=== PATIENT | female | born 1965 | race Caucasian/White ===

== ENCOUNTER 2016-09-05 15:30 | Emergency (ER) | payer BC ==
[~2016-09-05 15:30] MED LIST: ABIL10TA PO; ABIL5TAB PO; PROZ20CA11 PO; PROZ40CA PO; TRIL600T PO; ZOLP-187 PO
[2016-09-05] MEDS ORDERED: MECLIZINE 12.5 MG TAB As Ordered ONE (18:43)
[2016-09-05] MEDS ORDERED: METOCLOPRAMIDE INJ 10MG/2ML VIAL (J2765) As Ordered ONE (18:44)
[2016-09-05 18:56] LABS: BASO % 0.3 % (0.0-1.0); EOS # 0.1 K/mm3 (0.0-0.50); EOS % 1.1 % (0.0-3.0); LARGE UNSTAINED CELL # 0.2 K/mm3 (0.0-0.4); LARGE UNSTAINED CELL % 1.5 % (0.0-4.0); LYMPH # 3.8 K/mm3 (1.5-4.5); LYMPH % 30.8 % (24.0-44.0); MEAN CORPUSCULAR HGB CONC 33.6 g/dl (32.0-36.5); MEAN CORPUSCULAR VOLUME 89.2 fl (80.0-96.0); MONO # 0.4 K/mm3 (0.0-0.8); MONO % 2.9 % (0.0-5.0); NEUTROPHILS # 7.8 K/mm3 (1.8-7.7); NEUTROPHILS % 63.4 % (36.0-66.0); PLATELET COUNT, AUTOMATED 384 k/mm3 (150-450); RED CELL DISTRIBUTION WIDTH 13.4 % (11.5-14.5); WHITE BLOOD COUNT 12.2 K/mm3 (4.0-10.0)
[2016-09-05 19:15] LABS: ANION GAP 9 MEQ/L (8-16); BLOOD UREA NITROGEN 8 MG/DL (7-18); CALCIUM LEVEL 9.1 MG/DL (8.5-10.1); CARBON DIOXIDE LEVEL 27 MEQ/L (21-32); CHLORIDE LEVEL 106 MEQ/L (98-107); CREATININE FOR GFR 0.79 MG/DL (0.55-1.02); GLOMERULAR FILTRATION RATE > 60.0 (>51); GLUCOSE, FASTING 93 MG/DL (70-105); POTASSIUM SERUM 4.2 MEQ/L (3.5-5.1); SODIUM LEVEL 142 MEQ/L (136-145)
--- NOTE | 2016-09-05 19:30 | REPUSA ---
CLINICAL HISTORY: HEAD PRESSURE, RT HEARING LOSS TECHNIQUE: Multiple axial brain CT scan sections were obtained from base to vertex without contrast a dministration. COMMENTS: The study shows normal configuration of sella turcica. There are no intra or extra-axial collections. There is no mass effect or midline shift. There is no evidence of hematoma formation. No hydrocephal us is present. No abnormal calcifications are noted. No significant abnormalities are seen either in the posterior fossa or supratentorial compartment. The sinuses and mastoid air cells are patent. IMPRESSION: No evidence of acute intracranial pathology. Thank you for your kind referral of this patient.
--- NOTE | 2016-09-05 20:42 | EDDOCDS ---
Nurse's Notes [facility] Name: Kelly Simpson Age: 51 yrs Sex: Female : 1965 Arrival Date: 09/05/2016 Time: 15:30 Bed I7 29 Private MD: NONE Diagnosis: Headache;Dizziness and giddiness;Other and unspecified hearing loss-PROGRESSIVE, RIGHT EAR Presentation: 09/05 15:42 Presenting complaint: Patient states: pain to right side of head and dizziness. for a srm week. hearing loss to right ear worsening over past year. had MRI and it was negative. Presenting complaint: Patient states: pt thinks she had a seizure the other night ( Sunday night). when falling asleep was tingling and couldn't open hr eyes. Adult Sepsis Screening: The patient does not have new or worsening altered mentation. Patient's respiratory rate is less than 22. Systolic blood pressure is greater than 100. Patient has a qSOFA score of 0- Negative Sepsis Screen. Suicide/Homicide risk assessment- the patient denies having any suicidal and/or homicidal ideations and does not present with any other emotional, behavioral or mental health complaints. Status: Patient is not a rn support services or dependent. Transition of care: patient was not received from another setting of care. 15:42 Method Of Arrival: Walkin/Carried/Asstd srm 15:42 Acuity: GALEN Level 3 srm Triage Assessment: 15:44 General: Appears in no apparent distress, Behavior is anxious, appropriate for age, srm cooperative. Pain: Pain currently is 6 out of 10 on a pain scale. HIV screening NA for this visit Offered previously. EENT: Reports right ear pain. 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 Effexor Oral daily 2. gabapentin 600 mg Oral tab twice a day 3. Ritalin 20 mg Oral tab daily prn 4. Ritalin 5 mg Oral tab 1 tab at 12 noon prn - PMHx: Anxiety; Depression; - PSHx: Hysterectomy; ; oophorectomy; - Social history: Smoking status: Patient uses tobacco products, current every day smoker. No barriers to communication noted, The patient speaks fluent Bermudian, Speaks appropriately for age. - Family history: Not pertinent. - : The pt / caregiver states he / she is not on anticoagulants. Home medication list is obtained from the patient. - Exposure Risk Screening:: None identified. Screenin:14 Screening information is obtained from the patient. Fall risk: No risks identified. hs1 Assistance ADL's: requires no assistance with activities of daily living. Abuse/DV Screen: The patient / caregiver reports he/she is: not in a situation that causes fear, pain or injury. Nutritional screening: No deficits noted. Advance Directives: There is no active DNR order. home support is adequate. Assessment: 18:14 General: Appears in no apparent distress, comfortable, Behavior is appropriate for age, hs1 cooperative. Pain: Location: right ear. Neurological: Level of Consciousness is awake, alert. Respiratory: Airway is patent Respiratory effort is even, unlabored, Respiratory pattern is regular, symmetrical. Derm: Skin is pink, warm & dry. normal. 18:45 General: Appears in no apparent distress, Behavior is cooperative. Pain: Location: mcp behind right ear Pain currently is 6 out of 10 on a pain scale. Neurological: Reports headache lightheadedness. Respiratory: Airway is patent Respiratory effort is even, unlabored. Derm: Skin is pink, warm & dry. 19:23 General: Appears in no apparent distress, comfortable, Behavior is appropriate for age, ttb cooperative, pleasant. Pain: Location: right side of head. Neurological: Level of Consciousness is awake, alert, Denies blurred vision dizziness, numbness diplopia. Cardiovascular: Heart tones S1 S2 present Chest pain is denied. Respiratory: Airway is patent Respiratory effort is even, unlabored, Breath sounds are clear in right upper lobe and left upper lobe Denies cough, shortness of breath. GI: Denies nausea, vomiting, pain. Derm: Skin is normal. 20:03 Reassessment: Patient appears in no apparent distress at this time. Patient states cz symptoms have improved. pt ambulated in agustin with no difficulty. Vital Signs: 15:31 BP 159 / 99; Pulse 132; Resp 22; Temp 99.8(O); Pulse Ox 97% on R/A; Weight 79.38 kg elp (R); Height 5 ft. 3 in. (160.02 cm) (R); Pain 7/10; 18:12 BP 165 / 97; Pulse 103; Resp 18; Pulse Ox 94% ; hs1 18:47 BP 148 / 90 Supine; Pulse 98; mcp 18:47 BP 151 / 89 Sitting; Pulse 97; mcp 18:47 BP 142 / 99 Standing; Pulse 113; mcp 15:31 Body Mass Index 31.00 (79.38 kg, 160.02 cm) elp 18:12 pt noted to be very anxious and scared about possibly diagnoses. hs1 Vitals: 15:31 Log In Time: September 05, 2016 at 15:29. RN notified that patient meets Red Flag elp criteria. ED Course: 15:31 Patient visited by Berkley Ellington PCA. elp 15:31 NONE is Private Physician. elp 15:31 Patient moved to Waiting elp 15:37 Patient moved to Pre RCE elp 15:43 Triage Initiated srm 17:50 Patient moved to Triage 1 srm 18:06 Patient name changed from Kelly\S\A\S\Calvin\S\ to Kelly\S\Roula\S\Calvin. EDMS 18:06 [facility] ck7 18:06 Ar Bell MD is Attending Physician. ck7 18:06 Patient visited by Ajay Be RPA-C. ck7 18:08 [facility] Payment Agreement was scanned into MED[employer] and attached to record. gb 18:15 Patient moved to I hs1 18:44 MED Profile Sent. [facility] 18:44 CBC with Diff Sent. [facility] 18:46 Patient visited by Ajay Be RPA-C. ck7 18:46 The patient / caregiver is instructed regarding the plan of care and ED course. Patient dia has correct armband on for positive identification. Placed in gown. Bed in low position. Call light in reach. 18:46 Inserted saline lock: 20 gauge in right antecubital area and blood collected. The mcp patient tolerated the procedure well. Labs drawn. (by ED staff). Sent per order to lab. 18:47 Patient visited by Valeri Horan RN. mcp 18:47 Patient visited by Valeri Horan RN. mcp 19:22 Patient visited by Janice Edmonds RN. ttb 19:25 Patient visited by Janice Edmonds RN. ttb 19:57 Patient visited by Ajay Be RPA-C. ck7 20:23 CT Head Without Contrast Returned. EDMS 20:32 Patient visited by Ajay Be RPA-C. ck7 20:33 Yumiko Ya MD is Referral Physician. ck7 20:40 No procedures done that require assistance. cz Administered Medications: 18:54 Drug: NS 0.9% 1000 ml [sodium chloride 0.9 % intravenous solution] Route: IV; Rate: kpj bolus; Site: right antecubital; 20:41 Follow up: IV Status: Completed infusion cz 18:54 Drug: Metoclopramide 10 mg [metoclopramide 5 mg/mL injection solution] Route: IV; Rate: kpj 40 mg/hr; Infused Over: 15 mins; Site: right antecubital; 19:23 Follow up: Response: No Adverse Reaction; IV Status: Completed infusion ttb 20:41 Follow up: IV Status: Completed infusion cz 18:54 Drug: Meclizine 25 mg [meclizine 12.5 mg tablet (2 tabs)] Route: PO; kpj Order Results: Lab Order: CBC with Diff; SPEC'M 09/05/16 18:41 Test: WHITE BLOOD COUNT; Value: 12.2; Range: 4.0-10.0; Abnormal: Above high normal; Units: K/mm3; Status: F Test: RED BLOOD COUNT; Value: 5.09; Range: 4.00-5.40; Units: M/mm3; Status: F Test: HEMOGLOBIN; Value: 15.2; Range: 12.0-16.0; Units: g/dl; Status: F Test: HEMATOCRIT; Value: 45.4; Range: 36.0-47.0; Units: %; Status: F Test: MEAN CORPUSCULAR VOLUME; Value: 89.2; Range: 80.0-96.0; Units: fl; Status: F Test: MEAN CORPUSCULAR HEMOGLOBIN; Value: 30.0; Range: 27.0-33.0; Units: pg; Status: F Test: MEAN CORPUSCULAR HGB CONC; Value: 33.6; Range: 32.0-36.5; Units: g/dl; Status: F Test: RED CELL DISTRIBUTION WIDTH; Value: 13.4; Range: 11.5-14.5; Units: %; Status: F Test: PLATELET COUNT, AUTOMATED; Value: 384; Range: 150-450; Units: k/mm3; Status: F Test: NEUTROPHILS %; Value: 63.4; Range: 36.0-66.0; Units: %; Status: F Test: LYMPH %; Value: 30.8; Range: 24.0-44.0; Units: %; Status: F Test: MONO %; Value: 2.9; Range: 0.0-5.0; Units: %; Status: F Test: EOS %; Value: 1.1; Range: 0.0-3.0; Units: %; Status: F Test: BASO %; Value: 0.3; Range: 0.0-1.0; Units: %; Status: F Test: LARGE UNSTAINED CELL %; Value: 1.5; Range: 0.0-4.0; Units: %; Status: F Test: NEUTROPHILS #; Value: 7.8; Range: 1.8-7.7; Abnormal: Above high normal; Units: K/mm3; Status: F Test: LYMPH #; Value: 3.8; Range: 1.5-4.5; Units: K/mm3; Status: F Test: MONO #; Value: 0.4; Range: 0.0-0.8; Units: K/mm3; Status: F Test: EOS #; Value: 0.1; Range: 0.0-0.50; Units: K/mm3; Status: F Test: BASO #; Value: 0.0; Range: 0.0-0.2; Units: K/mm3; Status: F Test: LARGE UNSTAINED CELL #; Value: 0.2; Range: 0.0-0.4; Units: K/mm3; Status: F Lab Order: [facility] Profile; SPEC'M 09/05/16 18:41 Test: GLUCOSE, FASTING; Value: 93; Range: 70-105; Units: MG/DL; Status: F Test: BLOOD UREA NITROGEN; Value: 8; Range: 7-18; Units: MG/DL; Status: F Test: CREATININE FOR GFR; Value: 0.79; Range: 0.55-1.02; Units: MG/DL; Status: F Test: GLOMERULAR FILTRATION RATE; Value: > 60.0; Range: >51; Status: F Test: SODIUM LEVEL; Value: 142; Range: 136-145; Units: MEQ/L; Status: F Test: POTASSIUM SERUM; Value: 4.2; Range: 3.5-5.1; Units: MEQ/L; Status: F Test: CHLORIDE LEVEL; Value: 106; Range: 98-107; Units: MEQ/L; Status: F Test: CARBON DIOXIDE LEVEL; Value: 27; Range: 21-32; Units: MEQ/L; Status: F Test: ANION GAP; Value: 9; Range: 8-16; Units: MEQ/L; Status: F Test: CALCIUM LEVEL; Value: 9.1; Range: 8.5-10.1; Units: MG/DL; Status: F Test Note: ; Units are mL/min/1.73 m2 Chronic Kidney Disease Staging per NKF: Stage I & II GFR >=60 Normal to Mildly Decreased Stage III GFR 30-59 Moderately Decreased Stage IV GFR 15-29 Severely Decreased Stage V GFR <15 Very Little GFR Left ESRD GFR <15 on [employer] 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 There are no intra or extra-axial collections.; There is no mass effect or midline shift. There is no evidence of hematoma formation. No hydrocephal; us is present. No abnormal calcifications are noted.; No significant abnormalities are seen either in the posterior fossa or supratentorial compartment.; The sinuses and mastoid air cells are patent.; IMPRESSION:; No evidence of acute intracranial pathology.; Thank you for your kind referral of this patient.; ; Outcome: 19:24 CT Study completed. ttb 20:34 Discharge ordered by Provider. ck7 20:40 Discharge Assessment: Patient awake, alert and oriented x 3. No cognitive and/or cz functional deficits noted. Patient verbalized understanding of disposition instructions. patient administered narcotics - no. The following High Risk Discharge criteria are identified: None. Discharged to home ambulatory. Condition: improved. Discharge instructions given to patient, Instructed on discharge instructions, follow up and referral plans. medication usage, Demonstrated understanding of instructions, medications, Pt was receptive of discharge instructions/ teaching. Prescriptions given X 1. Property :Personal belongings accompany Pt. 20:41 Patient left the ED. cz Signatures: Dispatcher [employer] EDIA Julieta Fernández RN RN Anastacia Blnac RN RN Valeri Funes RN RN mcp Zecher, Calvin, RN RN cz Barnhardt, Gloria, Reg Reg Caroline Melo RN RN hs1 Ajay Be, RPA-C RPA-Cck7 Janice Edmonds RN RN ttb Berkley Ellington, SOHA HOYOS elp MTDLana
--- NOTE | 2016-09-05 20:42 | EDDOCDS ---
Physician Documentation [facility] Name: Kelly Simpson Age: 51 yrs Sex: Female : 1965 Arrival Date: 09/05/2016 Time: 15:30 Bed I7 Private MD: NONE Disposition: 09/05/16 20:34 Discharged to Home/Self Care. Impression: Headache, Dizziness and giddiness, Other and unspecified hearing loss - PROGRESSIVE, RIGHT EAR. - Condition is Stable. - Discharge Instructions: Hearing Loss, Dizziness, General Headache Without Cause. - Prescriptions for Meclizine 25 mg Oral Tablet - take 1 tablet by ORAL route every 8 hours As needed; 30 tablet. - Medication Reconciliation, Local Pharmacy Hours form. - Follow up: Yumiko Ya MD; When: 2 - 3 days; Reason: Recheck today's complaints, Continuance of care. - Problem is new. - Symptoms have improved. - Notes: USE MEDICATION INSTRUTCED, FOLLOW UP WITH DR YA IN THE OFFICE, HE WAS CONSULTED REGARDING YUOR CASE TODAY, RETURN TO THE ER IF THE SYMPTOMS WORSEN OR BECOME CONCERNING Historical: - Allergies: no known allergies; - Home Meds: 1. Effexor Oral daily 2. gabapentin 600 mg Oral tab twice a day 3. Ritalin 20 mg Oral tab daily prn 4. Ritalin 5 mg Oral tab 1 tab at 12 noon prn - PMHx: Anxiety; Depression; - PSHx: Hysterectomy; ; oophorectomy; - Social history: Smoking status: Patient uses tobacco products, current every day smoker. No barriers to communication noted, The patient speaks fluent French, Speaks appropriately for age. - Family history: Not pertinent. - : The pt / caregiver states he / she is not on anticoagulants. Home medication list is obtained from the patient. - Exposure Risk Screening:: None identified. 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 3 in. (160.02 cm) (R); Pain 7/10; 18:12 BP 165 / 97; Pulse 103; Resp 18; Pulse Ox 94% ; hs1 18:47 BP 148 / 90 Supine; Pulse 98; mcp 18:47 BP 151 / 89 Sitting; Pulse 97; mcp 18:47 BP 142 / 99 Standing; Pulse 113; mcp 15:31 Body Mass Index 31.00 (79.38 kg, 160.02 cm) elp 18:12 pt noted to be very anxious and scared about possibly diagnoses. hs1 MDM: 18:07 Recheck Vital Signs, perform reassessment and enter into [employer] ordered. ck7 18:08 Financial registration complete. gb 18:08 [facility] Payment Agreement was scanned into [employer] and attached to record. gb 18:18 IV Saline Lock ordered. ck7 18:18 NS 0.9% 1000 ml IV at bolus once ordered. ck7 18:18 Metoclopramide 10 mg IV at 40 mg/hr once over 15 mins ordered. ck7 18:19 Meclizine 25 mg PO once ordered. ck7 18:19 Orthostatic VS ordered. ck7 18:20 ECG WITH READING ER PHYS+CARDIAG ordered. EDMS 18:20 CBC with Diff Ordered. EDMS 18:20 MED Profile Ordered. EDMS 18:20 CT Head Without Contrast Ordered. EDMS 19:41 CBC with Diff Reviewed. ck7 19:41 MED Profile Reviewed. ck7 19:59 Ambulate Patient to Assess Patient Safety ordered. ck7 20:27 CT Head Without Contrast Reviewed. ck7 Administered Medications: 18:54 Drug: NS 0.9% 1000 ml [sodium chloride 0.9 % intravenous solution] Route: IV; Rate: kpj bolus; Site: right antecubital; 20:41 Follow up: IV Status: Completed infusion cz 18:54 Drug: Metoclopramide 10 mg [metoclopramide 5 mg/mL injection solution] Route: IV; Rate: kpj 40 mg/hr; Infused Over: 15 mins; Site: right antecubital; 19:23 Follow up: Response: No Adverse Reaction; IV Status: Completed infusion ttb 20:41 Follow up: IV Status: Completed infusion cz 18:54 Drug: Meclizine 25 mg [meclizine 12.5 mg tablet (2 tabs)] Route: PO; kpj Signatures: Dispatcher [employer] EDMS Anastacia Preciado RN RN srm Zecher, Calvin, RN RN cz Barnhardt, Crissy, Reg Reg gb Ajay Be, RPA-C RPA-Cck7 Janice Edmonds RN RN ttb Jobson, Karen RN kpj The chart was reviewed and I authenticate all verbal orders and agree with the evaluation and treatment provided.Attachments: 18:08 [facility] Payment Agreement gb MTDD
--- NOTE | 2016-09-06 08:37 | ECGEPIP ---
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
--- NOTE | 2016-09-07 21:42 | EDDOCDS ---
Physician Documentation [facility] Name: Kelly Simpson Age: 51 yrs Sex: Female : 1965 Arrival Date: 09/05/2016 Time: 15:30 Bed I7 Private MD: NONE Disposition: 09/05/16 20:34 Discharged to Home/Self Care. Impression: Headache, Dizziness and giddiness, Other and unspecified hearing loss - PROGRESSIVE, RIGHT EAR. - Condition is Stable. - Discharge Instructions: Hearing Loss, Dizziness, General Headache Without Cause. - Prescriptions for Meclizine 25 mg Oral Tablet - take 1 tablet by ORAL route every 8 hours As needed; 30 tablet. - Medication Reconciliation, Local Pharmacy Hours form. - Follow up: Yumiko Ya MD; When: 2 - 3 days; Reason: Recheck today's complaints, Continuance of care. - Problem is new. - Symptoms have improved. - Notes: USE MEDICATION INSTRUTCED, FOLLOW UP WITH DR YA IN THE OFFICE, HE WAS CONSULTED REGARDING YUOR CASE TODAY, RETURN TO THE ER IF THE SYMPTOMS WORSEN OR BECOME CONCERNING Historical: - Allergies: no known allergies; - Home Meds: 1. Effexor Oral daily 2. gabapentin 600 mg Oral tab twice a day 3. Ritalin 20 mg Oral tab daily prn 4. Ritalin 5 mg Oral tab 1 tab at 12 noon prn - PMHx: Anxiety; Depression; - PSHx: Hysterectomy; ; oophorectomy; - Social history: Smoking status: Patient uses tobacco products, current every day smoker. No barriers to communication noted, The patient speaks fluent Luxembourgish, Speaks appropriately for age. - Family history: Not pertinent. - : The pt / caregiver states he / she is not on anticoagulants. Home medication list is obtained from the patient. - Exposure Risk Screening:: None identified. 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 3 in. (160.02 cm) (R); Pain 7/10; 18:12 BP 165 / 97; Pulse 103; Resp 18; Pulse Ox 94% ; hs1 18:47 BP 148 / 90 Supine; Pulse 98; mcp 18:47 BP 151 / 89 Sitting; Pulse 97; mcp 18:47 BP 142 / 99 Standing; Pulse 113; mcp 15:31 Body Mass Index 31.00 (79.38 kg, 160.02 cm) elp 18:12 pt noted to be very anxious and scared about possibly diagnoses. hs1 MDM: 18:07 Recheck Vital Signs, perform reassessment and enter into [employer] ordered. ck7 18:08 Financial registration complete. gb 18:08 [facility] Payment Agreement was scanned into [employer] and attached to record. gb 18:18 IV Saline Lock ordered. ck7 18:18 NS 0.9% 1000 ml IV at bolus once ordered. ck7 18:18 Metoclopramide 10 mg IV at 40 mg/hr once over 15 mins ordered. ck7 18:19 Meclizine 25 mg PO once ordered. ck7 18:19 Orthostatic VS ordered. ck7 18:20 ECG WITH READING ER PHYS+CARDIAG ordered. EDMS 18:20 CBC with Diff Ordered. EDMS 18:20 MED Profile Ordered. EDMS 18:20 CT Head Without Contrast Ordered. EDMS 19:41 CBC with Diff Reviewed. ck7 19:41 MED Profile Reviewed. ck7 19:59 Ambulate Patient to Assess Patient Safety ordered. ck7 20:27 CT Head Without Contrast Reviewed. ck7 09/06 12:20 T-Sheet-- Draft Copy was scanned into [employer] and attached to record. gb 12:21 ECG/EKG was scanned into [employer] and attached to record. gb Administered Medications: 09/05 18:54 Drug: NS 0.9% 1000 ml [sodium chloride 0.9 % intravenous solution] Route: IV; Rate: kpj bolus; Site: right antecubital; 20:41 Follow up: IV Status: Completed infusion cz 18:54 Drug: Metoclopramide 10 mg [metoclopramide 5 mg/mL injection solution] Route: IV; Rate: kpj 40 mg/hr; Infused Over: 15 mins; Site: right antecubital; 19:23 Follow up: Response: No Adverse Reaction; IV Status: Completed infusion ttb 20:41 Follow up: IV Status: Completed infusion cz 18:54 Drug: Meclizine 25 mg [meclizine 12.5 mg tablet (2 tabs)] Route: PO; kpj Signatures: Dispatcher [employer] Anastacia Pruett RN RN srm Zecher, Calvin, RN RN cz Barnhardt, Gloria, Reg Reg gb Ajay Be, RPA-C RPA-Cck7 Janice Edmonds RN RN ttb Jobson, Karen RN kpj The chart was reviewed and I authenticate all verbal orders and agree with the evaluation and treatment provided.Attachments: 18:08 [facility] Payment Agreement gb 09/06 12:20 T-Sheet-- Draft Copy gb 12:21 ECG/EKG gb Chart Complete MTDD
--- NOTE | 2016-09-07 21:42 | EDDOCDS ---
Nurse's Notes [facility] Name: Kelly Simpson Age: 51 yrs Sex: Female : 1965 Arrival Date: 09/05/2016 Time: 15:30 Bed I7 29 Private MD: NONE Diagnosis: Headache;Dizziness and giddiness;Other and unspecified hearing loss-PROGRESSIVE, RIGHT EAR Presentation: 09/05 15:42 Presenting complaint: Patient states: pain to right side of head and dizziness. for a srm week. hearing loss to right ear worsening over past year. had MRI and it was negative. Presenting complaint: Patient states: pt thinks she had a seizure the other night ( Sunday night). when falling asleep was tingling and couldn't open hr eyes. Adult Sepsis Screening: The patient does not have new or worsening altered mentation. Patient's respiratory rate is less than 22. Systolic blood pressure is greater than 100. Patient has a qSOFA score of 0- Negative Sepsis Screen. Suicide/Homicide risk assessment- the patient denies having any suicidal and/or homicidal ideations and does not present with any other emotional, behavioral or mental health complaints. Status: Patient is not a career services assistant or dependent. Transition of care: patient was not received from another setting of care. 15:42 Method Of Arrival: Walkin/Carried/Asstd srm 15:42 Acuity: GALEN Level 3 srm Triage Assessment: 15:44 General: Appears in no apparent distress, Behavior is anxious, appropriate for age, srm cooperative. Pain: Pain currently is 6 out of 10 on a pain scale. HIV screening NA for this visit Offered previously. EENT: Reports right ear pain. UPFITTER: 15:44 LMP N/A - Hysterectomy srm Historical: - Allergies: no known allergies; - Home Meds: 1. Effexor Oral daily 2. gabapentin 600 mg Oral tab twice a day 3. Ritalin 20 mg Oral tab daily prn 4. Ritalin 5 mg Oral tab 1 tab at 12 noon prn - PMHx: Anxiety; Depression; - PSHx: Hysterectomy; ; oophorectomy; - Social history: Smoking status: Patient uses tobacco products, current every day smoker. No barriers to communication noted, The patient speaks fluent Faroese, Speaks appropriately for age. - Family history: Not pertinent. - : The pt / caregiver states he / she is not on anticoagulants. Home medication list is obtained from the patient. - Exposure Risk Screening:: None identified. Screenin:14 Screening information is obtained from the patient. Fall risk: No risks identified. hs1 Assistance ADL's: requires no assistance with activities of daily living. Abuse/DV Screen: The patient / caregiver reports he/she is: not in a situation that causes fear, pain or injury. Nutritional screening: No deficits noted. Advance Directives: There is no active DNR order. home support is adequate. Assessment: 18:14 General: Appears in no apparent distress, comfortable, Behavior is appropriate for age, hs1 cooperative. Pain: Location: right ear. Neurological: Level of Consciousness is awake, alert. Respiratory: Airway is patent Respiratory effort is even, unlabored, Respiratory pattern is regular, symmetrical. Derm: Skin is pink, warm & dry. normal. 18:45 General: Appears in no apparent distress, Behavior is cooperative. Pain: Location: mcp behind right ear Pain currently is 6 out of 10 on a pain scale. Neurological: Reports headache lightheadedness. Respiratory: Airway is patent Respiratory effort is even, unlabored. Derm: Skin is pink, warm & dry. 19:23 General: Appears in no apparent distress, comfortable, Behavior is appropriate for age, ttb cooperative, pleasant. Pain: Location: right side of head. Neurological: Level of Consciousness is awake, alert, Denies blurred vision dizziness, numbness diplopia. Cardiovascular: Heart tones S1 S2 present Chest pain is denied. Respiratory: Airway is patent Respiratory effort is even, unlabored, Breath sounds are clear in right upper lobe and left upper lobe Denies cough, shortness of breath. GI: Denies nausea, vomiting, pain. Derm: Skin is normal. 20:03 Reassessment: Patient appears in no apparent distress at this time. Patient states cz symptoms have improved. pt ambulated in agustin with no difficulty. Vital Signs: 15:31 BP 159 / 99; Pulse 132; Resp 22; Temp 99.8(O); Pulse Ox 97% on R/A; Weight 79.38 kg elp (R); Height 5 ft. 3 in. (160.02 cm) (R); Pain 7/10; 18:12 BP 165 / 97; Pulse 103; Resp 18; Pulse Ox 94% ; hs1 18:47 BP 148 / 90 Supine; Pulse 98; mcp 18:47 BP 151 / 89 Sitting; Pulse 97; mcp 18:47 BP 142 / 99 Standing; Pulse 113; mcp 15:31 Body Mass Index 31.00 (79.38 kg, 160.02 cm) elp 18:12 pt noted to be very anxious and scared about possibly diagnoses. hs1 Vitals: 15:31 Log In Time: September 05, 2016 at 15:29. RN notified that patient meets Red Flag elp criteria. ED Course: 15:31 Patient visited by Berkley Ellington PCA. elp 15:31 NONE is Private Physician. elp 15:31 Patient moved to Waiting elp 15:37 Patient moved to Pre RCE elp 15:43 Triage Initiated srm 17:50 Patient moved to Triage 1 srm 18:06 Patient name changed from Kelly\S\A\S\Calvin\S\ to Kelly\S\Roula\S\Calvin. EDMS 18:06 [facility] ck7 18:06 Ar Bell MD is Attending Physician. ck7 18:06 Patient visited by Ajay Be RPA-C. ck7 18:08 [facility] Payment Agreement was scanned into [employer] and attached to record. gb 18:15 Patient moved to I hs1 18:44 MED Profile Sent. [facility] 18:44 CBC with Diff Sent. [facility] 18:46 Patient visited by Ajay Be RPA-C. ck7 18:46 The patient / caregiver is instructed regarding the plan of care and ED course. Patient dia has correct armband on for positive identification. Placed in gown. Bed in low position. Call light in reach. 18:46 Inserted saline lock: 20 gauge in right antecubital area and blood collected. The mcp patient tolerated the procedure well. Labs drawn. (by ED staff). Sent per order to lab. 18:47 Patient visited by Valeri Horan RN. mcp 18:47 Patient visited by Valeri Horan RN. mcp 19:22 Patient visited by Janice Edmonds RN. ttb 19:25 Patient visited by Janice Edmonds RN. ttb 19:57 Patient visited by Ajay Be RPA-C. ck7 20:23 CT Head Without Contrast Returned. EDMS 20:32 Patient visited by Ajay Be RPA-C. ck7 20:33 Yumiko Ya MD is Referral Physician. ck7 20:40 No procedures done that require assistance. cz 09/06 08:57 EKG-ADULT Returned. EDMS 12:20 T-Sheet-- Draft Copy was scanned into [employer] and attached to record. gb 12:21 ECG/EKG was scanned into [employer] and attached to record. gb Administered Medications: 09/05 18:54 Drug: NS 0.9% 1000 ml [sodium chloride 0.9 % intravenous solution] Route: IV; Rate: kpj bolus; Site: right antecubital; 20:41 Follow up: IV Status: Completed infusion cz 18:54 Drug: Metoclopramide 10 mg [metoclopramide 5 mg/mL injection solution] Route: IV; Rate: kpj 40 mg/hr; Infused Over: 15 mins; Site: right antecubital; 19:23 Follow up: Response: No Adverse Reaction; IV Status: Completed infusion ttb 20:41 Follow up: IV Status: Completed infusion cz 18:54 Drug: Meclizine 25 mg [meclizine 12.5 mg tablet (2 tabs)] Route: PO; kpj Order Results: Lab Order: CBC with Diff; SPEC'M 09/05/16 18:41 Test: WHITE BLOOD COUNT; Value: 12.2; Range: 4.0-10.0; Abnormal: Above high normal; Units: K/mm3; Status: F Test: RED BLOOD COUNT; Value: 5.09; Range: 4.00-5.40; Units: M/mm3; Status: F Test: HEMOGLOBIN; Value: 15.2; Range: 12.0-16.0; Units: g/dl; Status: F Test: HEMATOCRIT; Value: 45.4; Range: 36.0-47.0; Units: %; Status: F Test: MEAN CORPUSCULAR VOLUME; Value: 89.2; Range: 80.0-96.0; Units: fl; Status: F Test: MEAN CORPUSCULAR HEMOGLOBIN; Value: 30.0; Range: 27.0-33.0; Units: pg; Status: F Test: MEAN CORPUSCULAR HGB CONC; Value: 33.6; Range: 32.0-36.5; Units: g/dl; Status: F Test: RED CELL DISTRIBUTION WIDTH; Value: 13.4; Range: 11.5-14.5; Units: %; Status: F Test: PLATELET COUNT, AUTOMATED; Value: 384; Range: 150-450; Units: k/mm3; Status: F Test: NEUTROPHILS %; Value: 63.4; Range: 36.0-66.0; Units: %; Status: F Test: LYMPH %; Value: 30.8; Range: 24.0-44.0; Units: %; Status: F Test: MONO %; Value: 2.9; Range: 0.0-5.0; Units: %; Status: F Test: EOS %; Value: 1.1; Range: 0.0-3.0; Units: %; Status: F Test: BASO %; Value: 0.3; Range: 0.0-1.0; Units: %; Status: F Test: LARGE UNSTAINED CELL %; Value: 1.5; Range: 0.0-4.0; Units: %; Status: F Test: NEUTROPHILS #; Value: 7.8; Range: 1.8-7.7; Abnormal: Above high normal; Units: K/mm3; Status: F Test: LYMPH #; Value: 3.8; Range: 1.5-4.5; Units: K/mm3; Status: F Test: MONO #; Value: 0.4; Range: 0.0-0.8; Units: K/mm3; Status: F Test: EOS #; Value: 0.1; Range: 0.0-0.50; Units: K/mm3; Status: F Test: BASO #; Value: 0.0; Range: 0.0-0.2; Units: K/mm3; Status: F Test: LARGE UNSTAINED CELL #; Value: 0.2; Range: 0.0-0.4; Units: K/mm3; Status: F Lab Order: MED Profile; SPEC'M 09/05/16 18:41 Test: GLUCOSE, FASTING; Value: 93; Range: 70-105; Units: MG/DL; Status: F Test: BLOOD UREA NITROGEN; Value: 8; Range: 7-18; Units: MG/DL; Status: F Test: CREATININE FOR GFR; Value: 0.79; Range: 0.55-1.02; Units: MG/DL; Status: F Test: GLOMERULAR FILTRATION RATE; Value: > 60.0; Range: >51; Status: F Test: SODIUM LEVEL; Value: 142; Range: 136-145; Units: MEQ/L; Status: F Test: POTASSIUM SERUM; Value: 4.2; Range: 3.5-5.1; Units: MEQ/L; Status: F Test: CHLORIDE LEVEL; Value: 106; Range: 98-107; Units: MEQ/L; Status: F Test: CARBON DIOXIDE LEVEL; Value: 27; Range: 21-32; Units: MEQ/L; Status: F Test: ANION GAP; Value: 9; Range: 8-16; Units: MEQ/L; Status: F Test: CALCIUM LEVEL; Value: 9.1; Range: 8.5-10.1; Units: MG/DL; Status: F Test Note: ; Units are mL/min/1.73 m2 Chronic Kidney Disease Staging per NKF: Stage I & II GFR >=60 Normal to Mildly Decreased Stage III GFR 30-59 Moderately Decreased Stage IV GFR 15-29 Severely Decreased Stage V GFR <15 Very Little GFR Left ESRD GFR <15 on RESOLUTION ANALYST Radiology Order: EKG-ADULT Test: EKG-ADULT REASON FOR EXAMINATION: dizziness; Stationary ECG Study; [facility] - ED; ; Test Date: 2016-09-05; Pat Name: KELLY SIMPSON Department:; Room: -; 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: ; : 1965 Requested By: Ajay Rodriguez PA-C; Order Number: [id number] Reading MD: Manasa Gutierrez; Measurements; Intervals [place]; Rate: 90 P: 52; VA: 141 QRS: 17; QRSD: 73 T: 45; QT: 364; QTc: 447; Interpretive Statements; SINUS RHYTHM; DELAYED R PROGRESSION; NSTTW ABNORMALITY; INCREASED RATE 01/12/16; Electronically Signed On 09-06-2016 8:37:29 EST by Manasa Gutierrez; Radiology Order: CT Head Without Contrast Test: CT Head Without Contrast REASON FOR EXAMINATION: head pressure, right hearing loss; ; CLINICAL HISTORY: HEAD PRESSURE, RT HEARING LOSS; TECHNIQUE: Multiple axial brain CT scan sections were obtained from base to vertex without contrast a; dministration.; COMMENTS:; The study shows normal configuration of sella turcica. There are no intra or extra-axial collections.; There is no mass effect or midline shift. There is no evidence of hematoma formation. No hydrocephal; us is present. No abnormal calcifications are noted.; No significant abnormalities are seen either in the posterior fossa or supratentorial compartment.; The sinuses and mastoid air cells are patent.; IMPRESSION:; No evidence of acute intracranial pathology.; Thank you for your kind referral of this patient.; ; Outcome: 19:24 CT Study completed. ttb 20:34 Discharge ordered by Provider. ck7 20:40 Discharge Assessment: Patient awake, alert and oriented x 3. No cognitive and/or cz functional deficits noted. Patient verbalized understanding of disposition instructions. patient administered narcotics - no. The following High Risk Discharge criteria are identified: None. Discharged to home ambulatory. Condition: improved. Discharge instructions given to patient, Instructed on discharge instructions, follow up and referral plans. medication usage, Demonstrated understanding of instructions, medications, Pt was receptive of discharge instructions/ teaching. Prescriptions given X 1. Property :Personal belongings accompany Pt. 20:41 Patient left the ED. cz Signatures: Dispatcher [employer] EDIL Julieta Fernández RN Anastacia Corey RN RN srm Peters, Mary, Tony Anderson RN, mcp, RN RN cz Crissy Parada, Reg Reg Caroline Tsang RN RN hs1 Ajay Be, RPA-C RPA-Cck7 Janice Edmonds RN RN Berkley Guerrero PCA HUMAN CAPITAL ANALYST elp Chart Complete MTDD
--- NOTE | 2016-09-07 21:42 | EDDOCDS ---
Physician Documentation [facility] Name: Kelly Simpson Age: 51 yrs Sex: Female : 1965 Arrival Date: 09/05/2016 Time: 15:30 Bed I7 Private MD: NONE Disposition: 09/05/16 20:34 Discharged to Home/Self Care. Impression: Headache, Dizziness and giddiness, Other and unspecified hearing loss - PROGRESSIVE, RIGHT EAR. - Condition is Stable. - Discharge Instructions: Hearing Loss, Dizziness, General Headache Without Cause. - Prescriptions for Meclizine 25 mg Oral Tablet - take 1 tablet by ORAL route every 8 hours As needed; 30 tablet. - Medication Reconciliation, Local Pharmacy Hours form. - Follow up: Yumiko Ya MD; When: 2 - 3 days; Reason: Recheck today's complaints, Continuance of care. - Problem is new. - Symptoms have improved. - Notes: USE MEDICATION INSTRUTCED, FOLLOW UP WITH DR YA IN THE OFFICE, HE WAS CONSULTED REGARDING YUOR CASE TODAY, RETURN TO THE ER IF THE SYMPTOMS WORSEN OR BECOME CONCERNING Historical: - Allergies: no known allergies; - Home Meds: 1. Effexor Oral daily 2. gabapentin 600 mg Oral tab twice a day 3. Ritalin 20 mg Oral tab daily prn 4. Ritalin 5 mg Oral tab 1 tab at 12 noon prn - PMHx: Anxiety; Depression; - PSHx: Hysterectomy; ; oophorectomy; - Social history: Smoking status: Patient uses tobacco products, current every day smoker. No barriers to communication noted, The patient speaks fluent Wolof, Speaks appropriately for age. - Family history: Not pertinent. - : The pt / caregiver states he / she is not on anticoagulants. Home medication list is obtained from the patient. - Exposure Risk Screening:: None identified. 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 3 in. (160.02 cm) (R); Pain 7/10; 18:12 BP 165 / 97; Pulse 103; Resp 18; Pulse Ox 94% ; hs1 18:47 BP 148 / 90 Supine; Pulse 98; mcp 18:47 BP 151 / 89 Sitting; Pulse 97; mcp 18:47 BP 142 / 99 Standing; Pulse 113; mcp 15:31 Body Mass Index 31.00 (79.38 kg, 160.02 cm) elp 18:12 pt noted to be very anxious and scared about possibly diagnoses. hs1 MDM: 18:07 Recheck Vital Signs, perform reassessment and enter into [employer] ordered. ck7 18:08 Financial registration complete. gb 18:08 [facility] Payment Agreement was scanned into [employer] and attached to record. gb 18:18 IV Saline Lock ordered. ck7 18:18 NS 0.9% 1000 ml IV at bolus once ordered. ck7 18:18 Metoclopramide 10 mg IV at 40 mg/hr once over 15 mins ordered. ck7 18:19 Meclizine 25 mg PO once ordered. ck7 18:19 Orthostatic VS ordered. ck7 18:20 ECG WITH READING ER PHYS+CARDIAG ordered. EDMS 18:20 CBC with Diff Ordered. EDMS 18:20 MED Profile Ordered. EDMS 18:20 CT Head Without Contrast Ordered. EDMS 19:41 CBC with Diff Reviewed. ck7 19:41 MED Profile Reviewed. ck7 19:59 Ambulate Patient to Assess Patient Safety ordered. ck7 20:27 CT Head Without Contrast Reviewed. ck7 09/06 12:20 T-Sheet-- Draft Copy was scanned into [employer] and attached to record. gb 12:21 ECG/EKG was scanned into [employer] and attached to record. gb Administered Medications: 09/05 18:54 Drug: NS 0.9% 1000 ml [sodium chloride 0.9 % intravenous solution] Route: IV; Rate: kpj bolus; Site: right antecubital; 20:41 Follow up: IV Status: Completed infusion cz 18:54 Drug: Metoclopramide 10 mg [metoclopramide 5 mg/mL injection solution] Route: IV; Rate: kpj 40 mg/hr; Infused Over: 15 mins; Site: right antecubital; 19:23 Follow up: Response: No Adverse Reaction; IV Status: Completed infusion ttb 20:41 Follow up: IV Status: Completed infusion cz 18:54 Drug: Meclizine 25 mg [meclizine 12.5 mg tablet (2 tabs)] Route: PO; kpj Signatures: Dispatcher [employer] Anastacia Pruett RN RN srm Zecher, Calvin, RN RN cz Barnhardt, Gloria, Reg Reg gb Ajay Be, RPA-C RPA-Cck7 Janice Edmonds RN RN ttb Jobson, Karen RN kpj The chart was reviewed and I authenticate all verbal orders and agree with the evaluation and treatment provided.Attachments: 18:08 [facility] Payment Agreement gb 09/06 12:20 T-Sheet-- Draft Copy gb 12:21 ECG/EKG gb Chart Complete MTDD
== END 2016-09-05 20:41 | disposition home or self-care (01) ==
LOC: M ED 15:30
DX: R51 Headache (principal); R42 Dizziness and giddiness; H91.90 Unspecified hearing loss, unspecified ear; F41.9 Anxiety disorder, unspecified; F32.9 Major depressive disorder, single episode, unspecified; F17.210 Nicotine dependence, cigarettes, uncomplicated; Z79.899 Other long term (current) drug therapy
CPT/HCPCS: 36415; 70450; 80048; 85025; 93005; 96361; 96365; 99284; J2765

== ENCOUNTER 2016-11-27 13:13 | Inpatient (IN) | payer BC ==
[~2016-11-27] VITALS: Ht 160 cm; Wt 79.7 kg
[2016-11-27] MEDS ORDERED: GABA-282 PO (13:41)
[2016-11-27] MEDS ORDERED: IBUP-1114 PO (13:41)
[2016-11-27] MEDS ORDERED: EFFE75CA75 PO (13:41)
[2016-11-27 14:47] LABS: MEAN CORPUSCULAR HEMOGLOBIN 29.9 pg (27.0-33.0); MEAN CORPUSCULAR HGB CONC 33.6 g/dl (32.0-36.5); WHITE BLOOD COUNT 12.2 K/mm3 (4.0-10.0)
[2016-11-27] MEDS ORDERED: METH20TA29 PO (14:47)
[2016-11-27] MEDS ORDERED: METH5TAB76 PO (14:47)
[2016-11-27 15:15] LABS: ALBUMIN 3.8 GM/DL (3.2-5.2); ALBUMIN/GLOBULIN RATIO 1.03 (1.00-1.93); ALKALINE PHOSPHATASE 111 U/L (45-117); ALT/SGPT 33 U/L (12-78); ANION GAP 6 MEQ/L (8-16); AST/SGOT 21 U/L (15-37); BILIRUBIN,DIRECT < 0.1 MG/DL (0.0-0.2); BILIRUBIN,TOTAL 0.2 MG/DL (0.2-1.0); BLOOD UREA NITROGEN 18 MG/DL (7-18); CALCIUM LEVEL 9.2 MG/DL (8.5-10.1); CARBON DIOXIDE LEVEL 30 MEQ/L (21-32); CHLORIDE LEVEL 106 MEQ/L (98-107); CREATININE FOR GFR 0.91 MG/DL (0.55-1.02); GLOMERULAR FILTRATION RATE > 60.0 (>51); GLUCOSE, FASTING 107 MG/DL (70-105); POTASSIUM SERUM 3.9 MEQ/L (3.5-5.1); SODIUM LEVEL 142 MEQ/L (136-145); TOTAL PROTEIN 7.5 GM/DL (6.4-8.2)
[2016-11-27] MEDS ORDERED: LORazepam 0.5 MG TAB PO STA (15:19)
[2016-11-27] MEDS ORDERED: LORazepam 1 MG TAB PO STA (15:22)
[2016-11-27] MEDS ORDERED: MOM 30ML SUSPENSION UDC PO PRN (15:45)
[2016-11-27] MEDS ORDERED: MAALOX 30 ML SUSP *UDC PO PRN (15:45)
[2016-11-27 15:46] LABS: METHADONE URINE NEGATIVE (NEGATIVE)
[2016-11-27 20:38] VITALS: BP 132/94
[2016-11-27] MEDS: traZODone 50 MG TAB PO PRN (22:03)
[2016-11-27] MEDS ORDERED: traZODone 50 MG TAB PO ONE (23:45)
[2016-11-28] MEDS: ACETAMINOPHEN TAB 650MG DOSE (2X325MG) PO PRN (00:22)
[2016-11-28 06:49] VITALS: BP 120/78
[2016-11-28] MEDS: GABAPENTIN 300 MG CAP PO SCH (08:52)
[2016-11-28] MEDS ORDERED: VENLAFAXINE **XR** 75MG CAPSULE PO SCH (09:00)
[2016-11-28] MEDS: NICOTINE 21MG/24HR 1 EA TRANSDERMAL TD SCH (09:36)
--- NOTE | 2016-11-28 10:57 | HPEPDOC ---
Medical History and Physical Date of Admission Nov 27, 2016 at 15:44 History and Physical PCP: None. ATTENDING: Dr. Dominick Cazares HPI: 51yoF admitted to [facility] for Major depression, being medically examined today. No acute medical complaints today. Denies any fevers, chills, weakness, fatigue, CHURCH, CP, SOB, cough, palpitations, abdominal pain, N/V/D or changes in bowel or bladder habits. PMHx: Depression Anxiety Bipolar disorder PSHX: Hysterectomy/oophorectomy x 1 SOCHX: Resides in: [facility] Marital Status: Kids: cares for 3 grandchildren. Employment: unemployment Tobacco use: 1 ppd ETOH: denies Illicit Drugs: Denies IV Drug Use: Denies Tattoos done unprofessionally: Denies FAMHX: Mother: Alive, Bipolar disorder Father: Alive, Lung Ca Siblings: 1 sister Alive, well Children: Alive, well Unexpected deaths due to medical reasons: None. ROS: As noted in HPI, otherwise 11pt ROS of systems reviewed and remarkable only for 2 episodes of diarrhea with anxiety episodes. PE: GEN: 51yoF, appears stated age. Well-nourished, well developed. No acute distress. Alert and oriented x 3. Pleasant, interactive. HEENT: Normocephalic, atraumatic. Pupils are equal, round, and reactive to light. Extraocular movements are intact. No nystagmus appreciated. Sclera are nonicteric. Conjunctiva without injection. Nose midline. Nasal turbinates without bogginess. EACs both patent BL. TMs both visualized and nixon with good cone of light, no bulging or erythema. No facial asymmetry. Moist mucous membranes. Dentition fair. Pharynx pink and moist, no cobblestoning. Neck supple , trachea midline. No lymphadenopathy or thyromegaly appreciated. CHEST: Regular rate and rhythm, +S1, +S2 LUNGS: Clear to auscultation bilaterally. No wheezes, rales, or rhonchi. Breathing appears symmetric and easy. Patient is speaking in full sentences. No accessory muscle use. ABD: Round, soft, non-tender, non-distended. +Bowel sounds throughout. No rebound or guarding. No costovertebral angle tenderness. EXT: Pulses 2+ bilaterally dorsalis pedis and radial. No lower extremity edema appreciated. SKIN: [place], dry, warm. Capillary refill <2sec. No rashes. NEURO: Alert and oriented x 3. Cranial nerves III-XII are intact. No focal deficits appreciated. EK09/05/16. SINUS RHYTHM DELAYED R PROGRESSION NSTTW ABNORMALITY INCREASED RATE 01/12/16 A&P: 51yoF admitted to [facility] for Major depression 1. Psych. Plan per Psychiatry. EKG on file. 2. Nicotine dependence. Patch available. 3. Leukocytosis. Pt asymptomatic, afebrile. Recheck CBC. 4. Follow up. No Primary Care Provider. Will attempt to establish PCP on discharge. 5. Staff member Marifer MAC present throughout exam. Vital Signs Vital Signs Date Time Temp Pulse Resp B/P Pulse Ox O2 Delivery O2 Flow Rate FiO2 11/28/16 06:49 97.0 98 20 120/78 11/27/16 20:38 97 Room Air Laboratory Data Labs 24H Laboratory Tests 2 11/27/16 14:36: Acetaminophen Level < 2.0L, Aspartate Amino Transf (AST/SGOT) 21, Alanine Aminotransferase (ALT/SGPT) 33, Alkaline Phosphatase 111, Total Bilirubin 0.2, Direct Bilirubin < 0.1, Albumin 3.8, Albumin/Globulin Ratio 1.03, Anion Gap 6L, Calcium Level 9.2, Ethyl Alcohol Level < 0.003, Glomerular Filtration Rate > 60.0, Salicylates Level 3.4L, Thyroid Stimulating Hormone (TSH) 0.667, Total Protein 7.5 11/27/16 15:14: Urine Amphetamines Screen NEGATIVE, Urine Benzodiazepines Screen NEGATIVE, Urine Opiates Screen NEGATIVE, Urine Barbiturates Screen NEGATIVE, Urine Cannabinoids Screen NEGATIVE, Urine Cocaine Metabolite Screen NEGATIVE, Urine Methadone Screen NEGATIVE, Urine Phencyclidine Screen NEGATIVE CBC/BMP Laboratory Tests 11/27/16 14:36 Red Blood Count 5.18, Mean Corpuscular Volume 89.0, Mean Corpuscular Hemoglobin 29.9, Mean Corpuscular Hemoglobin Concent 33.6, Red Cell Distribution Width 13.0 Home Medications Scheduled Gabapentin (Gabapentin) 300 Mg Cap 300 MG PO DAILY Methylphenidate HCl (Methylphenidate HCl) 20 Mg Tab 20 MG PO QAM Methylphenidate HCl (Methylphenidate HCl) 5 Mg Tab 5 MG PO DAILY NOON DOSE Venlafaxine Hydrochloride (Effexor Xr) 75 Mg Cap 75 MG PO DAILY Scheduled PRN Ibuprofen (Ibuprofen) 400 Mg Tab 400 MG PO Q6H PRN PRN HEADACHE Allergies Coded Allergies: No Known Allergies (Unverified , 04/24/13) Aurelia Hernandez Nov 28, 2016 10:57
[2016-11-28] MEDS ORDERED: LORazepam 1 MG TAB PO ONE (13:15)
[2016-11-28 18:00] VITALS: BP 128/78
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
[2016-11-28] MEDS: traZODone 50 MG TAB PO PRN (21:17)
[2016-11-28] MEDS: LORazepam 1 MG TAB PO SCH (21:17)
[2016-11-29 06:29] VITALS: BP 111/53
[2016-11-29 07:30] LABS: MEAN CORPUSCULAR HEMOGLOBIN 29.6 pg (27.0-33.0); MEAN CORPUSCULAR HGB CONC 32.4 g/dl (32.0-36.5); MEAN CORPUSCULAR VOLUME 91.4 fl (80.0-96.0); RED CELL DISTRIBUTION WIDTH 13.2 % (11.5-14.5); WHITE BLOOD COUNT 10.4 K/mm3 (4.0-10.0)
[2016-11-29] MEDS: NICOTINE 21MG/24HR 1 EA TRANSDERMAL TD SCH (08:26)
[2016-11-29] MEDS: GABAPENTIN 300 MG CAP PO SCH (08:26)
[2016-11-29] MEDS: LORazepam 1 MG TAB PO SCH ×3 (08:27→20:56)
[2016-11-29] MEDS ORDERED: MIRALAX *UNIT DOSE* 17GM PACKET PO PRN (09:30)
--- NOTE | 2016-11-29 12:13 | IPNPDOC ---
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 Patient reports 6/10 anxiety, 10/10 depression, denies suicidal and homicidal ideation, denies audiovisual hallucinations, denies urge to engage in self- injurious behavior. Patient denies experiencing all suicidal ideation since admission to hospital. Patient states appetite is "okay," describes concentration and focus as a "lifelong challenge," indicates she did not sleep at all last night which is contrary to EMR report. Patient reports presence of "mood swings," describes history including periods of meliza-type symptoms such as elevated mood, rapid pressured speech, increased in energy level and periods of depression noting she predominantly experiences depressed mood, is tearful at times during interaction. Patient exhibits noticeably reduced symptoms of psychomotor activity today (ringing of hands, repeatedly rubbing her arms, no rocking or pacing observed). Patient is agreeable to starting new medication today in effort to address symptoms of anxiety, depression, and mood lability. Patient denies symptoms of physical pain and presents with no signs of acute distress at time of interaction. New medication history information provided today: Seroquel - ineffective Depakote - ineffective, akathisia [place] - never trialed I-stop review completed 11/28/16 VITALS: See below NEW TEST RESULTS: No new results PAST MEDICAL/SURGICAL HISTORY: Labs on admission indicate elevated WBC and glucose, low anion gap. Leukocytosis, patient is asymptomatic, afebrile, PA is monitoring. 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 Patient presents with noticeably reduced psychomotor activity today. Speech: Mildly pressured, normal volume spontaneous, coherent Thought processes: Logical, linear, goal-directed. Thought content: Rational, logical. Abstract reasoning and computation: Appears intact. Description of associations: Intact. Description of abnormal or psychotic thoughts: Denies suicidal or homicidal ideation, denies auditory or visual hallucinations, does not appear to be responding to internal stimuli, does not endorse bizarre paranoid ideation, denies any preoccupation with violence or obsessions. Judgment: Poor Insight: Limited Orientation: A and O 3. Recent and remote memory: Appears intact. Attention span and concentration: Adequate. Fund of knowledge: Adequate. Mood: "I feel anxious and depressed." Patient appears anxious and depressed, mood is labile Affect: Constricted, congruent with mood DIAGNOSES: Unspecified mood disorder, rule out bipolar disorder, rule out MDD, rule out adjustment disorder, rule out anxiety disorder, ADHD by history. ASSESSMENT: Patient is 51-year-old female who is pleasant and cooperative, is less isolative to room, generally visible on unit, is now attending groups and participating in unit programming. Patient denies suicidal and homicidal ideation and verbalizes awareness of how to access supportive services on the unit if needed. Patient reports improvement to anxiety symptoms and what may be a reaction to recent Effexor dose increase with use of Ativan, continues to take gabapentin, and utilize trazodone last night for sleep. Patient is agreeable to initiating new medication trial in effort to address symptoms of anxiety, depression, and mood instability. Will monitor patient response to medications and monitor for medication side effects. Will also evaluate patient safety, resolution of suicidal ideation, and discharge readiness. Patient indicates when prepared for discharge she plans to return home with and follow-up for outpatient psychotherapy and medication management treatment through [facility]. MANAGEMENT PLAN: Initiate med trial of latuda 20 mg po q day at 18:00. Continue Ativan 1 mg po TID with plan to taper, continue gabapentin 300 mg po q am with plan to evaluate dose increase, continue trazodone 50 mg po hs PRN for insomnia with plan to evaluate dose increase. Patient discontinued methylphenidate several days prior to entering hospital, indicates she did not take daily Maintain safety precautions Patient to attend groups and participate in unit programming to develop coping strategies Engage patient in discharge planning process and arrange meeting with support system to ensure safe discharge planning when appropriate Patient to follow up with PCM upon discharge TIME SPENT: 35 minutes Vital Signs Vital Signs Date Time Temp Pulse Resp B/P (MAP) Pulse Ox O2 Delivery O2 Flow Rate FiO2 11/29/16 06:29 98.1 94 18 111/53 (72) Room Air 11/27/16 20:38 97 Laboratory Data CBC/BMP Laboratory Tests 11/29/16 07:13 Red Blood Count 4.95, Mean Corpuscular Volume 91.4, Mean Corpuscular Hemoglobin 29.6, Mean Corpuscular Hemoglobin Concent 32.4, Red Cell Distribution Width 13.2 Current Medications Current Medications Acetaminophen (Tylenol Tab) 650 mg Q6HP PRN PO HEADACHE or DISCOMFORT Last administered on 11/28/16 00:22; Start 11/27/16 at 15:45; Stop 12/27/16 at 15:44 Al Hydrox/Mg Hydrox/Simethicone (Mylanta) 30 ml Q4HP PRN PO HEARTBURN/ INDIGESTION; Start 11/27/16 at 15:45; Stop 12/27/16 at 15:44 Gabapentin (Neurontin) 300 mg DAILY PO Last administered on 11/29/16 08:26; Start 11/28/16 at 09:00; Stop 12/28/16 at 08:59 Home Med (Med Rec Complete!) ASDIRECTED XX ; Start 11/27/16 at 15:00; Stop at 15:00; Status DC Lorazepam (Ativan) 0.5 mg STAT STAT PO ; Start 11/27/16 at 15:19; Stop at 15:20; Status Cancel Lorazepam (Ativan) 0.5 mg STAT STAT PO Last administered on 11/27/16 15:32; Start 11/27/16 at 15:22; Stop 11/27/16 at 15:23; Status DC Lorazepam (Ativan) 1 mg TID PO Last administered on 11/29/16 08:27; Start at 21:00; Stop 12/05/16 at 20:59 Lurasidone HCl (Latuda) 20 mg DAILY@18 PO ; Start 11/29/16 at 18:00; Stop at 17:59 Magnesium Hydroxide (Milk Of Magnesia) 30 ml DAILYPRN PRN PO CONSTIPATION Last administered on 11/28/16 21:17; Start 11/27/16 at 15:45; Stop 12/27/16 at 15:44 Nicotine (Nicoderm Cq 21mg) 1 patch DAILY TD Last administered on 11/29/16 08: 26; Start 11/28/16 at 09:00; Stop 12/28/16 at 08:59 Polyethylene Glycol (Miralax) 1 pkt DAILYPRN PRN PO CONSTIPATION Last administered on 11/29/16 11:37; Start 11/29/16 at 09:30; Stop 12/29/16 at 09:29 Trazodone HCl (Desyrel) 50 mg QHSP PRN PO INSOMNIA Last administered on 21:17; Start 11/27/16 at 15:45; Stop 12/27/16 at 15:44 Venlafaxine HCl (Effexor Xr) 75 mg DAILY PO ; Start 11/28/16 at 09:00; Stop 11/28/16 at 13:04; Status DC Allergies Coded Allergies: No Known Allergies (Unverified , 04/24/13) Elizabeth Arzate Nov 29, 2016 12:13
[2016-11-29] MEDS: LURASIDONE 20 MG TAB (LATUDA) PO SCH (17:48)
[2016-11-29 18:00] VITALS: BP 128/70
[2016-11-29] MEDS: traZODone 50 MG TAB PO PRN (20:56)
[2016-11-29] MEDS: ACETAMINOPHEN TAB 650MG DOSE (2X325MG) PO PRN (20:57)
[2016-11-29] MEDS ORDERED: LORazepam 1 MG TAB PO PRN (22:30)
[2016-11-29] MEDS ORDERED: LORazepam 1 MG TAB PO ONE (22:45)
[2016-11-30 06:12] VITALS: BP 119/74
--- NOTE | 2016-11-30 08:42 | IPNPDOC ---
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 Patient reports 5/10 anxiety, 10/10 depression, denies suicidal and homicidal ideation, denies audiovisual hallucinations, denies urge to engage in self- injurious behavior. Patient denies experiencing all suicidal ideation since admission to hospital. 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 Patient indicates she has taken increased dose of trazodone in the past with good effect, is requesting to be able to take an additional 50 mg of trazodone if initial dose is ineffective. Patient continues to feel she is uncertain of gabapentin helpful, informs director underwriter sales she has taken 1200 mg per day in the past for "mood stabilization," notes she felt "no difference" as result of medication. Patient notes she so far "feels nothing" from Latuda, is aware she is on initial dose, liver, indicates she feels "my anxiety, my restless body, I think it's slowing down." Patient makes no request for lithium trial. Patient reports less mood lability, denies irritability and agitation, exhibits noticeably reduced symptoms of psychomotor activity today. Patient denies symptoms of physical pain and presents with no signs of acute distress at time of interaction. I-stop review completed 11/28/16 VITALS: See below NEW TEST RESULTS: No new results PAST MEDICAL/SURGICAL HISTORY: Labs on admission indicate elevated WBC and glucose, low anion gap. Leukocytosis, patient is asymptomatic, afebrile, PA is monitoring. 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 Patient presents with noticeably reduced psychomotor activity today. Speech: Less pressured, normal volume, spontaneous, coherent Thought processes: Logical, linear, goal-directed. Thought content: Rational, logical. Abstract reasoning and computation: Appears intact. Description of associations: Intact. Description of abnormal or psychotic thoughts: Denies suicidal or homicidal ideation, denies auditory or visual hallucinations, does not appear to be responding to internal stimuli, does not endorse bizarre paranoid ideation, denies any preoccupation with violence or obsessions. Judgment: Limited Insight: Limited Orientation: A and O 3. Recent and remote memory: Appears intact. Attention span and concentration: Adequate. Fund of knowledge: Adequate. Mood: "I feel anxious and depressed but not as anxious as I was." Patient appears less anxious, depressed, mood is labile Affect: Constricted, brightens at times, congruent with mood DIAGNOSES: Unspecified mood disorder, rule out bipolar disorder, rule out MDD, rule out adjustment disorder, rule out anxiety disorder, ADHD by history. ASSESSMENT: Patient is 51-year-old female who is pleasant and cooperative, is less isolative to room, generally visible on unit, is now attending groups and participating in unit programming. Patient denies suicidal and homicidal ideation and verbalizes awareness of how to access supportive services on the unit if needed. Patient reports improvement to anxiety symptoms and what may have been reaction to recent Effexor dose. Patient is requesting changed to trazodone dosing, continuation of Ativan, Latuda and gabapentin. Will monitor patient response to medications and monitor for medication side effects. Will also evaluate patient safety, resolution of suicidal ideation, and discharge readiness. Patient indicates when prepared for discharge she plans to return home with and follow-up for outpatient psychotherapy and medication management treatment through [facility]. MANAGEMENT PLAN: Continue Latuda 20 mg po q day at 18:00 with plan to increase tomorrow. Continue Ativan 1 mg po TID with plan to taper, continue gabapentin 300 mg po q am with plan to evaluate dose increase. Change trazodone to 50 mg po hs PRN for insomnia, may repeat 1 in 60 minutes if initial dose is ineffective. Patient discontinued methylphenidate several days prior to entering hospital, indicates she did not take daily Maintain safety precautions Patient to attend groups and participate in unit programming to develop coping strategies Engage patient in discharge planning process and arrange meeting with support system to ensure safe discharge planning when appropriate Patient to follow up with PCM upon discharge TIME SPENT: 35 minutes Vital Signs Vital Signs Date Time Temp Pulse Resp B/P (MAP) Pulse Ox O2 Delivery O2 Flow Rate FiO2 11/30/16 06:12 96.9 74 16 119/74 (89) Room Air 11/27/16 20:38 97 Current Medications Current Medications Acetaminophen (Tylenol Tab) 650 mg Q6HP PRN PO HEADACHE or DISCOMFORT Last administered on 11/29/16 20:57; Start 11/27/16 at 15:45; Stop 12/27/16 at 15:44 Al Hydrox/Mg Hydrox/Simethicone (Mylanta) 30 ml Q4HP PRN PO HEARTBURN/ INDIGESTION; Start 11/27/16 at 15:45; Stop 12/27/16 at 15:44 Gabapentin (Neurontin) 300 mg DAILY PO Last administered on 11/29/16 08:26; Start 11/28/16 at 09:00; Stop 12/28/16 at 08:59 Home Med (Med Rec Complete!) ASDIRECTED XX ; Start 11/27/16 at 15:00; Stop at 15:00; Status DC Lorazepam (Ativan) 0.5 mg STAT STAT PO ; Start 11/27/16 at 15:19; Stop at 15:20; Status Cancel Lorazepam (Ativan) 0.5 mg STAT STAT PO Last administered on 11/27/16 15:32; Start 11/27/16 at 15:22; Stop 11/27/16 at 15:23; Status DC Lorazepam (Ativan) 1 mg Q8HP PRN PO ANXIETY; Start 11/29/16 at 22:30; Stop at 22:30; Status DC Lorazepam (Ativan) 1 mg TID PO Last administered on 11/29/16 20:56; Start at 21:00; Stop 12/05/16 at 20:59 Lurasidone HCl (Latuda) 20 mg DAILY@18 PO Last administered on 11/29/16 17:48 ; Start 11/29/16 at 18:00; Stop 12/29/16 at 17:59 Magnesium Hydroxide (Milk Of Magnesia) 30 ml DAILYPRN PRN PO CONSTIPATION Last administered on 11/28/16 21:17; Start 11/27/16 at 15:45; Stop 12/27/16 at 15:44 Nicotine (Nicoderm Cq 21mg) 1 patch DAILY TD Last administered on 11/29/16 08: 26; Start 11/28/16 at 09:00; Stop 12/28/16 at 08:59 Polyethylene Glycol (Miralax) 1 pkt DAILYPRN PRN PO CONSTIPATION Last administered on 11/29/16 11:37; Start 11/29/16 at 09:30; Stop 12/29/16 at 09:29 Sertraline HCl (Zoloft) 50 mg DAILY PO ; Start 11/30/16 at 09:00; Stop 12/30/16 at 08:59 Trazodone HCl (Desyrel) 50 mg QHSP PRN PO INSOMNIA Last administered on 20:56; Start 11/27/16 at 15:45; Stop 12/27/16 at 15:44 Venlafaxine HCl (Effexor Xr) 75 mg DAILY PO ; Start 11/28/16 at 09:00; Stop 11/28/16 at 13:04; Status DC Allergies Coded Allergies: No Known Allergies (Unverified , 04/24/13) Elizabeth Arzate Nov 30, 2016 08:42
[2016-11-30] MEDS ORDERED: SERTRALINE HCL 50 MG TAB PO SCH (09:00)
[2016-11-30] MEDS: LORazepam 1 MG TAB PO SCH ×3 (09:06→20:41)
[2016-11-30] MEDS: GABAPENTIN 300 MG CAP PO SCH (09:06)
[2016-11-30] MEDS: NICOTINE 21MG/24HR 1 EA TRANSDERMAL TD SCH (09:07)
[2016-11-30] MEDS: LURASIDONE 20 MG TAB (LATUDA) PO SCH (17:49)
[2016-11-30 18:00] VITALS: BP 139/73
[2016-11-30] MEDS ORDERED: traZODone 100 MG TAB PO PRN (21:00)
[2016-11-30] MEDS ORDERED: traZODone 50 MG TAB PO PRN (21:00)
[2016-12-01 06:35] VITALS: BP 143/79
[2016-12-01] MEDS: LORazepam 1 MG TAB PO SCH ×2 (08:29→15:24)
[2016-12-01] MEDS: GABAPENTIN 300 MG CAP PO SCH (08:29)
[2016-12-01] MEDS: NICOTINE 21MG/24HR 1 EA TRANSDERMAL TD SCH (08:29)
--- NOTE | 2016-12-01 13:24 | IPNPDOC ---
Subjective Date Seen The patient was seen on 12/01/16. Subjective Chief Complaint/HPI The patient is a 51-year-old female admitted with a reason for visit of Major Depression. Events since last encounter Skin irritation left axillary area. States she has been applying deodorant over the area. Pulmonary: Denies: Dyspnea, Cough Cardiovascular: Denies: Chest Pain, Palpitations, Orthopnea, Paroxysmal Noc. Dyspnea, Lt Headedness Gastrointestinal: Denies: Nausea, Vomiting, Abdominal Pain, Diarrhea, Constipation Genitourinary: Denies: Dysuria, Frequency, Incontinence, Retention Objective Physical Examination General Exam: Positive: Alert Eye Exam: Positive: PERRLA ENT Exam: Positive: Atraumatic Neck Exam: Positive: Supple Chest Exam: Positive: Clear to auscultation, Normal air movement Heart Exam: Positive: Rate Normal, Regular Rhythm, Normal S1, Normal S2, Negative: Murmurs, Rubs Skin Exam: Positive: Nl turgor and temperature, Other skin issue (there are erythematous lesions noted in the left axillary area. There is no abscess, fluctuance, drainage.) Assessment /Plan Problems (1) Dermatitis Status: Acute Problem Text: * Advised patient to discontinue any topical creams, discontinue deodorant. * Warm water and mild soap to wash area. * Apply Bactroban twice a day * No sign of abscess, no fluctuance. * Monitor. Plan/VTE VTE Prophylaxis Ordered?: No (ambulatory) VS, I&O, 24H, Fishbone Vital Signs/I&O Vital Signs Date Time Temp Pulse Resp B/P (MAP) Pulse Ox O2 Delivery O2 Flow Rate FiO2 12/01/16 06:35 98.4 65 18 143/79 (100) Room Air 11/27/16 20:38 97 Aurelia Hernandez Dec 01, 2016 13:24
[2016-12-01] MEDS: MUPIROCIN 2% OINT 22 GM TUBE TOP SCH ×2 (14:37→21:00)
[2016-12-01] MEDS: LURASIDONE 20 MG TAB (LATUDA) PO SCH (17:48)
[2016-12-01 18:00] VITALS: BP 131/92
--- NOTE | 2016-12-01 19:18 | IPNPDOC ---
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 Patient states she is feeling "better, more hopeful and less anxious" today, notes 4/10 anxiety, 7/10 depression, denies suicidal and homicidal ideation, denies audiovisual hallucinations, denies urge to engage in self-injurious behavior. Patient denies experiencing suicidal ideation since admission to hospital. Patient states appetite is stabilizing, reiterates concentration and focus remain a challenge due to history of ADHD, reports some improvement with recent trazodone dose increase to 100 mg, however, indicates she continues to struggle with sleep maintenance and is today requesting further trazodone dose increase. Patient continues to feel uncertain as to gabapentin effectiveness, has taken 1200 mg per day in the past for "mood stabilization," noted she felt "no difference" as result of medication. Patient states she feels Latuda is beginning to be effective in helping to stabilize her mood and reduce symptoms of anxiety and depression, reports reduced symptoms of "restless body." Patient is in agreement with the latuda dose increase and beginning Ativan taper, verbalizes awareness that she will not be discharged home on benzodiazepine. Patient denies medication side effects, reports less mood lability, denies irritability, impulsivity, and agitation, exhibits noticeably reduced symptoms of psychomotor activity today. Patient denies symptoms of physical pain and presents with no signs of acute distress at time of interaction. I-stop review completed 11/28/16 VITALS: See below NEW TEST RESULTS: No new results. PAST MEDICAL/SURGICAL HISTORY: Labs on admission indicate elevated WBC and glucose, low anion gap. Leukocytosis, patient is asymptomatic, afebrile, PA is monitoring. 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 Patient presents with noticeably reduced psychomotor activity today. Speech: No pressured speech today, of normal rate, rhythm, volume, spontaneous, coherent Thought processes: Logical, linear, goal-directed. Thought content: Rational, logical. Abstract reasoning and computation: Appears intact. Description of associations: Intact. Description of abnormal or psychotic thoughts: Denies suicidal or homicidal ideation, denies auditory or visual hallucinations, does not appear to be responding to internal stimuli, does not endorse bizarre paranoid ideation, denies any preoccupation with violence or obsessions. Judgment: Limited, is improving Insight: Limited, some improvement noted Orientation: A and O 3. Recent and remote memory: Appears intact. Attention span and concentration: Adequate. Fund of knowledge: Adequate. Mood: "I feel better, still anxious and depressed but not as much as I was." Patient appears less anxious, less depressed, mood is less labile Affect: Constricted, brightens at times, congruent with mood DIAGNOSES: Unspecified mood disorder, rule out bipolar disorder, rule out MDD, rule out adjustment disorder, rule out anxiety disorder, ADHD by history. ASSESSMENT: Patient is 51-year-old female who is pleasant and cooperative, more visible on unit, is attending groups and participating in unit programming, socializes with select peers and is cooperative with staff. Patient denies suicidal and homicidal ideation and verbalizes awareness of how to access supportive services on the unit if needed. Patient reports improvement to symptoms of mood lability, anxiety, and depression, and to what may have been a reaction to outpatient Effexor dose. Patient is requesting increased to trazodone dosing, is in agreement with Ativan taper, and latuda dose increase, and continuation of gabapentin, will evaluate discontinuation of gabapentin once patient is stabilized on Latuda. Will continue to monitor patient response to medications and monitor for medication side effects. Will also evaluate patient safety, resolution of suicidal ideation, and discharge readiness. Patient indicates when prepared for discharge she plans to return home with and follow-up for outpatient psychotherapy and medication management treatment through [facility], is currently declining case management services. MANAGEMENT PLAN: Increase Latuda to 40 mg po q day at 18:00. Change Ativan to 1 mg po TID PRN on 12/02/16 and reduce Ativan to 0.5 mg po TID PRN on 12/03/16 ( orders already entered) with plan to discontinue thereafter. Continue gabapentin 300 mg po q am with plan to evaluate discontinuation. Increase trazodone to 150 mg po hs PRN for insomnia. Patient discontinued methylphenidate several days prior to entering hospital, indicates she did not take daily Maintain safety precautions Patient to attend groups and participate in unit programming to develop coping strategies Engage patient in discharge planning process and arrange meeting with support system to ensure safe discharge planning when appropriate Patient to follow up with PCM upon discharge TIME SPENT: 35 minutes Vital Signs Vital Signs Date Time Temp Pulse Resp B/P (MAP) Pulse Ox O2 Delivery O2 Flow Rate FiO2 12/01/16 18:00 97.3 110 16 131/92 (105) 12/01/16 06:35 Room Air 11/27/16 20:38 97 Current Medications Current Medications Acetaminophen (Tylenol Tab) 650 mg Q6HP PRN PO HEADACHE or DISCOMFORT Last administered on 11/29/16 20:57; Start 11/27/16 at 15:45; Stop 12/27/16 at 15:44 Al Hydrox/Mg Hydrox/Simethicone (Mylanta) 30 ml Q4HP PRN PO HEARTBURN/ INDIGESTION; Start 11/27/16 at 15:45; Stop 12/27/16 at 15:44 Gabapentin (Neurontin) 300 mg DAILY PO Last administered on 12/01/16 08:29; Start 11/28/16 at 09:00; Stop 12/28/16 at 08:59 Home Med (Med Rec Complete!) ASDIRECTED XX ; Start 11/27/16 at 15:00; Stop at 15:00; Status DC Lorazepam (Ativan) 0.5 mg Q6HP PRN PO ANXIETY; Start 12/03/16 at 08:00; Stop at 08:00; Status UNV Lorazepam (Ativan) 0.5 mg STAT STAT PO ; Start 11/27/16 at 15:19; Stop at 15:20; Status Cancel Lorazepam (Ativan) 0.5 mg STAT STAT PO Last administered on 11/27/16 15:32; Start 11/27/16 at 15:22; Stop 11/27/16 at 15:23; Status DC Lorazepam (Ativan) 1 mg Q6HP PRN PO ANXIETY; Start 12/02/16 at 08:00; Stop at 22:00; Status UNV Lorazepam (Ativan) 1 mg Q8HP PRN PO ANXIETY; Start 11/29/16 at 22:30; Stop at 22:30; Status DC Lorazepam (Ativan) 1 mg TID PO Last administered on 12/01/16 15:24; Start at 21:00; Stop 12/01/16 at 18:58; Status DC Lurasidone HCl (Latuda) 20 mg DAILY@18 PO Last administered on 11/30/16 17:49 ; Start 11/29/16 at 18:00; Stop 11/30/16 at 19:20; Status DC Lurasidone HCl (Latuda) 40 mg DAILY@18 PO Last administered on 12/01/16 17:48 ; Start 12/01/16 at 18:00; Stop 12/31/16 at 17:59 Magnesium Hydroxide (Milk Of Magnesia) 30 ml DAILYPRN PRN PO CONSTIPATION Last administered on 11/28/16 21:17; Start 11/27/16 at 15:45; Stop 12/27/16 at 15:44 Mupirocin (Bactroban 2% Ointment) 1 dose BID TOP Last administered on 14:37; Start 12/01/16 at 09:00; Stop 12/31/16 at 08:59 Nicotine (Nicoderm Cq 21mg) 1 patch DAILY TD Last administered on 12/01/16 08: 29; Start 11/28/16 at 09:00; Stop 12/28/16 at 08:59 Polyethylene Glycol (Miralax) 1 pkt DAILYPRN PRN PO CONSTIPATION Last administered on 11/29/16 11:37; Start 11/29/16 at 09:30; Stop 12/29/16 at 09:29 Sertraline HCl (Zoloft) 50 mg DAILY PO Last administered on 11/30/16 09:05; Start 11/30/16 at 09:00; Stop 11/30/16 at 11:22; Status DC Trazodone HCl (Desyrel) 50 mg QHSP PRN PO INSOMNIA Last administered on 20:56; Start 11/27/16 at 15:45; Stop 11/30/16 at 19:20; Status DC Trazodone HCl (Desyrel) 50 mg QHSP PRN PO INSOMNIA Last administered on 20:41; Start 11/30/16 at 21:00; Stop 12/01/16 at 18:58; Status DC Trazodone HCl (Desyrel) 100 mg QHSP PRN PO INSOMNIA; Start 11/30/16 at 21:00; Stop 11/30/16 at 21:00; Status DC Trazodone HCl (Desyrel) 150 mg QHSP PRN PO INSOMNIA; Start 12/01/16 at 21:00; Stop 12/31/16 at 20:59; Status UNV Venlafaxine HCl (Effexor Xr) 75 mg DAILY PO ; Start 11/28/16 at 09:00; Stop 11/28/16 at 13:04; Status DC Allergies Coded Allergies: No Known Allergies (Unverified , 04/24/13) Elizabeth Arzate Dec 01, 2016 19:18
[2016-12-01] MEDS: traZODone 50 MG TAB PO PRN (21:03)
[2016-12-01] MEDS ORDERED: LORazepam 1 MG TAB PO ONE (22:30)
[2016-12-02 06:54] VITALS: BP 120/77
[2016-12-02] MEDS ORDERED: LORazepam 1 MG TAB PO PRN (08:00)
[2016-12-02] MEDS: GABAPENTIN 300 MG CAP PO SCH (08:25)
[2016-12-02] MEDS: NICOTINE 21MG/24HR 1 EA TRANSDERMAL TD SCH (08:25)
[2016-12-02] MEDS: MUPIROCIN 2% OINT 22 GM TUBE TOP SCH ×2 (08:25→20:19)
[2016-12-02] MEDS: LORazepam 1 MG TAB PO PRN ×3 (08:26→20:19)
[2016-12-02] MEDS ORDERED: diphenhydrAMINE 50 MG CAP PO ONE (14:00)
[2016-12-02 18:00] VITALS: BP 116/80
[2016-12-02] MEDS: LURASIDONE 20 MG TAB (LATUDA) PO SCH (18:03)
[2016-12-02] MEDS: traZODone 50 MG TAB PO PRN (20:19)
[2016-12-03 07:00] VITALS: BP 111/65
[2016-12-03] MEDS ORDERED: LORazepam 0.5 MG TAB PO PRN (08:00)
--- NOTE | 2016-12-03 09:04 | IPN ---
DATE: 12/02/2016 Kelly Simpson was complaining while her was here of "akathisia." She describes that it starts as a giggle in her pelvis and moves to her leg and her foot starts moving around. She states she has had this condition for six months. She states that she was only recently taken off of Effexor, but she has had it for six months. It does not appear to be any symptom of akathisia as is generally understood. I gave the patient 50 mg of Benadryl by mouth daily.
[2016-12-03] MEDS: GABAPENTIN 300 MG CAP PO SCH (09:58)
[2016-12-03] MEDS: MUPIROCIN 2% OINT 22 GM TUBE TOP SCH ×2 (09:58→20:15)
[2016-12-03] MEDS: NICOTINE 21MG/24HR 1 EA TRANSDERMAL TD SCH (09:59)
[2016-12-03] MEDS: LORazepam 0.5 MG TAB PO PRN ×3 (09:59→20:14)
[2016-12-03] MEDS: LURASIDONE 20 MG TAB (LATUDA) PO SCH (17:55)
[2016-12-03 18:00] VITALS: BP 117/71
[2016-12-03] MEDS: traZODone 50 MG TAB PO PRN (20:14)
[2016-12-04 06:03] VITALS: BP 125/68
[2016-12-04] MEDS: GABAPENTIN 300 MG CAP PO SCH (08:32)
[2016-12-04] MEDS: NICOTINE 21MG/24HR 1 EA TRANSDERMAL TD SCH (08:32)
[2016-12-04] MEDS: MUPIROCIN 2% OINT 22 GM TUBE TOP SCH ×2 (08:33→20:51)
[2016-12-04] MEDS: LORazepam 0.5 MG TAB PO PRN (13:23)
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
[2016-12-04] MEDS: LURASIDONE 20 MG TAB (LATUDA) PO SCH (17:42)
[2016-12-04 18:00] VITALS: BP 134/86
[2016-12-04] MEDS: traZODone 50 MG TAB PO PRN (20:57)
[2016-12-05 06:04] VITALS: BP 111/59
[2016-12-05] MEDS ORDERED: LORazepam 0.5 MG TAB PO PRN (08:00)
[2016-12-05] MEDS: NICOTINE 21MG/24HR 1 EA TRANSDERMAL TD SCH (09:00)
[2016-12-05] MEDS: MUPIROCIN 2% OINT 22 GM TUBE TOP SCH (09:00)
[2016-12-05] MEDS: GABAPENTIN 300 MG CAP PO SCH (09:14)
[2016-12-05] MEDS ORDERED: LATU20TA PO (12:05)
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
== END 2016-12-05 13:50 | disposition home or self-care (01) | DRG 753 ==
LOC: M ED 14:03 → M ED INP 15:44 → M PSY 20:39
PROVIDERS: ADMIT Psychiatry & Neurology Child & Adolescent Psychiatry; ATTEND Psychiatry & Neurology Psychiatry
DX: F39 Unspecified mood [affective] disorder (principal); F17.200 Nicotine dependence, unspecified, uncomplicated; Z79.899 Other long term (current) drug therapy

== ENCOUNTER 2017-04-22 20:19 | Inpatient (IN) | payer BC ==
[~2017-04-22] VITALS: Ht 160 cm; Wt 84.0 kg
[~2017-04-22 20:19] MED LIST changes: +EFFE75CA75 PO; +GABA-282 PO; +IBUP-1114 PO; +LATU20TA PO; +METH20TA29 PO; +METH5TAB76 PO
[2017-04-22] MEDS ORDERED: METHY10TA PO (20:42)
[2017-04-22] MEDS ORDERED: HYDR-3713 PO (20:42)
[2017-04-22] MEDS ORDERED: SERT-138 PO (20:42)
[2017-04-22] MEDS ORDERED: METH5TAB76 PO (20:42)
[2017-04-22] MEDS ORDERED: ARIP1TAB4 PO (20:42)
[2017-04-22 21:38] LABS: MEAN CORPUSCULAR HGB CONC 33.9 g/dl (32.0-36.5); MEAN CORPUSCULAR VOLUME 91.3 fl (80.0-96.0); RED CELL DISTRIBUTION WIDTH 13.5 % (11.5-14.5); WHITE BLOOD COUNT 15.7 K/mm3 (4.0-10.0)
[2017-04-22 21:56] LABS: CONTROL LINE HCG INT CTR LINE PRESENT
[2017-04-22 22:01] LABS: METHADONE URINE NEGATIVE (NEGATIVE)
[2017-04-22 22:10] LABS: ALBUMIN 3.4 GM/DL (3.2-5.2); ALBUMIN/GLOBULIN RATIO 1.03 (1.00-1.93); ALKALINE PHOSPHATASE 134 U/L (45-117); ALT/SGPT 35 U/L (12-78); ANION GAP 11 MEQ/L (8-16); AST/SGOT 20 U/L (15-37); BILIRUBIN,DIRECT < 0.1 MG/DL (0.0-0.2); BILIRUBIN,TOTAL 0.2 MG/DL (0.2-1.0); BLOOD UREA NITROGEN 19 MG/DL (7-18); CALCIUM LEVEL 8.3 MG/DL (8.5-10.1); CARBON DIOXIDE LEVEL 24 MEQ/L (21-32); CHLORIDE LEVEL 108 MEQ/L (98-107); CREATININE FOR GFR 1.02 MG/DL (0.55-1.02); GLOMERULAR FILTRATION RATE > 60.0 (>51); GLUCOSE, FASTING 204 MG/DL (70-105); POTASSIUM SERUM 3.9 MEQ/L (3.5-5.1); SODIUM LEVEL 143 MEQ/L (136-145); TOTAL PROTEIN 6.7 GM/DL (6.4-8.2)
[2017-04-22] MEDS ORDERED: NICOTINE 21MG/24HR 1 EA TRANSDERMAL TD ONE (22:15)
[2017-04-22] MEDS ORDERED: LORazepam 1 MG TAB PO ONE (22:15)
[2017-04-22 23:29] VITALS: BP 108/76
[2017-04-23] MEDS ORDERED: IBUPROFEN 400 MG TAB PO PRN (01:00)
[2017-04-23] MEDS ORDERED: MAALOX 30 ML SUSP *UDC PO PRN (01:00)
[2017-04-23] MEDS ORDERED: MOM 30ML SUSPENSION UDC PO PRN (01:00)
[2017-04-23] MEDS ORDERED: NORCO, ANEXSIA 5/325MG TABLET (HYDROcodone/ACETAMINOPHEN) PO PRN (01:15)
[2017-04-23 02:00] VITALS: BP 111/72
[2017-04-23 06:40] VITALS: BP 112/68
[2017-04-23] MEDS: ARIPiprazole 2 MG TAB PO SCH (08:52)
[2017-04-23] MEDS: SERTRALINE 100 MG TAB PO SCH (08:52)
[2017-04-23] MEDS: METHYLPHENIDATE 5 MG TAB PO SCH (08:52)
[2017-04-23] MEDS: NICOTINE 7 MG/24 HR TRANSDERMAL TD SCH (08:53)
--- NOTE | 2017-04-23 09:40 | HPEPDOC ---
Medical History and Physical Date of Admission Apr 22, 2017 at 22:43 History and Physical PCP: None. ATTENDING: Dr. Dominick Cazares HPI: 51yoF admitted to [facility] for Major depression, being medically examined today. Patient is reporting right knee pain which she states has been occurring for the past 2 months. She does not recall any injury. She states it is causing her to have difficulty ambulating. Sometimes the knee swells up. She states there is constant pain. It is worse if she is walking. Nothing seems to make it better however she has been using Firth for the pain. She denies any weakness in her lower extremities. She denies falls. She denies low back pain. She denies any numbness or tingling in lower extremities. She denies hip pain. She denies loss of bowel or bladder control. She does not complain of neck pain. No weakness, numbness, or tingling in upper extremities. Denies any fevers, chills, weakness, fatigue, CHURCH, CP, SOB, cough, palpitations, abdominal pain, N/V/D or changes in bowel or bladder habits. PMHx: Depression Anxiety Bipolar disorder H/O SI, overdose. h/o shingles PSHX: Hysterectomy/oophorectomy x 1 C section SOCHX: Resides in: [facility] Marital Status: Kids: cares for 3 grandchildren. Employment: unemployment Tobacco use: 1 pack per week. ETOH: denies Illicit Drugs: Denies IV Drug Use: Denies Tattoos done unprofessionally: Denies FAMHX: Mother: Alive, Bipolar disorder, breast Ca Father: Alive, Lung Ca Siblings: 1 sister Alive, well Children: Alive, well Unexpected deaths due to medical reasons: None. ROS: As noted in HPI, otherwise 11pt ROS of systems reviewed and remarkable LMP NA, hysterectomy. PE: GEN: 51yoF, appears stated age. Well-nourished, well developed. No acute distress. Alert and oriented x 3. Pleasant, interactive. HEENT: Normocephalic, atraumatic. Pupils are equal, round, and reactive to light. Extraocular movements are intact. No nystagmus appreciated. Sclera are nonicteric. Conjunctiva without injection. Nose midline. Nasal turbinates without bogginess. EACs both patent BL. TMs both visualized and nixon with good cone of light, no bulging or erythema. No facial asymmetry. Moist mucous membranes. Dentition fair. Pharynx pink and moist, no cobblestoning. Neck supple , trachea midline. No lymphadenopathy or thyromegaly appreciated. CHEST: Regular rate and rhythm, +S1, +S2 LUNGS: Clear to auscultation bilaterally. No wheezes, rales, or rhonchi. Breathing appears symmetric and easy. Patient is speaking in full sentences. No accessory muscle use. ABD: Round, soft, non-tender, non-distended. +Bowel sounds throughout. No rebound or guarding. No costovertebral angle tenderness. EXT: Pulses 2+ bilaterally dorsalis pedis and radial. No lower extremity edema appreciated. There is no erythema or edema noted at the right knee area. Mild tenderness with palpation over the lateral and medial aspect. Mild crepitus is noted. SKIN: [place], dry, warm. Capillary refill <2sec. No rashes. NEURO: Alert and oriented x 3. Cranial nerves III-XII are intact. No focal deficits appreciated. She is ambulating without any assistive devices. EKG: pending A&P: 51yoF admitted to [facility] for Major depression 1. Psych. Plan per Psychiatry. EKG pending. 2. Nicotine dependence. Patch available. 3. Right knee pain. Check x-ray of the right knee. Elevate if needed. Apply ice if needed. Ibuprofen 400 mg every 6 hours as needed. Patient remains on Firth 5/ 325 one tablet every 6 hours as needed ordered as per pt list on admission. She states she takes "Hydrocodone" at home for her pain. Today she states it was from a previous prescription in the past for shingles. ISTOP accessed reference #[id number] indicating no results for Firth. UDS is noted to be negative for opiates. 4. Follow up. No Primary Care Provider. Will attempt to establish PCP on discharge. 5. Leukocytosis. Patient is afebrile. Asymptomatic. Recheck CBC in a.m. 6. Staff member Vicky present throughout exam. Vital Signs Vital Signs Date Time Temp Pulse Resp B/P (MAP) Pulse Ox O2 Delivery O2 Flow Rate FiO2 04/23/17 08:52 16 04/23/17 06:40 96.8 90 112/68 (83) 97 04/22/17 23:29 Room Air Laboratory Data Labs 24H Laboratory Tests 2 04/22/17 21:31: Anion Gap 11, Glomerular Filtration Rate > 60.0, Calcium Level 8.3L, Aspartate Amino Transf (AST/SGOT) 20, Alanine Aminotransferase (ALT/SGPT) 35, Alkaline Phosphatase 134H, Total Bilirubin 0.2, Direct Bilirubin < 0.1, Total Protein 6.7 , Albumin 3.4, Albumin/Globulin Ratio 1.03, Thyroid Stimulating Hormone (TSH) 0.862, Human Chorionic Gonadotropin, Qual NEGATIVE, Salicylates Level 4.0L, Urine Amphetamines Screen NEGATIVE, Urine Benzodiazepines Screen POSITIVEH, Urine Opiates Screen NEGATIVE, Urine Methadone Screen NEGATIVE, Acetaminophen Level < 2.0L, Urine Barbiturates Screen NEGATIVE, Urine Phencyclidine Screen NEGATIVE, Urine Cocaine Metabolite Screen NEGATIVE, Urine Cannabinoids Screen POSITIVEH, Ethyl Alcohol Level < 0.003 CBC/BMP Laboratory Tests 04/22/17 21:31 Red Blood Count 4.69, Mean Corpuscular Volume 91.3, Mean Corpuscular Hemoglobin 31.0, Mean Corpuscular Hemoglobin Concent 33.9, Red Cell Distribution Width 13.5 Home Medications Scheduled Aripiprazole (Aripiprazole) 2 Mg Tab, 2 MG PO DAILY for Methylphenidate HCl (Methylphenidate HCl) 5 Mg Tab, 15 MG PO QAM for Methylphenidate HCl (Methylphenidate HCl) 10 Mg Tab, 10 MG PO DAILY for TAKES AT NOON Sertraline HCl (Sertraline HCl) 100 Mg Tab, 100 MG PO DAILY for Scheduled PRN Acetaminophen/Hydrocodone (Hydrocodone/Acetaminophen 5-325 mg) 1 Tab Tab, 1 TAB PO Q6H PRN for PAIN Ibuprofen (Ibuprofen) 400 Mg Tab, 400 MG PO Q6H PRN for HEADACHE Allergies Coded Allergies: No Known Allergies (Unverified , 04/24/13) Aurelia Hernandez Apr 23, 2017 09:40
--- NOTE | 2017-04-23 11:16 | MHHPEPDOC ---
[facility] History & Physical History and Physical DATE OF ADMISSION: Apr 22, 2017 at 22:43 LEGAL STATUS AT ADMISSION: Voluntary CHIEF COMPLAINT: "I just don't feel any happiness anymore". HISTORY OF THE PRESENT ILLNESS: Patient is a 51-year-old female, who presents with depression and suicidal ideation. Pt states she has been depressed most of this year. She has partial custody of 3 grandchildren. She no longer has any relief from her medications, sertraline and Abilify. She states she is in a constant state of anxiety. Both of her parents are diagnosed with cancer and this is an additional stressor for her. She also reports akathesia. Pt has been crying a lot when at home. She was treated for anxiety and depression previously this year on this unit. Pt reports ADHD treated successfully with Ritalin while in grade school. It calmed her behavior and helped her focus. She had good grades when on the medication. Pt reports onset of Bipolar disorder at age 29. She said she was manic most of the time and would not sleep for days. She would non-stop talk and she says people were afraid of her because she was intense and irritable. She would spend her time cleaning when manic. She reports lots of thoughts all at once and not being able to concentrate or complete anything. She was prescribed Ritalin 10 mg bid during meliza!(?) She reports impulsive behavior that included shopping and spending money she could not afford to spend. Her had to take charge of her finances to get her to stop. She did not use alcohol as a mood stabilizer. She was prescribed Ativan off and on. She [facility]. Pt states she attends therapy weekly. Pt admitted to buying hydrocodone and benzo's from dealers anywhere she can find them. She reports the effects of opioid withdrawal since yesterday. She is yawning, perspiring, having diarrhea, muscle aches and cramps as well as stomach pains and itching. She has felt so low for about a year that she has been self medicating rather than tell her providers how bad her despair truly is. She loves these 3 grand children, ages 3, 5, & 7 but she cannot tolerate their needs for attention and finds them clinging on her and her not being able to respond. She wants to be loving towards them and have fun but she is overwhelmed with the care taking duties. At 51 she did not expect to be doing this for 3 children. She says her son has recently returned to correction and it appears unlikely that either parent will straighten out enough to get custody restored. the other grandmother with custody "is a partier" so she feels that would just as soon see the children go to foster care and Peg could not let that happen. She fears for the children if that happened. She identifies her as her biggest supporter. he also made her promise that she would tell us about her drug addiction. PSYCHIATRIC REVIEW OF SYSTEMS: Affective: anxious Anxiety: high. Trauma: denies Psychosis: none. Personally: cooperative. PAST PSYCHIATRIC HISTORY: Prior Psychiatric Disorder: Bipolar disorder and ADHD in childhood Outpatient Treatment: [facility] Suicidal/Self injurious: 2 previous suicide attempts by overdose on prescription meds, ICU both times. Continues with fleeting thoughts of suicide. Psychotropic Medication History: Latuda, not well tolerated, Seroquel, ineffective. Effexor, prozac, lexapro - ineffective after long trials and dose adjustments. ALLERGIES: Please see below. FAMILY PSYCHIATRIC HISTORY: needs further assessment SOCIAL HISTORY: Early Relations/development: denies abuse or neglect, no childhood trauma. Sibling order: 1 older sister - no contact Paternal relationships: raised by both parents who are still but both terminal with cancer. Education: [employer] Occupational: disabled due to bipolar disorder Legal: denies Martial: 32 years. Economic: SSDI, Supports: Abuse/trauma: denies. SUBSTANCE ABUSE HISTORY: urine positive for benzo's and cannabis. pt states has been using opiates for pain but not present in urine and not prescribed via I- STOP. PAST MEDICAL/SURGICAL HISTORY: H/O SI, overdose. h/o shingles PSHX: Hysterectomy/oophorectomy x 1 C section VITAL SIGNS: Temperature 97.9 pulse 84, respiratory rate 16, blood pressure 135/ 80, pulse oximetry 97% on room air. 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1965 Requested By: Aurelia Hernandez Order Number: [id number] Reading MD: Irving Cohen Measurements Intervals [place] Rate: 99 P: 50 CT: 154 QRS: 24 QRSD: 81 T: 46 QT: 346 QTc: 445 Interpretive Statements Normal sinus rhythm with PACs Low QRS complex voltage in the limb leads Delayed anterior R wave progression Nonspecific ST-T wave abnormalities No significant change when compared to prior tracing of 09/05/2016 Electronically Signed On 04-23-2017 21:47:26 EDT by Irving Cohen DD: Irving Cohen MD 04/23/17 [id number] MENTAL STATUS EXAMINATION: General appearance: Patient is a 51-year old female, who appears her age, short dark hair in hospital gown, good eye contact, pleasant. Speech: spontaneous Thought processes: linear. Thought content: appropriate Abstract reasoning and computation: good. Description of associations: good. Description of abnormal or psychotic thoughts: fleeting SI, no psychotic symptoms illicited.. Judgment: fair Insight: limited Orientation: well oriented x 4 Recent and remote memory: good Attention span and concentration: good. Fund of knowledge: full Mood: depressed Affect: anxious DIAGNOSES: 1. Bipolar I disorder, mixed episode, severe 2. Substance induced mood disorder 3. Substance abuse disorder. 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 There is no end in sight. She does not have time to herself and does not want to be in this situation. She does not want the children in Foster care and the parents have not proven themselves able to care for the children. Even though she shares custody with the maternal it is too much of a strain on her. She uses cannabis as well for relief. Pt really does not need to take Ritalin at this point as she does not meet criteria for ADHD. She has only 1 environment where focus and attention are problematic. With her Bipolar history and h/o meliza it is surprising she was ever prescribed a stimulant but this had been part of her regime for years. She reports good sleep but no mood improvement with Ritalin. It may actually be worse. Since her dose is very low here it will be discontinued. Instead we will treat her mixed symptoms of anxiety and depression. No benefit realize with sertraline that has been at 100 mg for over 4 weeks and was initiated at a lower dose, titrated to 100 mg. Pt feels highly anxious and despite the absence of opiates in her system she says she has been using them for a long time. She states she feels she is having withdrawal. Pt repots good sleep and adequate appetite. She is frustrated that she does not finish anything she starts and leaves the cupboard doors open. She reports her symptoms of depression have been present for the past year. PROBLEM LIST: 1. risk for suicide 2. substance abuse 3. anxiety Plan: will ask pt how she is obtaining controlled substances. One time dose given yesterday but that is all. She is also on Ritalin and provider is not comfortable prescribing 2 controlled substances for patient. I-stop does not indicate any [facility] prescription for opiates or benzo's. [employer] state search did not show any prescriptions as well so pt is likely obtaining them illegally. PT consult has been requested. Pt may use OTC pain remedies while on the inpatient unit. 04/24 PT recommends use of ice throughout the day prn for water on the knee. we will see if [facility] is able to provide suboxone services after discharge. She will need addiction therapy and a therapist who will press her for honest reporting. She needs regular drug testing for compliance. Pt needs to plan how to balance time for herself and time for child nutrition manager. Sh eand her need adult time together. Getting a sitter and respite care may be helpful. Involving more family members in child nutrition manager would also be helpful. INITIAL TREATMENT PLAN: 1. Patient was admitted on a Voluntary status 2. Complete history was obtained. 3. With patients permission, family will be contacted and database will be expanded. 4. Patients medication regimen will be reviewed and changed accordingly. 5. Patient will be provided with protected environment. 6. Patient will be treated with individual, group, and milieu therapies. 7. Patient will receive supportive psych-education. 8. Discharge planning will commence immediately. 9. Outpatient follow-up treatment will be strongly recommended. 10. The initial treatment plan will focus initially on: * see problem list ESTIMATED LENGTH OF STAY: 7-10 DAYS. TIME SPENT COUNSELING AND COORDINATING INITIAL CARE: 50 minutes. Laboratory Data 24H Labs Laboratory Tests 2 04/22/17 21:31: Anion Gap 11, Glomerular Filtration Rate > 60.0, Calcium Level 8.3L, Aspartate Amino Transf (AST/SGOT) 20, Alanine Aminotransferase (ALT/SGPT) 35, Alkaline Phosphatase 134H, Total Bilirubin 0.2, Direct Bilirubin < 0.1, Total Protein 6.7 , Albumin 3.4, Albumin/Globulin Ratio 1.03, Thyroid Stimulating Hormone (TSH) 0.862, Human Chorionic Gonadotropin, Qual NEGATIVE, Salicylates Level 4.0L, Urine Amphetamines Screen NEGATIVE, Urine Benzodiazepines Screen POSITIVEH, Urine Opiates Screen NEGATIVE, Urine Methadone Screen NEGATIVE, Acetaminophen Level < 2.0L, Urine Barbiturates Screen NEGATIVE, Urine Phencyclidine Screen NEGATIVE, Urine Cocaine Metabolite Screen NEGATIVE, Urine Cannabinoids Screen POSITIVEH, Ethyl Alcohol Level < 0.003 CBC/BMP Laboratory Tests 04/22/17 21:31 Red Blood Count 4.69, Mean Corpuscular Volume 91.3, Mean Corpuscular Hemoglobin 31.0, Mean Corpuscular Hemoglobin Concent 33.9, Red Cell Distribution Width 13.5 Medications Scheduled Aripiprazole (Aripiprazole) 2 Mg Tab, 2 MG PO DAILY for , (Reported) Methylphenidate HCl (Methylphenidate HCl) 5 Mg Tab, 15 MG PO QAM for , ( Reported) Methylphenidate HCl (Methylphenidate HCl) 10 Mg Tab, 10 MG PO DAILY for , ( Reported) TAKES AT NOON Sertraline HCl (Sertraline HCl) 100 Mg Tab, 100 MG PO DAILY for , (Reported) Scheduled PRN Acetaminophen/Hydrocodone (Hydrocodone/Acetaminophen 5-325 mg) 1 Tab Tab, 1 TAB PO Q6H PRN for PAIN, (Reported) Ibuprofen (Ibuprofen) 400 Mg Tab, 400 MG PO Q6H PRN for HEADACHE, (Reported) Allergies Coded Allergies: No Known Allergies (Unverified , 04/24/13) Valeri Rashid Apr 23, 2017 11:16
[2017-04-23] MEDS: busPIRone 10 MG TAB PO SCH ×3 (11:44→20:30)
[2017-04-23 12:03] VITALS: BP 135/80
--- NOTE | 2017-04-23 12:30 | REP ---
RIGHT KNEE: Five views of the right knee are performed and demonstrate no fracture or dislocation. There is moderate medial joint space narrowing with subchondral sclerosis and spurring. There is mild patellofemoral compartment narrowing. There is mild spurring of the superior and inferior poles of the patella as well as the lateral patellar facet. IMPRESSION: Moderate degenerative changes. Signed by Donnie Callahan MD 04/23/2017 05:01 P
[2017-04-23] MEDS: PROPRANOLOL 10 MG TAB PO SCH ×2 (14:41→20:31)
[2017-04-23 18:00] VITALS: BP 113/58
[2017-04-23] MEDS: traZODone 50 MG TAB PO PRN (20:30)
[2017-04-23 21:33] VITALS: BP 122/57
--- NOTE | 2017-04-23 21:47 | ECGEPIP ---
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
[2017-04-24 02:00] VITALS: BP 107/67
[2017-04-24 06:27] VITALS: BP 102/67
[2017-04-24] MEDS: SERTRALINE 100 MG TAB PO SCH (08:04)
[2017-04-24] MEDS: busPIRone 10 MG TAB PO SCH ×3 (08:04→20:23)
[2017-04-24] MEDS: PROPRANOLOL 10 MG TAB PO SCH ×2 (08:06→20:19)
[2017-04-24] MEDS: NICOTINE 7 MG/24 HR TRANSDERMAL TD SCH (08:06)
[2017-04-24] MEDS: METHYLPHENIDATE 5 MG TAB PO SCH (08:06)
[2017-04-24] MEDS: ARIPiprazole 2 MG TAB PO SCH (08:06)
[2017-04-24 12:00] VITALS: BP 112/75
[2017-04-24 12:16] LABS: MEAN CORPUSCULAR HGB CONC 34.2 g/dl (32.0-36.5); MEAN CORPUSCULAR VOLUME 90.6 fl (80.0-96.0); RED CELL DISTRIBUTION WIDTH 13.2 % (11.5-14.5); WHITE BLOOD COUNT 11.4 K/mm3 (4.0-10.0)
[2017-04-24] MEDS ORDERED: BUPRENORPHINE/NALOXONE 2-0.5MG SUBLINGUAL TABLET(SUBOXONE) SL STA (14:46)
[2017-04-24 18:00] VITALS: BP 130/68
[2017-04-24] MEDS: BUPRENORPHINE/NALOXONE 2-0.5MG SUBLINGUAL TABLET(SUBOXONE) SL SCH (20:19)
[2017-04-24] MEDS: traZODone 50 MG TAB PO PRN (22:39)
[2017-04-25] MEDS: ONDANSETRON 4 MG ORAL DISINTEGRATING TAB (S0181) PO PRN ×2 (04:34→10:38)
[2017-04-25 06:48] VITALS: BP 115/58
[2017-04-25 07:48] LABS: MEAN CORPUSCULAR HEMOGLOBIN 30.9 pg (27.0-33.0); MEAN CORPUSCULAR HGB CONC 34.3 g/dl (32.0-36.5); MEAN CORPUSCULAR VOLUME 90.1 fl (80.0-96.0); RED CELL DISTRIBUTION WIDTH 13.2 % (11.5-14.5)
[2017-04-25] MEDS: BUPRENORPHINE/NALOXONE 2-0.5MG SUBLINGUAL TABLET(SUBOXONE) SL SCH (09:00)
[2017-04-25] MEDS: PROPRANOLOL 10 MG TAB PO SCH ×4 (09:00→21:34)
[2017-04-25] MEDS: NICOTINE 7 MG/24 HR TRANSDERMAL TD SCH (09:40)
[2017-04-25] MEDS: DESVENLAFAXINE ER 50 MG TABLET (PRISTIQ) PO SCH (09:40)
[2017-04-25] MEDS: ARIPiprazole 2 MG TAB PO SCH (09:40)
[2017-04-25] MEDS: busPIRone 10 MG TAB PO SCH ×3 (09:40→21:34)
--- NOTE | 2017-04-25 10:05 | MHIPNPDOC ---
[facility] Progress Note Progress Note DATE OF SERVICE: 04/25/17 HISTORY: day 4 of admission for depression/bipolar disorder/substance abuse disorder VITAL SIGNS: See below. NEW TEST RESULTS: Abdominal CT done this afternoon. Labs ordered. WBC's, Neutrophils, Leukocytes remain elevated. CURRENT MEDICATIONS: See below. MENTAL STATUS EXAMINATION: Patient is a 51-year old female, who is in bed with hospital PJ's covered by sheet, good eye contact, feeling ill. Speech: Is spontaneous Language skills are intact Thought processes including: goal directed Thought content: appropriate. Abstract reasoning, and computation: good. Description of associations: good. Description of abnormal or psychotic thoughts: pt is overwhelmed by stressors, no psychotic symptoms, engaging in polysubstance abuse. Judgment: poor Insight: limited. Orientation: oriented x 4. Recent and remote memory: intact Attention span and concentration: varies Fund of knowledge: Full. Mood: dysphoric at time and pleasant other times. Affect: congruent. DIAGNOSES: 1. Bipolar I disorder, current episode mixed without psychotic features, severe. 2. ADHD by history 3. Substance abuse disorder, cannabis, benzo's, opioids and stimulants ASSESSMENT:pt has entered precipitated withdrawal unfortunately due to the wide array of substances she has been abusing and the clinical decision to try and improve withdrawal with Suboxone. Likely the amount of Benzo's in her system has complicated her withdrawal. She has been vomiting, reports diarrhea, sweating, aches in muscles, itching, yawning, headache. Pt is excused from groups today due to her medical condition. She is receiving medication to assist with symptoms. Sometimes she is irritable but she just is not feeling well. Initially she refused to do the CT scan but within an hour she changed her mind and went. Pt has started Pristiq for anxiety and depression. Seemed agreeable to Maintena for bipolar since other meds have not been beneficial to her. Pt feeling a bit more hopeful today. MANAGEMENT PLAN: case discussed with medicine. GI panel will be ordered by them and they are working up Leukocytosis. Pt has been provided Zofran for nausea/ vomiting. We will plan a family meeting with her and anyone else she would like and arrange treatment for substance abuse and bipolar disorder as an outpatient. Pt is not near ready to leave the hospital. 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 We will discuss referral to a chemical dependency program at [place] with ongoing therapy at [facility]. Will initiate Abilify Maintena for bipolar disorder if pt remains agreeable. Waiting for withdrawal symptoms to be eliminated. TIME SPENT: 25 minutes. Vital Signs Vital Signs Date Time Temp Pulse Resp B/P (MAP) Pulse Ox O2 Delivery O2 Flow Rate FiO2 04/25/17 06:48 97.2 97 18 115/58 (77) 04/23/17 06:40 97 04/22/17 23:29 Room Air Laboratory Data CBC/BMP Laboratory Tests 04/24/17 11:27 Red Blood Count 4.87, Mean Corpuscular Volume 90.6, Mean Corpuscular Hemoglobin 31.0, Mean Corpuscular Hemoglobin Concent 34.2, Red Cell Distribution Width 13.2 04/25/17 07:36 Red Blood Count 4.97, Mean Corpuscular Volume 90.1, Mean Corpuscular Hemoglobin 30.9, Mean Corpuscular Hemoglobin Concent 34.3, Red Cell Distribution Width 13.2 Current Medications Current Medications Acetaminophen/ Hydrocodone Bitart (Saluda, Anexsia 5/325) 1 tab Q6HP PRN PO MILD /MODERATE PAIN (PS 1-7) Last administered on 04/23/17 08:52; Start 04/23/17 at 01:15; Stop 04/24/17 at 01:14; Status DC Al Hydrox/Mg Hydrox/Simethicone (Mylanta) 30 ml Q4HP PRN PO HEARTBURN/ INDIGESTION; Start 04/23/17 at 01:00; Stop 05/23/17 at 00:59 Aripiprazole (AbiLIFY) 2 mg DAILY PO Last administered on 04/25/17 09:40; Start 04/23/17 at 09:00; Stop 05/23/17 at 08:59 Buprenorphine/ Naloxone (Suboxone 2/ 0.5mg) 1 tab BID SL Last administered on 20:19; Start 04/24/17 at 21:00; Stop 04/25/17 at 09:28; Status DC Buprenorphine/ Naloxone (Suboxone 2/ 0.5mg) 1 tab STAT STAT SL Last administered on 04/24/17 15:03; Start 04/24/17 at 14:46; Stop 04/24/17 at 14:47 ; Status DC Buspirone HCl (Buspar) 10 mg TID PO Last administered on 04/25/17 09:40; Start 04/23/17 at 09:00; Stop 05/23/17 at 08:59 Desvenlafaxine Succinate (Pristiq) 50 mg QAM PO Last administered on 04/25/17 09:40; Start 04/25/17 at 09:00; Stop 05/25/17 at 08:59 Home Med (Med Rec Complete!) ASDIRECTED XX ; Start 04/22/17 at 23:45; Stop at 23:45; Status DC Hydroxyzine HCl (Atarax) 25 mg Q6HP PRN PO ANXIETY; Start 04/23/17 at 11:15; Stop 05/23/17 at 11:14 Ibuprofen (Advil) 400 mg Q6HP PRN PO PAIN Last administered on 04/23/17 09:56 ; Start 04/23/17 at 01:00; Stop 05/23/17 at 00:59 Lorazepam (Ativan) 0.5 mg Q8HP PRN PO CIWA; Start 04/25/17 at 09:45; Stop 05/02 at 09:44 Magnesium Hydroxide (Milk Of Magnesia) 30 ml DAILYPRN PRN PO CONSTIPATION; Start 04/23/17 at 01:00; Stop 05/23/17 at 00:59 Methylphenidate HCl (Ritalin) 5 mg QAM PO Last administered on 04/24/17 08:06 ; Start 04/23/17 at 09:00; Stop 04/24/17 at 14:51; Status DC Nicotine (Nicoderm Cq 7 Mg) 1 patch DAILY TD Last administered on 04/25/17 09: 40; Start 04/23/17 at 09:00; Stop 05/23/17 at 08:59 Ondansetron HCl (Zofran Odt) 4 mg Q4HP PRN PO NAUSEA OR VOMITING Last administered on 04/25/17 04:34; Start 04/25/17 at 04:30; Stop 05/25/17 at 04: 29 Propranolol HCl (Inderal) 10 mg BID PO Last administered on 04/24/17 20:19; Start 04/23/17 at 09:00; Stop 04/25/17 at 09:31; Status DC Propranolol HCl (Inderal) 10 mg TID PO ; Start 04/25/17 at 09:00; Stop at 08:59 Sertraline HCl (Zoloft) 100 mg DAILY PO Last administered on 04/24/17 08:04; Start 04/23/17 at 09:00; Stop 04/24/17 at 14:29; Status DC Trazodone HCl (Desyrel) 50 mg QHSP PRN PO INSOMNIA Last administered on 22:39; Start 04/23/17 at 01:00; Stop 05/23/17 at 00:59 Allergies Coded Allergies: No Known Allergies (Unverified , 04/24/13) Valeri Rashid Apr 25, 2017 10:05
[2017-04-25 10:13] LABS: BASO % 0.1 % (0.0-1.0); EOS % 0.2 % (0.0-3.0); LARGE UNSTAINED CELL # 0.1 K/mm3 (0.0-0.4); LARGE UNSTAINED CELL % 0.9 % (0.0-4.0); LYMPH # 1.8 K/mm3 (1.5-4.5); LYMPH % 13.4 % (24.0-44.0); MEAN CORPUSCULAR HEMOGLOBIN 30.6 pg (27.0-33.0); MEAN CORPUSCULAR VOLUME 89.8 fl (80.0-96.0); MONO # 0.2 K/mm3 (0.0-0.8); MONO % 1.4 % (0.0-5.0); NEUTROPHILS # 11.6 K/mm3 (1.8-7.7); NEUTROPHILS % 83.9 % (36.0-66.0); PLATELET COUNT, AUTOMATED 373 k/mm3 (150-450); WHITE BLOOD COUNT 13.8 K/mm3 (4.0-10.0)
[2017-04-25 10:14] LABS: REASON FOR REVIEW COMPREHENSIVE REVIEW
[2017-04-25 10:20] VITALS: BP 118/64
[2017-04-25] MEDS: LORazepam 0.5 MG TAB PO PRN (10:20)
[2017-04-25 11:04] LABS: ERYTHROCYTE SEDIMENTATION RATE 5 mm/hr (0-30)
--- NOTE | 2017-04-25 11:17 | IPNPDOC ---
Date Seen The patient was seen on 04/25/17. Progress Note HPI: 51yoF admitted to [facility] for Major depression, being medically examined today. Requested to re evaluate Pt related to abdominal pain, Nausea and vomitting. She was placed on Suboxone yesterday related to Pt coming off opiates and benzodiazepine which pt states she had been buying on the street. Today, the suboxone was d/cd and Pt plced on CIWA related to N/V. Pt states she has had N/V since yesterday, reports abdominal cramping. Loose stools since yesterday. Denies constipation. Denies fever/chills. Also discussed with Pt regarding elevated WBC, Pt states "that is always like that" but does not recall any previous workup. Denies any fevers, chills, weakness, fatigue, CHURCH, CP, SOB, cough, palpitations, changes in bladder habits. PMHx: Depression Anxiety Bipolar disorder H/O SI, overdose. h/o shingles PSHX: Hysterectomy/oophorectomy x 1 C section PE: GEN: 51yoF, appears stated age. Well-nourished, well developed. No acute distress. Alert and oriented x 3. Pleasant, interactive. HEENT: Normocephalic, atraumatic. Pupils are equal, round, and reactive to light. Extraocular movements are intact. No nystagmus appreciated. Sclera are nonicteric. Conjunctiva without injection. Nose midline. No facial asymmetry. Moist mucous membranes. Pharynx pink and moist, no cobblestoning. Neck supple, trachea midline. No lymphadenopathy or thyromegaly appreciated. CHEST: Regular rate and rhythm, +S1, +S2 LUNGS: Clear to auscultation bilaterally. No wheezes, rales, or rhonchi. Breathing appears symmetric and easy. Patient is speaking in full sentences. No accessory muscle use. ABD: Round, soft, non-tender, non-distended. +Bowel sounds throughout. No rebound or guarding. No costovertebral angle tenderness. EXT: Pulses 2+ bilaterally dorsalis pedis and radial. No lower extremity edema appreciated. There is no erythema or edema noted at the right knee area. Mild tenderness with palpation over the lateral and medial aspect. Mild crepitus is noted. SKIN: [place], dry, warm. Capillary refill <2sec. No rashes. NEURO: Alert and oriented x 3. Cranial nerves III-XII are intact. No focal deficits appreciated. She is ambulating without any assistive devices. EKG: Normal sinus rhythm with PACs Low QRS complex voltage in the limb leads Delayed anterior R wave progression Nonspecific ST-T wave abnormalities No significant change when compared to prior tracing of 09/05/2016 XR Rt Knee Moderate degenerative changes. A&P: 51yoF admitted to [facility] for Major depression 1. Psych. Plan per Psychiatry. EKG pending. 2. Nicotine dependence. Patch available. 3. Right knee pain. PT recommends outpt F/U. Elevate if needed. Apply ice if needed. Ibuprofen 400 mg every 6 hours as needed. Patient off [place]. ISTOP accessed reference #[id number] indicating no results for [place]. UDS is noted to be negative for opiates. 4. Follow up. No Primary Care Provider. Will attempt to establish PCP on discharge. 5. Leukocytosis. Patient is afebrile. Asymptomatic. ESR/CRP pending. Peripheral smear pending. Pt states this has been longstanding but no previous evaluation in the past. 6. Abdominal pain/N/V/diarrhea. Possibly related to withdrawal symptoms. Pt states symptoms have been persistent. Pt is afebrile. Continue Zofran as needed. Will Update CBCd/CMP. Add lipase. GI panel with recurrent loose stools. CT A/P. [place] diet, plenty of fluids. 7. Staff member Vanna MAC present throughout exam. VS, I&O, 24H, Fishbone Vital Signs/I&O Vital Signs Date Time Temp Pulse Resp B/P (MAP) Pulse Ox O2 Delivery O2 Flow Rate FiO2 04/25/17 10:21 96 118/64 04/25/17 06:48 97.2 18 04/23/17 06:40 97 04/22/17 23:29 Room Air Laboratory Data 24H LABS Laboratory Tests 2 04/25/17 09:36: White Blood Count 13.8H, Red Blood Count 4.95, Hemoglobin 15.1, Hematocrit 44.4 , Mean Corpuscular Volume 89.8, Mean Corpuscular Hemoglobin 30.6, Mean Corpuscular Hemoglobin Concent 34.0, Red Cell Distribution Width 13.0, Platelet Count 373, Neutrophils (%) (Auto) 83.9H, Lymphocytes (%) (Auto) 13.4L, Monocytes (%) (Auto) 1.4, Eosinophils (%) (Auto) 0.2, Basophils (%) (Auto) 0.1, Neutrophils # (Auto) 11.6H, Lymphocytes # (Auto) 1.8, Monocytes # (Auto) 0.2, Eosinophils # (Auto) 0.0, Basophils # (Auto) 0.0, Large Unclassified Cells % 0.9 , Large Unclassified Cells # 0.1, Differential Slide Review Report, Differential Pathologist's Review COMPREHENSIVE REVIEW, Peripheral Blood Smear Path Consult PERIPHERAL SMEAR, Erythrocyte Sedimentation Rate 5 CBC/BMP Laboratory Tests 04/24/17 11:27 Red Blood Count 4.87, Mean Corpuscular Volume 90.6, Mean Corpuscular Hemoglobin 31.0, Mean Corpuscular Hemoglobin Concent 34.2, Red Cell Distribution Width 13.2 04/25/17 07:36 Red Blood Count 4.97, Mean Corpuscular Volume 90.1, Mean Corpuscular Hemoglobin 30.9, Mean Corpuscular Hemoglobin Concent 34.3, Red Cell Distribution Width 13.2 04/25/17 09:36 Red Blood Count 4.95, Mean Corpuscular Volume 89.8, Mean Corpuscular Hemoglobin 30.6, Mean Corpuscular Hemoglobin Concent 34.0, Red Cell Distribution Width 13.0 , Neutrophils (%) (Auto) 83.9 H, Lymphocytes (%) (Auto) 13.4 L, Monocytes (%) ( Auto) 1.4, Eosinophils (%) (Auto) 0.2, Basophils (%) (Auto) 0.1, Neutrophils # ( Auto) 11.6 H, Lymphocytes # (Auto) 1.8, Monocytes # (Auto) 0.2, Eosinophils # ( Auto) 0.0, Basophils # (Auto) 0.0 Aurelia Hernandez Apr 25, 2017 11:17
[2017-04-25 12:34] LABS: ALBUMIN 3.6 GM/DL (3.2-5.2); ALBUMIN/GLOBULIN RATIO 0.97 (1.00-1.93); ALKALINE PHOSPHATASE 100 U/L (45-117); ALT/SGPT 38 U/L (12-78); ANION GAP 9 MEQ/L (8-16); AST/SGOT 21 U/L (15-37); BILIRUBIN,TOTAL 0.2 MG/DL (0.2-1.0); BLOOD UREA NITROGEN 18 MG/DL (7-18); CALCIUM LEVEL 9.2 MG/DL (8.5-10.1); CARBON DIOXIDE LEVEL 30 MEQ/L (21-32); CHLORIDE LEVEL 102 MEQ/L (98-107); CREATININE FOR GFR 0.78 MG/DL (0.55-1.02); GLOMERULAR FILTRATION RATE > 60.0 (>51); GLUCOSE, FASTING 110 MG/DL (70-105); POTASSIUM SERUM 4.1 MEQ/L (3.5-5.1); SODIUM LEVEL 141 MEQ/L (136-145); TOTAL PROTEIN 7.3 GM/DL (6.4-8.2)
--- NOTE | 2017-04-25 15:03 | REP ---
CT abdomen and pelvis without IV or oral contrast: Renal stone protocol. History: Abdominal pain, nausea and vomiting. Comparison CT study is from [facility] dated June 16, 2005. CT findings: Preliminary digital solid surface fabricator radiographs are unremarkable. The lung bases show mild linear plate-like atelectasis or fibrosis in the right middle lobe and right lower lobe. There is mild diffuse fatty infiltration of the liver. The liver is not felt to be enlarged. No focal splenic lesion is seen. No adrenal lesion is observed on either side. The gallbladder and the pancreas are unremarkable. The kidneys are morphologically intact. No hydronephrosis or intrarenal calculus is seen. No ureteral calculus is observed. No pelvic mass or adenopathy is seen. The small and large bowel loops are unremarkable except for a few diverticula in the sigmoid colon . No abdominal wall defect is observed. Bone window settings show no bony destructive lesion. Impression: Mild fatty infiltration of the liver diffusely. Linear fibrosis right base. Minimal sigmoid colon diverticulosis. Otherwise negative CT study abdomen and pelvis. Signed by Perfecto Arriaga MD 04/25/2017 05:25 P
[2017-04-25 18:32] VITALS: BP 110/62
[2017-04-25 21:00] VITALS: BP 122/74
[2017-04-25] MEDS: traZODone 50 MG TAB PO PRN (21:34)
[2017-04-25 21:35] VITALS: BP 123/76
[2017-04-26 06:50] VITALS: BP 117/59
[2017-04-26 07:32] LABS: BASO % 0.1 % (0.0-1.0); EOS # 0.2 K/mm3 (0.0-0.50); EOS % 1.4 % (0.0-3.0); LARGE UNSTAINED CELL # 0.2 K/mm3 (0.0-0.4); LARGE UNSTAINED CELL % 1.8 % (0.0-4.0); LYMPH # 3.5 K/mm3 (1.5-4.5); LYMPH % 31.5 % (24.0-44.0); MEAN CORPUSCULAR HEMOGLOBIN 31.1 pg (27.0-33.0); MONO # 0.5 K/mm3 (0.0-0.8); MONO % 4.7 % (0.0-5.0); NEUTROPHILS # 6.6 K/mm3 (1.8-7.7); NEUTROPHILS % 60.4 % (36.0-66.0); PLATELET COUNT, AUTOMATED 335 k/mm3 (150-450); RED CELL DISTRIBUTION WIDTH 12.9 % (11.5-14.5)
[2017-04-26 07:34] LABS: ALBUMIN 3.5 GM/DL (3.2-5.2); ALKALINE PHOSPHATASE 91 U/L (45-117); ALT/SGPT 38 U/L (12-78); ANION GAP 8 MEQ/L (8-16); AST/SGOT 24 U/L (15-37); BILIRUBIN,TOTAL 0.4 MG/DL (0.2-1.0); BLOOD UREA NITROGEN 19 MG/DL (7-18); CALCIUM LEVEL 9.4 MG/DL (8.5-10.1); CARBON DIOXIDE LEVEL 31 MEQ/L (21-32); CHLORIDE LEVEL 102 MEQ/L (98-107); CREATININE FOR GFR 0.76 MG/DL (0.55-1.02); GLOMERULAR FILTRATION RATE > 60.0 (>51); GLUCOSE, FASTING 108 MG/DL (70-105); POTASSIUM SERUM 3.9 MEQ/L (3.5-5.1); SODIUM LEVEL 141 MEQ/L (136-145)
[2017-04-26 08:08] VITALS: BP 111/64
[2017-04-26] MEDS: PROPRANOLOL 10 MG TAB PO SCH ×3 (08:14→21:19)
[2017-04-26] MEDS: ARIPiprazole 2 MG TAB PO SCH (08:14)
[2017-04-26] MEDS: DESVENLAFAXINE ER 50 MG TABLET (PRISTIQ) PO SCH (08:15)
[2017-04-26] MEDS: LORazepam 0.5 MG TAB PO PRN (08:15)
[2017-04-26] MEDS: NICOTINE 7 MG/24 HR TRANSDERMAL TD SCH (08:15)
[2017-04-26] MEDS: busPIRone 10 MG TAB PO SCH ×3 (08:15→21:18)
[2017-04-26] MEDS: hydrOXYzine 25 MG TAB PO PRN (16:50)
--- NOTE | 2017-04-26 17:29 | MHIPNPDOC ---
[facility] Progress Note Progress Note DATE OF SERVICE: 04/26/17 HISTORY: day 5 of admission for bipolar disorder VITAL SIGNS: See below. NEW TEST RESULTS: na CURRENT MEDICATIONS: See below. MENTAL STATUS EXAMINATION: Patient is a 51-year old female, who is in bed with hospital PJ's covered by sheet, good eye contact, pleasant and cooperative Speech: Is spontaneous Language skills are intact Thought processes including: goal directed Thought content: appropriate. Abstract reasoning, and computation: good. Description of associations: good. Description of abnormal or psychotic thoughts: pt is overwhelmed by stressors, no psychotic symptoms, engaging in polysubstance abuse. Judgment: fair Insight: limited. Orientation: oriented x 4. Recent and remote memory: intact Attention span and concentration: varies Fund of knowledge: Full. Mood: dysphoric at times and pleasant other times. Affect: congruent. DIAGNOSES: 1. Bipolar I disorder, current episode mixed without psychotic features, severe. 2. ADHD by history 3. Substance abuse disorder, cannabis, benzo's, opioids and stimulants ASSESSMENT:pt is experiencing mood swings along with her current crisis of substance withdrawal. We will order the Abilify Maintena since she has not had success with other medications and her compliance is in question. Pt is counseled on the importance of outpatient treatment for substance abuse but she is minimizing her need for such support. She feels her and family will be all the support she needs and that she will not resume buying controlled substances off the street. Pt continues to have a poor appetite, forcing herself to take nourishment. She is highly anxious and not stable enough for discharge. She is not suicidal but due to her withdrawal we have to let her body clear before we introduce the VIRAMONTES (Maintena). We hope she can take the shot soon. Her hygiene is adequate and she is attending programming as well as she can tolerate. MANAGEMENT PLAN: 400 mg of Abilify Maintena ordered. anxiety remains high but interventions limited as she is already taking propranolol. Will discuss use of SGA seroquel for calming as atarax makes her hyper and jittery. TIME SPENT: 25 minutes. Vital Signs Vital Signs Date Time Temp Pulse Resp B/P (MAP) Pulse Ox O2 Delivery O2 Flow Rate FiO2 04/26/17 15:59 73 120/70 04/26/17 06:50 97.0 16 04/23/17 06:40 97 9/17/17 23:29 Room Air Laboratory Data 24H Labs Laboratory Tests 2 04/26/17 06:57: Anion Gap 8, Glomerular Filtration Rate > 60.0, Blood Urea Nitrogen 19H, Creatinine 0.76, Sodium Level 141, Potassium Level 3.9, Chloride Level 102, Carbon Dioxide Level 31, Calcium Level 9.4, Aspartate Amino Transf (AST/SGOT) 24 , Alanine Aminotransferase (ALT/SGPT) 38, Alkaline Phosphatase 91, Total Bilirubin 0.4#, Total Protein 7.0, Albumin 3.5, C-Reactive Protein, Quantitative 1.23H, Albumin/Globulin Ratio 1.00 04/26/17 06:58: White Blood Count 11.0H, Red Blood Count 4.99, Hemoglobin 15.5, Hematocrit 44.4 , Mean Corpuscular Volume 89.0, Mean Corpuscular Hemoglobin 31.1, Mean Corpuscular Hemoglobin Concent 35.0, Red Cell Distribution Width 12.9, Platelet Count 335, Neutrophils (%) (Auto) 60.4, Lymphocytes (%) (Auto) 31.5, Monocytes ( %) (Auto) 4.7, Eosinophils (%) (Auto) 1.4, Basophils (%) (Auto) 0.1, Neutrophils # (Auto) 6.6, Lymphocytes # (Auto) 3.5, Monocytes # (Auto) 0.5, Eosinophils # (Auto) 0.2, Basophils # (Auto) 0.0, Large Unclassified Cells % 1.8 , Large Unclassified Cells # 0.2 04/26/17 13:00: Urine Appearance HAZY, Urine Color YELLOW, Urine pH 5.0, Urine Specific [place] 1.019, Urine Protein NEGATIVE, Urine Glucose (UA) NEGATIVE, Urine Ketones NEGATIVE, Urine Urobilinogen 0.2, Urine Bilirubin NEGATIVE, Urine Leukocyte Esterase NEGATIVE, Urine Blood 1+H, Urine Nitrite NEGATIVE, Urine WBC (Auto) 8H , Urine RBC (Auto) 1, Urine Hyaline Casts (Auto) 0, Urine Bacteria (Auto) NEGATIVE, Urine Squamous Epithelial Cells 8, Urine Mucus (Auto) SMALL, Urine Sperm (Auto) CBC/BMP Laboratory Tests 04/26/17 06:57 Calcium Level 9.4, Aspartate Amino Transf (AST/SGOT) 24, Alanine Aminotransferase (ALT/SGPT) 38, Alkaline Phosphatase 91, Total Bilirubin 0.4 #, Total Protein 7.0, Albumin 3.5 04/26/17 06:58 Red Blood Count 4.99, Mean Corpuscular Volume 89.0, Mean Corpuscular Hemoglobin 31.1, Mean Corpuscular Hemoglobin Concent 35.0, Red Cell Distribution Width 12.9 , Neutrophils (%) (Auto) 60.4, Lymphocytes (%) (Auto) 31.5, Monocytes (%) (Auto ) 4.7, Eosinophils (%) (Auto) 1.4, Basophils (%) (Auto) 0.1, Neutrophils # (Auto ) 6.6, Lymphocytes # (Auto) 3.5, Monocytes # (Auto) 0.5, Eosinophils # (Auto) 0.2, Basophils # (Auto) 0.0 Current Medications Current Medications Acetaminophen/ Hydrocodone Bitart ([place], Anexsia 5/325) 1 tab Q6HP PRN PO MILD /MODERATE PAIN (PS 1-7) Last administered on 04/23/17 08:52; Start 04/23/17 at 01:15; Stop 04/24/17 at 01:14; Status DC Al Hydrox/Mg Hydrox/Simethicone (Mylanta) 30 ml Q4HP PRN PO HEARTBURN/ INDIGESTION; Start 04/23/17 at 01:00; Stop 05/23/17 at 00:59 Aripiprazole (AbiLIFY) 2 mg DAILY PO Last administered on 04/26/17 08:14; Start 04/23/17 at 09:00; Stop 05/23/17 at 08:59 Buprenorphine/ Naloxone (Suboxone 2/ 0.5mg) 1 tab BID SL Last administered on 20:19; Start 04/24/17 at 21:00; Stop 04/25/17 at 09:28; Status DC Buprenorphine/ Naloxone (Suboxone 2/ 0.5mg) 1 tab STAT STAT SL Last administered on 04/24/17 15:03; Start 04/24/17 at 14:46; Stop 04/24/17 at 14:47 ; Status DC Buspirone HCl (Buspar) 10 mg TID PO Last administered on 04/26/17 15:59; Start 04/23/17 at 09:00; Stop 05/23/17 at 08:59 Desvenlafaxine Succinate (Pristiq) 50 mg QAM PO Last administered on 04/26/17 08:15; Start 04/25/17 at 09:00; Stop 05/25/17 at 08:59 Home Med (Med Rec Complete!) ASDIRECTED XX ; Start 04/22/17 at 23:45; Stop at 23:45; Status DC Hydroxyzine HCl (Atarax) 25 mg Q6HP PRN PO ANXIETY Last administered on 16:50; Start 04/23/17 at 11:15; Stop 05/23/17 at 11:14 Ibuprofen (Advil) 400 mg Q6HP PRN PO PAIN Last administered on 04/23/17 09:56 ; Start 04/23/17 at 01:00; Stop 05/23/17 at 00:59 Lorazepam (Ativan) 0.5 mg Q8HP PRN PO CIWA Last administered on 04/26/17 08:15 ; Start 04/25/17 at 09:45; Stop 05/02/17 at 09:44 Magnesium Hydroxide (Milk Of Magnesia) 30 ml DAILYPRN PRN PO CONSTIPATION; Start 04/23/17 at 01:00; Stop 05/23/17 at 00:59 Methylphenidate HCl (Ritalin) 5 mg QAM PO Last administered on 04/24/17 08:06 ; Start 04/23/17 at 09:00; Stop 04/24/17 at 14:51; Status DC Nicotine (Nicoderm Cq 7 Mg) 1 patch DAILY TD Last administered on 04/26/17 08: 15; Start 04/23/17 at 09:00; Stop 05/23/17 at 08:59 Ondansetron HCl (Zofran Odt) 4 mg Q4HP PRN PO NAUSEA OR VOMITING Last administered on 04/25/17 10:38; Start 04/25/17 at 04:30; Stop 05/25/17 at 04: 29 Propranolol HCl (Inderal) 10 mg BID PO Last administered on 04/24/17 20:19; Start 04/23/17 at 09:00; Stop 04/25/17 at 09:31; Status DC Propranolol HCl (Inderal) 10 mg TID PO Last administered on 04/26/17 15:59; Start 04/25/17 at 09:00; Stop 05/25/17 at 08:59 Sertraline HCl (Zoloft) 100 mg DAILY PO Last administered on 04/24/17 08:04; Start 04/23/17 at 09:00; Stop 04/24/17 at 14:29; Status DC Trazodone HCl (Desyrel) 50 mg QHSP PRN PO INSOMNIA Last administered on 21:34; Start 04/23/17 at 01:00; Stop 05/23/17 at 00:59 Allergies Coded Allergies: No Known Allergies (Unverified , 04/24/13) Valeri Rashid Apr 26, 2017 17:29
[2017-04-26 18:00] VITALS: BP 120/70
[2017-04-26] MEDS: traZODone 50 MG TAB PO PRN (21:19)
[2017-04-27 06:00] VITALS: BP 112/59
[2017-04-27] MEDS ORDERED: ARIPiprazole MONOHYDRATE 400 MG INJ (ABILIFY)(J0401) IM ONE (08:30)
[2017-04-27] MEDS: NICOTINE 7 MG/24 HR TRANSDERMAL TD SCH (08:38)
[2017-04-27] MEDS: DESVENLAFAXINE ER 50 MG TABLET (PRISTIQ) PO SCH (08:38)
[2017-04-27] MEDS: PROPRANOLOL 10 MG TAB PO SCH ×3 (08:38→21:00)
[2017-04-27] MEDS: busPIRone 10 MG TAB PO SCH ×3 (08:38→21:00)
[2017-04-27 11:54] VITALS: BP 106/62
--- NOTE | 2017-04-27 15:01 | MHIPNPDOC ---
[facility] Progress Note Progress Note DATE OF SERVICE: 04/27/17 HISTORY: day 6 of admission for SI due to stressors, noncompliance, substance abuse VITAL SIGNS: See below. NEW TEST RESULTS: na CURRENT MEDICATIONS: See below. MENTAL STATUS EXAMINATION: Patient is a 51-year old female, who is in bed with hospital PJ's covered by sheet, good eye contact, smiling enjoying her rest . Speech: Is spontaneous Language skills are intact Thought processes including: goal directed Thought content: appropriate. Abstract reasoning, and computation: good. Description of associations: good. Description of abnormal or psychotic thoughts: pt is overwhelmed by stressors, no psychotic symptoms, engaging in polysubstance abuse. Judgment: fair Insight: limited. Orientation: oriented x 4. Recent and remote memory: intact Attention span and concentration: varies Fund of knowledge: Full. Mood: dysphoric at time and pleasant other times. Affect: congruent. DIAGNOSES: 1. Bipolar I disorder, current episode mixed without psychotic features, severe. 2. ADHD by history 3. Substance abuse disorder, cannabis, benzo's, opioids and stimulants ASSESSMENT:pt attended activities group and made a butterfly today. She has been resting off and on. Her mood is improving as well an anxiety. She exhibits a lot of movement of lower extremities. Pt is interacting appropriately with peers and staff. MANAGEMENT PLAN: VIRAMONTES of Abilify Maintena given today. Seroquel prn added to med profile for anxiety. Enc pt out of bed and out of room, monitor safety. Prior Auth for Pristiq submitted. TIME SPENT: 15 minutes. Vital Signs Vital Signs Date Time Temp Pulse Resp B/P (MAP) Pulse Ox O2 Delivery O2 Flow Rate FiO2 04/27/17 11:54 88 106/62 04/27/17 06:00 97.4 16 04/23/17 06:40 97 04/22/17 23:29 Room Air Current Medications Current Medications Acetaminophen/ Hydrocodone Bitart ([place], Anexsia 5/325) 1 tab Q6HP PRN PO MILD /MODERATE PAIN (PS 1-7) Last administered on 04/23/17t 08:52; Start 04/23/17 at 01:15; Stop 04/24/17 at 01:14; Status DC Al Hydrox/Mg Hydrox/Simethicone (Mylanta) 30 ml Q4HP PRN PO HEARTBURN/ INDIGESTION; Start 04/23/17 at 01:00; Stop 05/23/17 at 00:59 Aripiprazole (AbiLIFY) 2 mg DAILY PO Last administered on 04/26/17 08:14; Start 04/23/17 at 09:00; Stop 04/27/17 at 08:31; Status DC Buprenorphine/ Naloxone (Suboxone 2/ 0.5mg) 1 tab BID SL Last administered on 20:19; Start 04/24/17 at 21:00; Stop 04/25/17 at 09:28; Status DC Buprenorphine/ Naloxone (Suboxone 2/ 0.5mg) 1 tab STAT STAT SL Last administered on 04/24/17 15:03; Start 04/24/17 at 14:46; Stop 04/24/17 at 14:47 ; Status DC Buspirone HCl (Buspar) 10 mg TID PO Last administered on 04/27/17 08:38; Start 04/23/17 at 09:00; Stop 05/23/17 at 08:59 Desvenlafaxine Succinate (Pristiq) 50 mg QAM PO Last administered on 04/27/17 08:38; Start 04/25/17 at 09:00; Stop 05/25/17 at 08:59 Home Med (Med Rec Complete!) ASDIRECTED XX ; Start 04/22/17 at 23:45; Stop at 23:45; Status DC Hydroxyzine HCl (Atarax) 25 mg Q6HP PRN PO ANXIETY Last administered on 16:50; Start 04/23/17 at 11:15; Stop 05/23/17 at 11:14 Ibuprofen (Advil) 400 mg Q6HP PRN PO PAIN Last administered on 04/23/17 09:56 ; Start 04/23/17 at 01:00; Stop 05/23/17 at 00:59 Lorazepam (Ativan) 0.5 mg Q8HP PRN PO CIWA Last administered on 04/26/17 08:15 ; Start 04/25/17 at 09:45; Stop 05/02/17 at 09:44 Magnesium Hydroxide (Milk Of Magnesia) 30 ml DAILYPRN PRN PO CONSTIPATION; Start 04/23/17 at 01:00; Stop 05/23/17 at 00:59 Methylphenidate HCl (Ritalin) 5 mg QAM PO Last administered on 04/24/17 08:06 ; Start 04/23/17 at 09:00; Stop 04/24/17 at 14:51; Status DC Nicotine (Nicoderm Cq 7 Mg) 1 patch DAILY TD Last administered on 04/27/17 08: 38; Start 04/23/17 at 09:00; Stop 05/23/17 at 08:59 Ondansetron HCl (Zofran Odt) 4 mg Q4HP PRN PO NAUSEA OR VOMITING Last administered on 04/25/17 10:38; Start 04/25/17 at 04:30; Stop 05/25/17 at 04: 29 Prazosin HCl ([place]ip[place]) 1 mg QHS PO ; Start 04/27/17 at 21:00; Stop 05/27/17 at 20:59 Propranolol HCl (Inderal) 10 mg BID PO Last administered on 04/24/17 20:19; Start 04/23/17 at 09:00; Stop 04/25/17 at 09:31; Status DC Propranolol HCl (Inderal) 10 mg TID PO Last administered on 04/27/17 08:38; Start 04/25/17 at 09:00; Stop 05/25/17 at 08:59 Quetiapine Fumarate (SEROquel) 12.5 mg Q6HP PRN PO ANXIETY; Start 04/27/17 at 08:30; Stop 05/27/17 at 08:29 Sertraline HCl (Zoloft) 100 mg DAILY PO Last administered on 04/24/17 08:04; Start 04/23/17 at 09:00; Stop 04/24/17 at 14:29; Status DC Trazodone HCl (Desyrel) 50 mg QHSP PRN PO INSOMNIA Last administered on 21:19; Start 04/23/17 at 01:00; Stop 05/23/17 at 00:59 Allergies Coded Allergies: No Known Allergies (Unverified , 04/24/13) Valeri Rashid Apr 27, 2017 15:01
[2017-04-27] MEDS ORDERED: BENZTROPINE 1 MG TAB PO PRN (16:30)
[2017-04-27 18:32] VITALS: BP 117/69
[2017-04-27] MEDS: PRAZOSIN 1 MG CAP PO SCH (21:00)
[2017-04-27] MEDS: traZODone 50 MG TAB PO PRN (21:00)
[2017-04-27 21:18] VITALS: BP 127/79
[2017-04-28 06:51] LABS: BASO % 0.4 % (0.0-1.0); EOS # 0.6 K/mm3 (0.0-0.50); EOS % 6.3 % (0.0-3.0); LARGE UNSTAINED CELL # 0.2 K/mm3 (0.0-0.4); LARGE UNSTAINED CELL % 1.9 % (0.0-4.0); LYMPH # 2.7 K/mm3 (1.5-4.5); LYMPH % 28.3 % (24.0-44.0); MEAN CORPUSCULAR HEMOGLOBIN 30.7 pg (27.0-33.0); MEAN CORPUSCULAR HGB CONC 34.3 g/dl (32.0-36.5); MEAN CORPUSCULAR VOLUME 89.3 fl (80.0-96.0); MONO # 0.4 K/mm3 (0.0-0.8); MONO % 4.5 % (0.0-5.0); NEUTROPHILS # 5.6 K/mm3 (1.8-7.7); NEUTROPHILS % 58.6 % (36.0-66.0); PLATELET COUNT, AUTOMATED 322 k/mm3 (150-450); RED CELL DISTRIBUTION WIDTH 12.9 % (11.5-14.5); WHITE BLOOD COUNT 9.5 K/mm3 (4.0-10.0)
[2017-04-28 07:17] VITALS: BP 114/64
[2017-04-28] MEDS: DESVENLAFAXINE ER 50 MG TABLET (PRISTIQ) PO SCH (08:03)
[2017-04-28] MEDS: NICOTINE 7 MG/24 HR TRANSDERMAL TD SCH (08:03)
[2017-04-28] MEDS: PROPRANOLOL 10 MG TAB PO SCH ×3 (08:04→20:28)
[2017-04-28] MEDS: busPIRone 10 MG TAB PO SCH ×3 (08:04→20:27)
[2017-04-28 09:06] VITALS: BP 125/75
[2017-04-28] MEDS: hydrOXYzine 25 MG TAB PO PRN (12:20)
[2017-04-28 18:25] VITALS: BP 109/60
[2017-04-28 20:28] VITALS: BP 126/81
[2017-04-28] MEDS: QUEtiapine FUMARATE 12.5 MG HALF-TAB PO PRN (20:28)
[2017-04-28] MEDS: traZODone 50 MG TAB PO PRN (20:28)
[2017-04-28] MEDS: PRAZOSIN 1 MG CAP PO SCH (20:28)
[2017-04-29 06:26] VITALS: BP 106/61
[2017-04-29] MEDS: PROPRANOLOL 10 MG TAB PO SCH ×3 (09:06→20:57)
[2017-04-29] MEDS: DESVENLAFAXINE ER 50 MG TABLET (PRISTIQ) PO SCH (09:06)
[2017-04-29] MEDS: busPIRone 10 MG TAB PO SCH ×3 (09:07→20:56)
[2017-04-29] MEDS: NICOTINE 7 MG/24 HR TRANSDERMAL TD SCH (09:08)
[2017-04-29 18:47] VITALS: BP 125/71
[2017-04-29] MEDS: QUEtiapine FUMARATE 12.5 MG HALF-TAB PO PRN (20:56)
[2017-04-29] MEDS: PRAZOSIN 1 MG CAP PO SCH (20:56)
[2017-04-29] MEDS: traZODone 50 MG TAB PO PRN (20:56)
[2017-04-30 06:39] VITALS: BP 96/54
[2017-04-30] MEDS: PROPRANOLOL 10 MG TAB PO SCH ×3 (08:00→20:26)
[2017-04-30] MEDS: DESVENLAFAXINE ER 50 MG TABLET (PRISTIQ) PO SCH (08:00)
[2017-04-30] MEDS: NICOTINE 7 MG/24 HR TRANSDERMAL TD SCH (08:00)
[2017-04-30] MEDS: busPIRone 10 MG TAB PO SCH ×3 (08:01→20:26)
--- NOTE | 2017-04-30 13:24 | MHIPNPDOC ---
[facility] Progress Note Progress Note DATE OF SERVICE: 04/30/17 HISTORY: day 9 of admission for si VITAL SIGNS: See below. NEW TEST RESULTS: na CURRENT MEDICATIONS: See below. MENTAL STATUS EXAMINATION: Patient is a 51-year old female, who [place] [facility] [place] dressed in street clothes, short dark hair, smiling, pleasant and cooperative. Speech: Is spontaneous Language skills are intact Thought processes including: goal directed Thought content: appropriate. Abstract reasoning, and computation: good. Description of associations: good. Description of abnormal or psychotic thoughts: pt is overwhelmed by stressors, no psychotic symptoms, engaging in polysubstance abuse. Judgment: fair Insight: limited. Orientation: oriented x 4. Recent and remote memory: intact Attention span and concentration: varies Fund of knowledge: Full. Mood: good. Affect: congruent. DIAGNOSES: 1. Bipolar I disorder, current episode mixed without psychotic features, severe. 2. ADHD by history 3. Substance abuse disorder, cannabis, benzo's, opioids and stimulants ASSESSMENT:Pt is expressing readiness for discharge. She is cautioned to reconsider the support she will need to sustain abstainence from substances once she returns to the stressors of her life. Even reading recovery oriented material can be a help when trying to live drug free. pt is confident her therapist will help her stay on [facility] right track and she states she is ready to be honest with her therapist about what has been going on in her life in terms of buying drugs off the street to self-medicate. Pt has been visible on the unit throughout the weekend. She has a positive attitude. She is missing her family and ready to resume her routine. She denies any thoughts of wishing she were or of wanting to harm herself or others. Sleep has improved. Mood and anxiety are improved. No side effects reported related to Maintena injection. MANAGEMENT PLAN: continue Maintena as an outpatient and keep all out pt appointments for MH. Continue safety and sleep monitoring. Pt informed to notify her outpatient providers in [place] that they will need to obtain a Prior Auth for ongoing tx with Maintena as her insurance company was not able to provide the paperwork to us since the indication is rather new for Maintena and Bipolar I disorder. TIME SPENT: 15 minutes. Vital Signs Vital Signs Date Time Temp Pulse Resp B/P (MAP) Pulse Ox O2 Delivery O2 Flow Rate FiO2 04/30/17 08:00 94 121/71 04/30/17 06:39 98.0 16 Current Medications Current Medications Acetaminophen/ Hydrocodone Bitart ([place], [place] 5/325) 1 tab Q6HP PRN PO MILD /MODERATE PAIN (PS 1-7) Last administered on 04/23/17 08:52; Start 04/23/17 at 01:15; Stop 04/24/17 at 01:14; Status DC Al Hydrox/Mg Hydrox/Simethicone (Mylanta) 30 ml Q4HP PRN PO HEARTBURN/ INDIGESTION; Start 04/23/17 at 01:00; Stop 05/23/17 at 00:59 Aripiprazole (AbiLIFY) 2 mg DAILY PO Last administered on 04/26/17 08:14; Start 04/23/17 at 09:00; Stop 04/27/17 at 08:31; Status DC Benztropine Mesylate (Cogentin) 1 mg Q6HP PRN PO EPS; Start 04/27/17 at 16:30; Stop 05/27/17 at 16:29 Buprenorphine/ Naloxone (Suboxone 2/ 0.5mg) 1 tab BID SL Last administered on 20:19; Start 04/24/17 at 21:00; Stop 04/25/17 at 09:28; Status DC Buprenorphine/ Naloxone (Suboxone 2/ 0.5mg) 1 tab STAT STAT SL Last administered on 04/24/17 15:03; Start 04/24/17 at 14:46; Stop 04/24/17 at 14:47 ; Status DC Buspirone HCl (Buspar) 10 mg TID PO Last administered on 04/30/17 08:01; Start 04/23/17 at 09:00; Stop 05/23/17 at 08:59 Desvenlafaxine Succinate (Pristiq) 50 mg QAM PO Last administered on 04/30/17 08:00; Start 04/25/17 at 09:00; Stop 05/25/17 at 08:59 Home Med (Med Rec Complete!) ASDIRECTED XX ; Start 04/22/17 at 23:45; Stop at 23:45; Status DC Hydroxyzine HCl (Atarax) 25 mg Q6HP PRN PO ANXIETY Last administered on 12:20; Start 04/23/17 at 11:15; Stop 05/23/17 at 11:14 Ibuprofen (Advil) 400 mg Q6HP PRN PO PAIN Last administered on 04/23/17 09:56 ; Start 04/23/17 at 01:00; Stop 05/23/17 at 00:59 Lorazepam (Ativan) 0.5 mg Q8HP PRN PO CIWA Last administered on 04/26/17 08:15 ; Start 04/25/17 at 09:45; Stop 05/02/17 at 09:44 Magnesium Hydroxide (Milk Of Magnesia) 30 ml DAILYPRN PRN PO CONSTIPATION; Start 04/23/17 at 01:00; Stop 05/23/17 at 00:59 Methylphenidate HCl (Ritalin) 5 mg QAM PO Last administered on 04/24/17 08:06 ; Start 04/23/17 at 09:00; Stop 04/24/17 at 14:51; Status DC Nicotine (Nicoderm Cq 7 Mg) 1 patch DAILY TD Last administered on 04/30/17 08: 00; Start 04/23/17 at 09:00; Stop 05/23/17 at 08:59 Ondansetron HCl (Zofran Odt) 4 mg Q4HP PRN PO NAUSEA OR VOMITING Last administered on 04/25/17 10:38; Start 04/25/17 at 04:30; Stop 05/25/17 at 04: 29 Prazosin HCl (Minipress) 1 mg QHS PO Last administered on 04/29/17 20:56; Start 04/27/17 at 21:00; Stop 05/27/17 at 20:59 Propranolol HCl (Inderal) 10 mg BID PO Last administered on 04/24/17 20:19; Start 04/23/17 at 09:00; Stop 04/25/17 at 09:31; Status DC Propranolol HCl (Inderal) 10 mg TID PO Last administered on 04/30/17 08:00; Start 04/25/17 at 09:00; Stop 05/25/17 at 08:59 Quetiapine Fumarate (SEROquel) 12.5 mg Q6HP PRN PO ANXIETY Last administered on 04/29/17 20:56; Start 04/27/17 at 08:30; Stop 05/27/17 at 08:29 Sertraline HCl (Zoloft) 100 mg DAILY PO Last administered on 04/24/17 08:04; Start 04/23/17 at 09:00; Stop 04/24/17 at 14:29; Status DC Trazodone HCl (Desyrel) 50 mg QHSP PRN PO INSOMNIA Last administered on 20:56; Start 04/23/17 at 01:00; Stop 05/23/17 at 00:59 Allergies Coded Allergies: No Known Allergies (Unverified , 04/24/13) Valeri Rashid Apr 30, 2017 13:24
[2017-04-30 18:00] VITALS: BP 119/69
[2017-04-30] MEDS: QUEtiapine FUMARATE 12.5 MG HALF-TAB PO PRN (20:26)
[2017-04-30] MEDS: PRAZOSIN 1 MG CAP PO SCH (20:27)
[2017-05-01 06:26] VITALS: BP 106/58
[2017-05-01] MEDS: NICOTINE 7 MG/24 HR TRANSDERMAL TD SCH (08:36)
[2017-05-01] MEDS: PROPRANOLOL 10 MG TAB PO SCH ×2 (08:36→14:07)
[2017-05-01] MEDS: busPIRone 10 MG TAB PO SCH ×2 (08:36→14:06)
[2017-05-01] MEDS: DESVENLAFAXINE ER 50 MG TABLET (PRISTIQ) PO SCH (08:36)
[2017-05-01 14:07] VITALS: BP 125/83
[2017-05-01] MEDS ORDERED: QUET1TAB7 PO (14:27)
[2017-05-01] MEDS ORDERED: PROP10TAB PO (14:27)
[2017-05-01] MEDS ORDERED: BUSP10TA PO (14:27)
[2017-05-01] MEDS ORDERED: BENZ-52 PO (14:27)
[2017-05-01] MEDS ORDERED: PRIS50TA PO (14:27)
[2017-05-01] MEDS ORDERED: TRAZO50TA PO (14:27)
[2017-05-01] MEDS ORDERED: MINI1CAP PO (14:27)
[2017-05-01] MEDS ORDERED: HYDR-3363 PO (14:27)
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
== END 2017-05-01 15:00 | disposition home or self-care (01) | DRG 753 ==
LOC: M ED 20:19 → M ED INP 22:43 → M PSY 23:20
PROVIDERS: ADMIT Psychiatry & Neurology Psychiatry; ATTEND Psychiatry & Neurology Psychiatry
DX: F31.32 Bipolar disorder, current episode depressed, moderate (principal); D72.829 Elevated white blood cell count, unspecified; F90.9 Attention-deficit hyperactivity disorder, unspecified type; F11.90 Opioid use, unspecified, uncomplicated; F12.90 Cannabis use, unspecified, uncomplicated; F15.90 Other stimulant use, unspecified, uncomplicated; F17.200 Nicotine dependence, unspecified, uncomplicated; M25.561 Pain in right knee; Z79.899 Other long term (current) drug therapy

== ENCOUNTER 2017-07-03 11:54 | Inpatient (IN) | payer BC ==
[2017-07-03 12:32] LABS: MEAN CORPUSCULAR HEMOGLOBIN 29.6 pg (27.0-33.0); MEAN CORPUSCULAR HGB CONC 33.5 g/dl (32.0-36.5); MEAN CORPUSCULAR VOLUME 88.3 fl (80.0-96.0); PLATELET COUNT, AUTOMATED 423 10^3/uL (150-450); WHITE BLOOD COUNT 17.5 10^3/uL (4.0-10.0)
[2017-07-03 13:03] LABS: ALBUMIN 3.9 GM/DL (3.2-5.2); ALKALINE PHOSPHATASE 105 U/L (45-117); ALT/SGPT 32 U/L (12-78); ANION GAP 9 MEQ/L (8-16); AST/SGOT 17 U/L (7-37); BILIRUBIN,DIRECT < 0.1 MG/DL (0.0-0.2); BILIRUBIN,TOTAL 0.2 MG/DL (0.2-1.0); BLOOD UREA NITROGEN 13 MG/DL (7-18); CALCIUM LEVEL 9.6 MG/DL (8.5-10.1); CARBON DIOXIDE LEVEL 27 MEQ/L (21-32); CHLORIDE LEVEL 103 MEQ/L (98-107); CREATININE FOR GFR 0.77 MG/DL (0.55-1.02); GLOMERULAR FILTRATION RATE > 60.0 (>51); GLUCOSE, FASTING 81 MG/DL (70-105); POTASSIUM SERUM 4.2 MEQ/L (3.5-5.1); SODIUM LEVEL 139 MEQ/L (136-145); TOTAL PROTEIN 7.8 GM/DL (6.4-8.2)
[2017-07-03 14:00] LABS: METHADONE URINE NEGATIVE (NEGATIVE)
[2017-07-03] MEDS ORDERED: MOM 30ML SUSPENSION UDC PO (18:00)
[2017-07-03] MEDS: NICOTINE 14 MG/24 HR TRANSDERMAL TD (19:11)
[2017-07-03] MEDS: traZODone 50 MG TAB PO (20:32)
[2017-07-03] MEDS: LORazepam 1 MG TAB PO (20:32)
[2017-07-03] MEDS: OLANZapine ORAL DISINTEGRATING TAB 5MG PO (20:35)
[2017-07-04] MEDS: NICOTINE 14 MG/24 HR TRANSDERMAL TD (08:45)
[2017-07-04] MEDS: LORazepam 1 MG TAB PO ×2 (08:45→20:42)
[2017-07-04 11:23] LABS: CONTROL LINE HCG INT CTR LINE PRESENT
[2017-07-04] MEDS: OLANZapine ORAL DISINTEGRATING TAB 5MG PO ×2 (11:57→20:42)
[2017-07-04] MEDS ORDERED: cloNIDine 0.1 MG TAB PO (13:00)
[2017-07-04] MEDS ORDERED: PINK BISMUTH SUSP 524MG/30ML ORAL SYRINGE PO (13:00)
[2017-07-04] MEDS: CitaloPRAM (CeleXA) 20 MG TAB PO (13:43)
[2017-07-04] MEDS: traZODone 50 MG TAB PO (20:42)
[2017-07-05 07:51] LABS: MEAN CORPUSCULAR HEMOGLOBIN 29.5 pg (27.0-33.0); MEAN CORPUSCULAR HGB CONC 33.4 g/dl (32.0-36.5); MEAN CORPUSCULAR VOLUME 88.4 fl (80.0-96.0); PLATELET COUNT, AUTOMATED 344 10^3/uL (150-450); WHITE BLOOD COUNT 9.5 10^3/uL (4.0-10.0)
[2017-07-05] MEDS: NICOTINE 14 MG/24 HR TRANSDERMAL TD (08:35)
[2017-07-05] MEDS: LORazepam 1 MG TAB PO ×2 (08:35→20:12)
[2017-07-05] MEDS: CitaloPRAM (CeleXA) 20 MG TAB PO (08:35)
[2017-07-05] MEDS: cloNIDine 0.1 MG TAB PO ×2 (15:02→20:12)
[2017-07-05] MEDS: BUPRENORPHINE/NALOXONE 2-0.5MG SUBLINGUAL TABLET(SUBOXONE) SL (15:02)
[2017-07-05] MEDS: OLANZapine ORAL DISINTEGRATING TAB 5MG PO (20:11)
[2017-07-05] MEDS: traZODone 50 MG TAB PO (20:11)
[2017-07-06] MEDS: CitaloPRAM (CeleXA) 10 MG TABLET PO (09:26)
[2017-07-06] MEDS: BUPRENORPHINE/NALOXONE 2-0.5MG SUBLINGUAL TABLET(SUBOXONE) SL (09:26)
[2017-07-06] MEDS: NICOTINE 14 MG/24 HR TRANSDERMAL TD (09:27)
[2017-07-06] MEDS: cloNIDine 0.1 MG TAB PO ×3 (09:27→20:05)
[2017-07-06] MEDS: ACETAMINOPHEN TAB 650MG DOSE (2X325MG) PO (09:28)
[2017-07-06] MEDS: LORazepam 1 MG TAB PO (20:05)
[2017-07-06] MEDS: traZODone 50 MG TAB PO (20:05)
[2017-07-07] MEDS: cloNIDine 0.1 MG TAB PO ×3 (09:20→20:15)
[2017-07-07] MEDS: CitaloPRAM (CeleXA) 10 MG TABLET PO (09:20)
[2017-07-07] MEDS: BUPRENORPHINE/NALOXONE 2-0.5MG SUBLINGUAL TABLET(SUBOXONE) SL (09:20)
[2017-07-07] MEDS: NICOTINE 14 MG/24 HR TRANSDERMAL TD (09:21)
[2017-07-07] MEDS: traZODone 50 MG TAB PO (20:15)
[2017-07-07] MEDS: LORazepam 1 MG TAB PO (20:15)
[2017-07-08] MEDS: CitaloPRAM (CeleXA) 10 MG TABLET PO (08:42)
[2017-07-08] MEDS: BUPRENORPHINE/NALOXONE 2-0.5MG SUBLINGUAL TABLET(SUBOXONE) SL (08:42)
[2017-07-08] MEDS: NICOTINE 14 MG/24 HR TRANSDERMAL TD (08:42)
[2017-07-08] MEDS: cloNIDine 0.1 MG TAB PO ×3 (08:44→21:15)
[2017-07-08] MEDS: LORazepam 1 MG TAB PO ×2 (15:18→21:14)
[2017-07-08] MEDS: traZODone 50 MG TAB PO (21:14)
[2017-07-09] MEDS: NICOTINE 14 MG/24 HR TRANSDERMAL TD (08:03)
[2017-07-09] MEDS: CitaloPRAM (CeleXA) 10 MG TABLET PO (08:03)
[2017-07-09] MEDS: BUPRENORPHINE/NALOXONE 2-0.5MG SUBLINGUAL TABLET(SUBOXONE) SL (08:03)
[2017-07-09] MEDS: cloNIDine 0.1 MG TAB PO ×3 (08:04→20:09)
[2017-07-09] MEDS: LORazepam 1 MG TAB PO ×2 (12:31→20:08)
[2017-07-09] MEDS: ACETAMINOPHEN TAB 650MG DOSE (2X325MG) PO (12:32)
[2017-07-09] MEDS: ONDANSETRON 4 MG ORAL DISINTEGRATING TAB (S0181) PO (13:00)
[2017-07-09] MEDS ORDERED: PINK BISMUTH SUSP 524MG/30ML ORAL SYRINGE PO (13:00)
[2017-07-09] MEDS: METHADONE 10 MG TAB (S0109) PO ×2 (15:41→20:08)
[2017-07-09] MEDS: traZODone 50 MG TAB PO (20:08)
[2017-07-10] MEDS: ACETAMINOPHEN TAB 650MG DOSE (2X325MG) PO ×2 (05:16→08:33)
[2017-07-10] MEDS: ONDANSETRON 4 MG ORAL DISINTEGRATING TAB (S0181) PO ×2 (05:16→13:15)
[2017-07-10] MEDS: MAALOX 30 ML SUSP *UDC PO (08:32)
[2017-07-10] MEDS: METHADONE 10 MG TAB (S0109) PO ×3 (09:21→21:11)
[2017-07-10] MEDS: cloNIDine 0.1 MG TAB PO ×3 (09:21→21:11)
[2017-07-10] MEDS: NICOTINE 14 MG/24 HR TRANSDERMAL TD (09:21)
[2017-07-10] MEDS: CitaloPRAM (CeleXA) 10 MG TABLET PO (09:21)
[2017-07-10] MEDS: traZODone 50 MG TAB PO (21:11)
[2017-07-11] MEDS: ACETAMINOPHEN TAB 650MG DOSE (2X325MG) PO ×2 (00:25→16:15)
[2017-07-11] MEDS: ONDANSETRON 4 MG ORAL DISINTEGRATING TAB (S0181) PO ×3 (00:25→16:15)
[2017-07-11] MEDS: LORazepam 1 MG TAB PO ×2 (08:43→16:15)
[2017-07-11] MEDS: CitaloPRAM (CeleXA) 10 MG TABLET PO (08:44)
[2017-07-11] MEDS: cloNIDine 0.1 MG TAB PO (08:49)
[2017-07-11] MEDS: METHADONE 10 MG TAB (S0109) PO (08:49)
[2017-07-11] MEDS: NICOTINE 14 MG/24 HR TRANSDERMAL TD (08:49)
[2017-07-11] MEDS ORDERED: CEPACOL LOZENGE PO (15:45)
[2017-07-11 17:09] LABS: BASO % 0.2 % (0.0-1.0); IMMATURE GRANULOCYTE # 0.2 10^3/uL (0-0); IMMATURE GRANULOCYTE % 1.2 % (0-0); LYMPH # 2.1 10^3/uL (1.5-4.5); LYMPH % 17.1 % (24.0-44.0); MEAN CORPUSCULAR HEMOGLOBIN 30.1 pg (27.0-33.0); MEAN CORPUSCULAR HGB CONC 32.7 g/dl (32.0-36.5); MONO # 0.5 10^3/uL (0.0-0.8); MONO % 4.1 % (0.0-5.0); NEUTROPHILS # 9.5 10^3/uL (1.8-7.7); NEUTROPHILS % 77.4 % (36.0-66.0); PLATELET COUNT, AUTOMATED 376 10^3/uL (150-450); RED CELL DISTRIBUTION WIDTH 13.8 % (11.5-14.5); WHITE BLOOD COUNT 12.3 10^3/uL (4.0-10.0)
[2017-07-11 17:28] LABS: ALBUMIN 3.7 GM/DL (3.2-5.2); ALKALINE PHOSPHATASE 78 U/L (45-117); ALT/SGPT 33 U/L (12-78); ANION GAP 7 MEQ/L (8-16); AST/SGOT 15 U/L (7-37); BILIRUBIN,TOTAL 0.2 MG/DL (0.2-1.0); BLOOD UREA NITROGEN 18 MG/DL (7-18); CALCIUM LEVEL 8.9 MG/DL (8.5-10.1); CARBON DIOXIDE LEVEL 34 MEQ/L (21-32); CHLORIDE LEVEL 97 MEQ/L (98-107); CREATININE FOR GFR 0.88 MG/DL (0.55-1.02); GLOMERULAR FILTRATION RATE > 60.0 (>51); GLUCOSE, FASTING 127 MG/DL (70-105); POTASSIUM SERUM 4.8 MEQ/L (3.5-5.1); SODIUM LEVEL 138 MEQ/L (136-145); TOTAL PROTEIN 7.4 GM/DL (6.4-8.2)
[2017-07-11] MEDS ORDERED: LevoFLOXacin 750 MG TABLET PO (20:30)
[2017-07-11] MEDS ORDERED: METHADONE 10 MG TAB (S0109) PO (21:00)
[2017-07-11] MEDS ORDERED: cloNIDine 0.1 MG TAB PO (21:00)
[2017-07-12] MEDS ORDERED: LevoFLOXacin 750 MG TABLET PO (06:00)
[2017-07-12] MEDS ORDERED: METHADONE 10 MG TAB (S0109) PO (09:00)
[2017-07-13] MEDS ORDERED: METHADONE 5 MG TAB (S0109) PO (09:00)
== END 2017-07-11 22:15 | disposition short-term general hospital (02) | DRG 753 ==
LOC: M ED 11:54 → M ED INP 16:05 → M PSY 16:30
DX: F31.9 Bipolar disorder, unspecified (principal); D72.829 Elevated white blood cell count, unspecified; Z79.899 Other long term (current) drug therapy; F11.90 Opioid use, unspecified, uncomplicated; F41.9 Anxiety disorder, unspecified; F17.200 Nicotine dependence, unspecified, uncomplicated

== ENCOUNTER 2017-07-11 21:56 | Inpatient (IN) | payer BC ==
[~2017-07-11] VITALS: Ht 172.7 cm; Wt 89.1 kg
[~2017-07-11 21:56] MED LIST changes: +ARIP1TAB4 PO; +BENZ-52 PO; +BUSP10TA PO; +ESTRTAB6 PO; +HYDR-3363 PO; +HYDR-3713 PO; +METHY10TA PO; +MINI1CAP PO; +MIRT15TA3 PO; +PRIS1TAB PO; +PRIS50TA PO; +PROP10TAB PO; +QUET1TAB7 PO; +SERT-138 PO; +TRAZO50TA PO
[2017-07-11] MEDS ORDERED: IPRATROPIUM 0.5MG/ALBUTEROL 2.5MG INH SOL UD 3ML (DUONEB)(J7620) NEB PRN (22:15)
[2017-07-11 22:30] VITALS: BP 107/59
--- NOTE | 2017-07-11 22:56 | HPEPDOC ---
General Date of Admission 07-11-17 Chief Complaint The patient is a 52-year-old female admitted with a reason for visit of Acute Respiratory Distress. Source: Patient, Old records Exam Limitations: Other (PT SEEMS ALTERED ON EXAM) Timing/Duration: Momentarily Severity: Severe Associated Symptoms: Shortness of breath History of Present Illness PATIENT DOES NOT HAVE A PCP. Ms. Simpson is a 52 y/o female with past medical history of depression, bipolar disease, anxiety, history of SI and overdose, history of shingles and chronic leukocytosis who was recently admitted to [facility] on 2016 under the care of Dr. Lindquist for depression. The pt was found by nursing staff around 2200 to be unarousable, as per nursing, she did wake up and seemed very altered , unsure of her surroundings and unsure where she was, she also complained of acute onset SOB. Her Oxygen saturation was in the 60's with bedside reading. A rapid assessment was called. Upon examination, the pt was sitting in bed in no apparent distress, was non-labored in breathing pattern. She did seem a bit confused but was alert to person and place, and thinking it was mid day rather than night. She complained of some SOB that had just occurred. She denied history of lung disease or SOB in the past, she denied chest pain or n/v nor dizziness. She was given supplemental oxygen and her saturation slowly karen to > 90% with her improvement in her SOB. Her pupils were pinpoint b/l and very minimally responsive to light, she had diminished lung sounds throughout. She was transported to PCU for further evaluation. Apparently after speaking to psychiatry she did have a recent overdose of oxycodone. No recent falls nor LOC. Much of the HPI and past medical history comes from past medical records as pt. seemed confused on questioning and very anxious that she was going to soon. Home Medications Scheduled ([place] Mood & Memory) 1 Tab Tab, 1 TAB PO DAILY, (Reported) Desvenlafaxine Succinate Monoh (Pristiq) 25 Mg Tab, 25 MG PO DAILY, (Reported) Mirtazapine (Mirtazapine) 15 Mg Tab, 15 MG PO QHS, (Reported) Allergies Coded Allergies: No Known Allergies (Unverified , 04/24/13) Past Medical History Medical History PER HPI Surgical History hysterectomy and oophorectomy Family History mother has bipolar disease and hx of breast cancer father has hx of lung cancer no unexpected deaths in the family due to medical causes Social History * Smoker: current smoker (1 pp week from records, since she was a teenager) Alcohol: Denies Drugs: marijuana, other (apparently from records, pt has o/d on opioiods before and uses marijuana regularly, at least 2x a week. She denies hx of IVDU.) lives at home with her and grandchild near [facility]. history of SI history of O/D smokes one pack per week since she was a teen denies alcohol use opioid use/abuse/o/d and marijuana use regularly recent oxycodone o/d Review of Symptoms Constitutional: Reports: Other (most of ROS was unobtainable as pt seemed confused on questioning and could not illicit answers ) Pulmonary: Reports: Dyspnea, Cough Cardiovascular: Denies: Chest Pain, Lt Headedness Psych: Reports: Depression, Denies: Mood Normal (pt seems confused on exam) Physical Examination General Exam: Positive: Alert, Cooperative, Mild Distress (pt seems confused, not labored in breathing, no conversational dyspnea) Eye Exam: Positive: Conjunctiva & lids normal, Negative: PERRLA (pinpoint, minimal responsiveness to light +2 b/l) Neck Exam: Positive: Supple Chest Exam: Positive: Clear to auscultation, Diminished (throughout), Negative: Rhonchi, Wheezing Heart Exam: Positive: Rate Normal, Normal S1, Normal S2, Negative: Tachycardic Abdomen Exam: Positive: Soft Extremity Exam: Negative: Edema Neuro Exam: Positive: Normal Speech Psych Exam: Positive: Anxiety, Oriented x 3 (pt orientated to person and place , thought it was mid day rather than night time), Negative: Mental status NL (seems confused on exam) Vital Signs bp 122/65 temp 97.4 RR 18 HR 89 O2 sat 96% on 4 L NC Assessment/Plan This is a 52 y/o female who was admitted to [facility] on July 03, 2017 for depression and rapid assessment was called on 2016 at 2200 for AMS with SOB low oxygen saturation. 1. Acute AMS - could be secondary to recent oxycodone o/d - Apparently the pt was unarousable moments before rapid assessment was called, by the time provider was in the room she was sitting upright in bed and responding to questioning by nursing staff - bedside POC glucose was 203 -pt had initial reading of 60's with her oxygenation saturation, she improved with NC 4 L to >90% with improvement in symptoms -will transfer to PCU, continuous pulse ox and telemetry monitoring - will check stat head ct w/o contrast to r/o bleed -stat CXR, ammonia, ABG, CBC w/diff and BMP ordered, along with CRP and ESR, stat EKG and cardiac markers pending -will hold all medications tonight that could cause respiratory decline and depression in mentation 2. Acute SOB --could be secondary to underlying pneumonia, recent CXR showed b/l infiltrates -upon exam, pt had initial reading of 60's with her oxygenation saturation, she improved within minutes with NC 4 L to >90% with improvement in symptoms -pt has no history of diagnosed lung disease, pt is afebrile and without a white count but her most recent CXR did demonstrate b/l infiltrates --will begin pt on rocephin and azithromycin abx therapy for possible pneumonia afebrile, CBC pending, will begin azithromycin and rocephin antibiotic therapy, pt does carry hx of chronic leukocytosis repeat cxr stat ekg pending duoneb therapy oxygen therapy titrate >90% no history of diagnosed lung disease, pt does have tobacco history stat abg pending 3. history of bipolar and depression -will hold medications that could cause her mentation or respiratory status to depress -pt will have to be medically cleared before transfer back to [facility] -c/w psych medications as indicated in psychiatrys most recent note., will hold on methadone and ativan, she had a poor reaction to methadone apparently according to note 4. hx of chronic leukocytosis -pt is afebrile, CBC pending for white count -infiltrates noted on past CXR -pt will likely benefit from outpt hematology work up -perphrial smear done April 2017 negative for blasts 5. hx of SI -pt will have a 1:1 sitter -will need to be medically cleared and then can be transferred back to [facility] -will c/w psychiatric medications as outlined above, d/c methadone and ativan -clonidine and zyprexa for agitation/withdrawal sx 6. dvt prophylaxis scd teds lovenox therapy Plan / VTE VTE Prophylaxis Ordered?: Yes GME ATTESTATION GME ATTESTATION My faculty preceptor for this patient encounter was physically present during the encounter and was fully available. All aspects of the patient interview, examination, medical decision making process, and medical care plan development were reviewed and approved by the faculty preceptor. The faculty preceptor is aware and concurs with the plan as stated in the body of this note and will attest to such by his/her cosignature. JOSE E PETERSON DO Jul 11, 2017 22:56
[2017-07-11 23:23] LABS: BASO % 0.2 % (0.0-1.0); IMMATURE GRANULOCYTE % 1.7 % (0-0); LYMPH # 1.7 10^3/uL (1.5-4.5); LYMPH % 11.2 % (24.0-44.0); MEAN CORPUSCULAR HEMOGLOBIN 29.4 pg (27.0-33.0); MEAN CORPUSCULAR HGB CONC 31.9 g/dl (32.0-36.5); MEAN CORPUSCULAR VOLUME 92.3 fl (80.0-96.0); MONO % 6.4 % (0.0-5.0); NEUTROPHILS # 12.1 10^3/uL (1.8-7.7); NEUTROPHILS % 80.5 % (36.0-66.0); PLATELET COUNT, AUTOMATED 348 10^3/uL (150-450); RED CELL DISTRIBUTION WIDTH 13.9 % (11.5-14.5)
--- NOTE | 2017-07-11 23:25 | MHIPNPDOC ---
[facility] Progress Note Progress Note DATE OF SERVICE: 07/11/17 HISTORY: Mrs. Kelly Simpson is a 52 year old female with history of Bipolar Disorder, current episode, depressed. She was admitted to [facility] because patient had deteriorated and had suicidal thoughts. She told this teletypewriter operator she had been consuming 10-12 OxyContin tablets per day before coing to the hospital. She said the last day she used them was two days before coming into the Hospital. She reported numerous stress and psychosocial factors and she said she had started using opioids as a way of coping with stress and depression. She was started on Abilify and Citalopram, low dose, 10 miligrams because she has a history ob bipolar disorder, therefore she can't receive high doses of antidepressants unless she has been stabilized with a mood stabilizer like Abilify. She received Suboxone because she was having withdrawals but I decided to discontinue Suboxone and started her on Methadone, 30 mgs, today she was supposed to receive 20, tomorrow 10 and 5 on Sunday. When I started on these medications she was shaky, was sweating but was afebrile. She was flushing , had goose bumps, crampy abdominal pain, nausea and had one episode of diarrhea yesterday. I gave her Zofran PRN for nausea. Today, she looked ill, she reported sore throat, headache, greenish/nixon sputum, and she had ran a fever in the morning. She kept complaining of nausea and she said she was avoiding to drink water because if she drank it, she felt she was going to throw up. This teletypewriter operator observed her tongue was white and I thought it could be thrush, I checked her throat and it was inflamed but had no thrush. Ordered a CBC with differential, a CMP and a Chest x ray PA and lateral. These orders were put in around 4:40 in the afternoon. The results showed patchy infiltrates in both lungs plus what it seemed old atelectasis, her WBC was rising and she had a 77% Neutrophil count. I ordered levofloxacin and she was supposed to take her first tablet tonight. I thought she could have pneumonia because her Chest x rays show bilateral patchy infiltrates and she had an elevated WBC. She was supposed to continue on a tapering dose of Methadone but those will have to be put on hold. She was indicated to take Ativan only if she was extremely anxious and she only took one or two milligrams per day.Then, it should be discontinued. If she is able to tolerate PO, she should continue taking Abilify 5mgs PO BID and Citalopram 10 mgs PO QD. Thank you for taking care of the patient. I will follow her up. Current Medications Current Medications Albuterol/ Ipratropium (Duoneb (Ipr 0.5mg/Alb 2.5mg)) 3 ml Q4HP PRN NEB SOB/ WHEEZING; Start 07/11/17 at 22:15; Stop 08/10/17 at 22:14 Azithromycin 500 mg/IV Miscellaneous Supplies 1 each/ Dextrose 255 ml @ 255 mls /hr Q24H IV ; Start 07/11/17 at 23:00; Stop 07/18/17 at 22:59 Ceftriaxone Sodium 1 gm/IV Miscellaneous Supplies 10 ml @ 20 mls/hr Q12H IV ; Start 07/12/17 at 00:00; Stop 07/19/17 at 00:00 Allergies Coded Allergies: No Known Allergies (Unverified , 04/24/13) MELINDA FAGAN MD Jul 11, 2017 23:25
[2017-07-11 23:45] LABS: ANION GAP 5 MEQ/L (8-16); BLOOD UREA NITROGEN 20 MG/DL (7-18); CALCIUM LEVEL 8.4 MG/DL (8.5-10.1); CARBON DIOXIDE LEVEL 37 MEQ/L (21-32); CHLORIDE LEVEL 95 MEQ/L (98-107); CREATININE FOR GFR 0.89 MG/DL (0.55-1.02); GLOMERULAR FILTRATION RATE > 60.0 (>51); GLUCOSE, FASTING 126 MG/DL (70-105); POTASSIUM SERUM 4.3 MEQ/L (3.5-5.1); SODIUM LEVEL 137 MEQ/L (136-145)
[2017-07-12] VITALS (23 sets, daily range): BP systolic 94–151; BP diastolic 54–81; O2SAT 85–98
--- NOTE | 2017-07-12 00:10 | REPUSA ---
CLINICAL HISTORY: AMS TECHNIQUE: Multiple axial brain CT scan sections were obtained from base to vertex without contrast a dministration. COMMENTS: Prior studies are not available for comparison. The study shows normal configuration of sella turcica. There are no intra or extra-axial collections. There is no mass effect or midline shift. There is no evidence of hematoma formation. No hydrocephal us is present. No abnormal calcifications are noted. No significant abnormalities are seen either in the posterior fossa or supratentorial compartment. There is mucosal thickening and partial opacification involving bilateral ethmoid, sphenoid and maxil alivia sinuses consistent with chronic sinusitis. IMPRESSION: Sinusitis as above. No evidence of acute intracranial pathology. Thank you for your kind referral of this patient.
--- NOTE | 2017-07-12 00:10 | REPUSA ---
CLINICAL HISTORY: AMS COMMENTS: A single frontal view of the chest was obtained without prior studies for comparison. The cardiac silhouette is within normal limits. There is no evidence of hilar enlargement. There is no evidence of a pulmonary nodule, infiltrate or atelectasis. There is no pleural effusion. No bony abnormalities are seen. IMPRESSION: Unremarkable chest. Thank you for your kind referral of this patient.
[2017-07-12] MEDS: AZITHROMYCIN INJ 500 MG, VIAL MATE ADAPTER 1 EACH in D5W 250 ML IV SCH ×2 (00:33→23:09)
[2017-07-12] MEDS: ONDANSETRON 4MG/2ML VIAL (J2405) IV PRN ×3 (00:33→15:46)
[2017-07-12 00:42] LABS: ERYTHROCYTE SEDIMENTATION RATE 11 mm/hr (0-30)
[2017-07-12 01:38] LABS: ABG BASE EXCESS 1.7 (-2.0-2.0); ABG PARTIAL PRESSURE CO2 64.5 mmHg (35.0-45.0); ABG PARTIAL PRESSURE O2 62.3 mmHg (75.0-100.0); ABG STANDARD HCO3 25.8 MEQ/L (22.0-26.0); ABG pH (ARTERIAL) 7.285 UNITS (7.350-7.450)
[2017-07-12] MEDS: CEFTRIAXONE SOD 1 GM in APPROPRIATE DILUENT 1 EA IV SCH ×2 (01:59→11:49)
[2017-07-12] MEDS ORDERED: IBUPROFEN 400 MG TAB PO ONE (02:00)
[2017-07-12] MEDS ORDERED: LORazepam 1 MG TAB PO PRN (04:30)
[2017-07-12] MEDS ORDERED: cloNIDine 0.1 MG TAB PO PRN (04:30)
[2017-07-12] MEDS ORDERED: ACETAMINOPHEN TAB 650MG DOSE (2X325MG) PO PRN (04:30)
[2017-07-12] MEDS ORDERED: MOM 30ML SUSPENSION UDC PO PRN (04:30)
[2017-07-12] MEDS ORDERED: OLANZapine 5 MG TAB PO PRN (04:30)
[2017-07-12] MEDS ORDERED: PINK BISMUTH SUSP 524MG/30ML ORAL SYRINGE PO PRN (04:30)
[2017-07-12] MEDS ORDERED: ONDANSETRON 4 MG TAB (S0181) PO PRN (04:30)
[2017-07-12] MEDS ORDERED: MAALOX 30 ML SUSP *UDC PO PRN (04:30)
[2017-07-12] MEDS ORDERED: traZODone 50 MG TAB PO PRN (04:30)
[2017-07-12 05:08] LABS: BASO % 0.2 % (0.0-1.0); IMMATURE GRANULOCYTE % 1.7 % (0-0); LYMPH # 2.3 10^3/uL (1.5-4.5); LYMPH % 17.9 % (24.0-44.0); MEAN CORPUSCULAR HEMOGLOBIN 29.8 pg (27.0-33.0); MEAN CORPUSCULAR HGB CONC 32.1 g/dl (32.0-36.5); MONO # 1.1 10^3/uL (0.0-0.8); MONO % 8.5 % (0.0-5.0); NEUTROPHILS # 9.1 10^3/uL (1.8-7.7); NEUTROPHILS % 71.7 % (36.0-66.0); PLATELET COUNT, AUTOMATED 338 10^3/uL (150-450); RED CELL DISTRIBUTION WIDTH 13.9 % (11.5-14.5); WHITE BLOOD COUNT 12.7 10^3/uL (4.0-10.0)
[2017-07-12 05:29] LABS: ANION GAP 5 MEQ/L (8-16); BLOOD UREA NITROGEN 18 MG/DL (7-18); CALCIUM LEVEL 8.2 MG/DL (8.5-10.1); CARBON DIOXIDE LEVEL 35 MEQ/L (21-32); CHLORIDE LEVEL 97 MEQ/L (98-107); GLOMERULAR FILTRATION RATE > 60.0 (>51); GLUCOSE, FASTING 115 MG/DL (70-105); POTASSIUM SERUM 4.1 MEQ/L (3.5-5.1); SODIUM LEVEL 137 MEQ/L (136-145)
[2017-07-12 05:55] LABS: ALBUMIN 3.5 GM/DL (3.2-5.2); ALBUMIN/GLOBULIN RATIO 0.92 (1.00-1.93); ALKALINE PHOSPHATASE 68 U/L (45-117); ALT/SGPT 40 U/L (12-78); AST/SGOT 22 U/L (7-37); BILIRUBIN,DIRECT < 0.1 MG/DL (0.0-0.2); BILIRUBIN,TOTAL 0.1 MG/DL (0.2-1.0); TOTAL PROTEIN 7.3 GM/DL (6.4-8.2)
[2017-07-12 06:14] LABS: ABG BASE EXCESS 7.5 (-2.0-2.0); ABG HCO3 38.9 MEQ/L (22.0-26.0); ABG PARTIAL PRESSURE O2 65.8 mmHg (75.0-100.0); ABG STANDARD HCO3 31.1 MEQ/L (22.0-26.0); ABG TOTAL CO2 41.9 MEQ/L (22.0-29.0)
[2017-07-12 06:17] LABS: ABG PARTIAL PRESSURE CO2 97.9 mmHg (35.0-45.0); ABG pH (ARTERIAL) 7.217 UNITS (7.350-7.450)
[2017-07-12] MEDS ORDERED: NALOXONE INJ 0.4 MG/1 ML VIAL (J2310) IV STA (06:36)
[2017-07-12 08:44] LABS: ABG BASE EXCESS 5.3 (-2.0-2.0); ABG HCO3 33.6 MEQ/L (22.0-26.0); ABG PARTIAL PRESSURE O2 66.8 mmHg (75.0-100.0); ABG STANDARD HCO3 29.2 MEQ/L (22.0-26.0); ABG TOTAL CO2 35.6 MEQ/L (22.0-29.0); ABG pH (ARTERIAL) 7.317 UNITS (7.350-7.450)
[2017-07-12 08:47] LABS: ABG PARTIAL PRESSURE CO2 67.1 mmHg (35.0-45.0)
[2017-07-12] MEDS ORDERED: cloNIDine HCL 0.1 MG/24 HR PATCH TOP SCH (09:00)
[2017-07-12] MEDS ORDERED: cloNIDine 0.1 MG TAB PO SCH (09:00)
[2017-07-12] MEDS ORDERED: METHADONE 10 MG TAB (S0109) PO SCH (09:00)
[2017-07-12] MEDS ORDERED: CitaloPRAM (CeleXA) 20 MG TAB PO SCH (09:00)
--- NOTE | 2017-07-12 09:06 | ECGEPIP ---
Stationary ECG Study [facility] Test Date: 2017-07-12 Pat Name: PEG HUANG Department: Room: [place] [address] Gender: F County Director Welfare: SHELBY : 1965 Requested By: JOSE E PETERSON Order Number: [id number] Reading MD: Fahad Clemente Measurements Intervals [place] Rate: 87 P: 37 MT: 147 QRS: 0 QRSD: 84 T: 1 QT: 373 QTc: 449 Interpretive Statements Normal sinus rhythm. Somewhat low precordial voltage. Nonspecific ST/T-wave abnormalities Slower rate, but otherwise unchanged from 07/04/17 Electronically Signed On 07-12-2017 9:06:16 EST by Fahad Clemente
[2017-07-12] MEDS: NICOTINE 14 MG/24 HR TRANSDERMAL TD SCH (09:30)
[2017-07-12] MEDS: BUPRENORPHINE/NALOXONE 2-0.5MG SUBLINGUAL TABLET(SUBOXONE) SL SCH (09:31)
[2017-07-12] MEDS: CitaloPRAM (CeleXA) 10 MG TABLET PO SCH (10:35)
[2017-07-12] MEDS: methylPREDNISolone INJ 40 MG/1 ML VIAL (J2920) IV SCH (14:05)
--- NOTE | 2017-07-12 17:09 | IPNPDOC ---
Text Note Date of Service The patient was seen on 07/12/17. NOTE Patient with worsening hypercarbia overnight. Reported sob, cough, n/v. Denied CP. Gen NAD obese HEENT NC/AT Pul coarse breath sound, no wheeze cardiac rrr, nl s1s2 abd sobt nt nd +BS EXt, no c/c/e 52 y/o female past medical history of depression, bipolar disease, anxiety, history of SI and overdose, history of shingles and chronic leukocytosis who was admitted to [facility] on July 03, 2017 for depression and rapid assessment was called on 2016 at 2200 for AMS with SOB low oxygen saturation. 1. Acute AMS - could be secondary to recent oxycodone o/d - Apparently the pt was unarousable moments before rapid assessment was called, by the time provider was in the room she was sitting upright in bed and responding to questioning by nursing staff - bedside POC glucose was 203 -pt had initial reading of 60's with her oxygenation saturation, she improved with NC 4 L to >90% with improvement in symptoms -will transfer to PCU, continuous pulse ox and telemetry monitoring - ct head appreciated -returned to baseline, avoid opiods or Narcotics -returned to baseline 2. Acute hypoxic hypercarbic respiratory failure --could be secondary to underlying pneumonia vs aspiriation pna, recent CXR showed b/l infiltrates -O2 supplement likely also with COPD given low smoking history avoid benzo and narcotics abd repeat showed improvement solumedrol rocephin and azithromycin if not improved consider anaerobic coverage for aspiration respiratory panel and culture neb CRP, cultures, consider narcan drip if patient lethargic- Note Methadone is long acting 3. history of bipolar and depression -will hold medications that could cause her mentation or respiratory status to depress -c/w psych medications as indicated in psychiatrys most recent note., will hold on methadone and ativan -Patient should not be on opiods and benzo in the future, given the current complication 4. hx of chronic leukocytosis -pt is afebrile, CBC pending for white count -infiltrates noted on past CXR -f/u cultures, improved -perphrial smear done April 2017 negative for blasts 5. hx of SI -pt will have a 1:1 sitter -will need to be medically cleared and then can be transferred back to [facility] -will c/w psychiatric medications as outlined above, d/c methadone and ativan -clonidine and zyprexa for agitation/withdrawal sx, zofran 6. dvt prophylaxis scd teds heparin sq Dispo pending clinical improvement. wean O2. repeat abg shows resolution of hypercarbia, smoke cessation VS,Fishbone, I+O VS, Fishbone, I+O Laboratory Tests 07/11/17 23:11 Red Blood Count 4.39, Mean Corpuscular Volume 92.3, Mean Corpuscular Hemoglobin 29.4, Mean Corpuscular Hemoglobin Concent 31.9 L, Red Cell Distribution Width 13.9, Neutrophils (%) (Auto) 80.5 H, Lymphocytes (%) (Auto) 11.2 L, Monocytes (% ) (Auto) 6.4 H, Eosinophils (%) (Auto) 0.0, Basophils (%) (Auto) 0.2, Neutrophils # (Auto) 12.1 H, Lymphocytes # (Auto) 1.7, Monocytes # (Auto) 1.0 H , Eosinophils # (Auto) 0.0, Basophils # (Auto) 0.0, Calcium Level 8.4 L, Total Creatine Kinase 64 07/12/17 04:57 Red Blood Count 4.29, Mean Corpuscular Volume 93.0, Mean Corpuscular Hemoglobin 29.8, Mean Corpuscular Hemoglobin Concent 32.1, Red Cell Distribution Width 13.9 , Neutrophils (%) (Auto) 71.7 H, Lymphocytes (%) (Auto) 17.9 L, Monocytes (%) ( Auto) 8.5 H, Eosinophils (%) (Auto) 0.0, Basophils (%) (Auto) 0.2, Neutrophils # (Auto) 9.1 H, Lymphocytes # (Auto) 2.3, Monocytes # (Auto) 1.1 H, Eosinophils # (Auto) 0.0, Basophils # (Auto) 0.0, Calcium Level 8.2 L, Total Creatine Kinase 58 Vital Signs Date Time Temp Pulse Resp B/P (MAP) Pulse Ox O2 Delivery O2 Flow Rate FiO2 07/12/17 16:00 96.7 76 14 122/72 (89) 94 Nasal Cannula 4.0 I&O- Last 24 Hours up to 6 AM 07/13/17 06:00 Intake Total 480 ml Output Total 400 ml Balance 80 ml NAM ALMONTE MD Jul 12, 2017 17:09
[2017-07-12] MEDS: HEPARIN SOD (PORCINE) 5000 UNITS/ML VIAL SQ SCH (20:15)
[2017-07-13] VITALS (11 sets, daily range): BP systolic 97–153; BP diastolic 54–76; O2SAT 97–98
[2017-07-13] MEDS: CEFTRIAXONE SOD 1 GM in APPROPRIATE DILUENT 1 EA IV SCH ×2 (00:06→11:36)
[2017-07-13] MEDS: methylPREDNISolone INJ 40 MG/1 ML VIAL (J2920) IV SCH ×2 (01:42→13:43)
[2017-07-13 04:57] LABS: BASO % 0.2 % (0.0-1.0); IMMATURE GRANULOCYTE % 1.1 % (0-0); LYMPH # 1.6 10^3/uL (1.5-4.5); MEAN CORPUSCULAR HEMOGLOBIN 29.8 pg (27.0-33.0); MEAN CORPUSCULAR HGB CONC 32.9 g/dl (32.0-36.5); MEAN CORPUSCULAR VOLUME 90.4 fl (80.0-96.0); MONO # 0.4 10^3/uL (0.0-0.8); MONO % 3.7 % (0.0-5.0); NEUTROPHILS # 9.2 10^3/uL (1.8-7.7); PLATELET COUNT, AUTOMATED 345 10^3/uL (150-450); RED CELL DISTRIBUTION WIDTH 13.3 % (11.5-14.5); WHITE BLOOD COUNT 11.4 10^3/uL (4.0-10.0)
[2017-07-13 05:10] LABS: ANION GAP 5 MEQ/L (8-16); BLOOD UREA NITROGEN 12 MG/DL (7-18); CALCIUM LEVEL 8.7 MG/DL (8.5-10.1); CARBON DIOXIDE LEVEL 37 MEQ/L (21-32); CHLORIDE LEVEL 95 MEQ/L (98-107); CREATININE FOR GFR 0.76 MG/DL (0.55-1.02); GLOMERULAR FILTRATION RATE > 60.0 (>51); GLUCOSE, FASTING 162 MG/DL (70-105); SODIUM LEVEL 137 MEQ/L (136-145)
[2017-07-13] MEDS: BUPRENORPHINE/NALOXONE 2-0.5MG SUBLINGUAL TABLET(SUBOXONE) SL SCH (08:35)
[2017-07-13] MEDS: CitaloPRAM (CeleXA) 10 MG TABLET PO SCH (08:35)
[2017-07-13] MEDS: NICOTINE 14 MG/24 HR TRANSDERMAL TD SCH (08:36)
[2017-07-13] MEDS: HEPARIN SOD (PORCINE) 5000 UNITS/ML VIAL SQ SCH ×2 (08:36→21:00)
[2017-07-13] MEDS ORDERED: METHADONE 5 MG TAB (S0109) PO SCH (09:00)
--- NOTE | 2017-07-13 17:35 | IPNPDOC ---
Text Note Date of Service The patient was seen on 07/13/17. NOTE No acute events overnight. reported improved respiration. nausea vomiting resolved. Denied CP, abd pain, sob. Gen NAD obese HEENT NC/AT Pul coarse breath sound, no wheeze cardiac rrr, nl s1s2 abd sobt nt nd +BS EXt, no c/c/e 52 y/o female past medical history of depression, bipolar disease, anxiety, history of SI and overdose, history of shingles and chronic leukocytosis who was admitted to [facility] on July 03, 2017 for depression and rapid assessment was called on 2016 at 2200 for AMS with SOB low oxygen saturation. 1. Acute AMS, acute encephalopathy - could be secondary to recent oxycodone o/d - Apparently the pt was unarousable moments before rapid assessment was called, by the time provider was in the room she was sitting upright in bed and responding to questioning by nursing staff - bedside POC glucose was 203 -pt had initial reading of 60's with her oxygenation saturation, she improved with NC 4 L to >90% with improvement in symptoms -transfer back to med surg given patient much improved - ct head appreciated -returned to baseline, avoid opiods or Narcotics -returned to baseline 2. Acute hypoxic hypercarbic respiratory failure --could be secondary to underlying pneumonia vs aspiriation pna, recent CXR showed b/l infiltrates -O2 supplement likely also with COPD given long smoking history avoid benzo and narcotics abd repeat showed improvement solumedrol taper rocephin and azithromycin if not improved consider anaerobic coverage for aspiration respiratory panel and culture neb CRP, cultures, 3. history of bipolar and depression -will hold medications that could cause her mentation or respiratory status to depress -c/w psych medications as indicated in psychiatrys most recent note., will hold on methadone and ativan -Patient should not be on opiods and benzo in the future, given the current complication 4. hx of chronic leukocytosis -pt is afebrile, CBC pending for white count -infiltrates noted on past CXR -f/u cultures, improved -perphrial smear done April 2017 negative for blasts 5. hx of SI -pt will have a 1:1 sitter -will need to be medically cleared and then can be transferred back to [facility] -will c/w psychiatric medications as outlined above, d/c methadone and ativan -clonidine and zyprexa for agitation/withdrawal sx, zofran 6. dvt prophylaxis scd teds heparin sq Dispo pending clinical improvement. wean O2. smoke cessation- VS,Fishbone, I+O VS, Fishbone, I+O Laboratory Tests 07/13/17 04:39 Red Blood Count 4.47, Mean Corpuscular Volume 90.4, Mean Corpuscular Hemoglobin 29.8, Mean Corpuscular Hemoglobin Concent 32.9, Red Cell Distribution Width 13.3 , Neutrophils (%) (Auto) 81.0 H, Lymphocytes (%) (Auto) 14.0 L, Monocytes (%) ( Auto) 3.7, Eosinophils (%) (Auto) 0.0, Basophils (%) (Auto) 0.2, Neutrophils # ( Auto) 9.2 H, Lymphocytes # (Auto) 1.6, Monocytes # (Auto) 0.4, Eosinophils # ( Auto) 0.0, Basophils # (Auto) 0.0, Calcium Level 8.7 Vital Signs Date Time Temp Pulse Resp B/P (MAP) Pulse Ox O2 Delivery O2 Flow Rate FiO2 07/13/17 16:00 98.0 71 18 131/76 (94) 95 Nasal Cannula 2.0 I&O- Last 24 Hours up to 6 AM 07/14/17 06:00 Intake Total 980 ml Output Total 450 ml Balance 530 ml NAM ALMONTE MD Jul 13, 2017 17:35
[2017-07-13] MEDS: AZITHROMYCIN INJ 500 MG, VIAL MATE ADAPTER 1 EACH in D5W 250 ML IV SCH (23:51)
[2017-07-14] MEDS: methylPREDNISolone INJ 40 MG/1 ML VIAL (J2920) IV SCH (01:06)
[2017-07-14] MEDS: CEFTRIAXONE SOD 1 GM in APPROPRIATE DILUENT 1 EA IV SCH ×2 (01:07→12:33)
[2017-07-14 06:00] VITALS: BP 108/57
[2017-07-14 06:44] LABS: ANION GAP 7 MEQ/L (8-16); BLOOD UREA NITROGEN 16 MG/DL (7-18); CALCIUM LEVEL 8.7 MG/DL (8.5-10.1); CARBON DIOXIDE LEVEL 35 MEQ/L (21-32); CHLORIDE LEVEL 97 MEQ/L (98-107); CREATININE FOR GFR 0.88 MG/DL (0.55-1.02); GLOMERULAR FILTRATION RATE > 60.0 (>51); GLUCOSE, FASTING 160 MG/DL (70-105); POTASSIUM SERUM 3.6 MEQ/L (3.5-5.1); SODIUM LEVEL 139 MEQ/L (136-145)
[2017-07-14 06:45] LABS: BASO % 0.2 % (0.0-1.0); IMMATURE GRANULOCYTE % 0.9 % (0-0); LYMPH % 14.3 % (24.0-44.0); MEAN CORPUSCULAR HEMOGLOBIN 29.6 pg (27.0-33.0); MEAN CORPUSCULAR VOLUME 89.8 fl (80.0-96.0); MONO # 0.7 10^3/uL (0.0-0.8); MONO % 5.1 % (0.0-5.0); NEUTROPHILS # 11.3 10^3/uL (1.8-7.7); NEUTROPHILS % 79.5 % (36.0-66.0); PLATELET COUNT, AUTOMATED 411 10^3/uL (150-450); RED CELL DISTRIBUTION WIDTH 13.6 % (11.5-14.5); WHITE BLOOD COUNT 14.2 10^3/uL (4.0-10.0)
[2017-07-14] MEDS: HEPARIN SOD (PORCINE) 5000 UNITS/ML VIAL SQ SCH (08:36)
[2017-07-14] MEDS: CitaloPRAM (CeleXA) 10 MG TABLET PO SCH (08:38)
[2017-07-14] MEDS: NICOTINE 14 MG/24 HR TRANSDERMAL TD SCH (08:38)
[2017-07-14] MEDS: BUPRENORPHINE/NALOXONE 2-0.5MG SUBLINGUAL TABLET(SUBOXONE) SL SCH (08:39)
[2017-07-14] MEDS ORDERED: CEFDINIR 300 MG CAP (OMNICEF) PO SCH (09:00)
[2017-07-14] MEDS ORDERED: predniSONE 10 MG TAB PO SCH (09:00)
[2017-07-14 14:00] VITALS: BP 129/73
[2017-07-14] MEDS ORDERED: NICO14PA TD (15:47)
[2017-07-14] MEDS ORDERED: CATA0.1D TOP (15:47)
[2017-07-14] MEDS ORDERED: ONDA4TAB5 PO ×2 (15:47→18:01)
[2017-07-14] MEDS ORDERED: CEFD300CAP PO (15:47)
[2017-07-14] MEDS ORDERED: PRED10TA2 PO (15:47)
--- NOTE | 2017-07-14 16:07 | MHCRPDOC ---
[facility] Consultation Consultation DATE OF CONSULTATION: 07/14/17 CONSULTATION REQUESTED BY: Suki Hong REASON FOR CONSULTATION: Psych admission RELEVANT HISTORY: 52 y/o F, PMH of shingles, chronic leukocytosis, PSH of bipolar d/o, anxiety, history of SA by OD, recently admitted to [facility] 07/03/17 for depression in the context of family stressors, admitted to Medicine for SOB, O2 desaturation to 60s, and subsequent LOC. By the time rapid assessment arrived, pt was sitting in bed in no apparent distress, with non-labored breathing, though confused. She was transported to PCU for further evaluation, admitted then to Medicine floor. Patient was treated with inhalers and prednisone. By 07/14/17, the patient was breathing normally on room air, O2 sats in the mid 90s, and medically cleared by the Medicine team. Psych was consulted for a transfer back to the Psych unit. Upon examination, the patient reports OK mood, denies SI intent and plan. Was able to clearly and reasonable communicate with this provider without any signs of delirium. Patient endorses sleeping throughout the day, did not endorse manic and psychotic symptoms. PAST MEDICAL HISTORY: shingles, chronic leukocytosis FAMILY HISTORY: mother has bipolar PERSONAL AND SOCIAL HISTORY: Born in [place], lives at home with her and grandchild near [facility]. SUBSTANCE ABUSE HISTORY: Smokin pack per week ETOH: denies Illicit Drugs: MJ twice a week, denies other drugs, has Geovany on oxycodone before LEGAL HISTORY: 9.39 on initial admission, now 9.37 admission to [facility] MENTAL STATUS EXAMINATION: Behavior: sitting in bed calmly, cooperative Speech : normal RRVT Thought processes including: linear Thought content: appropriate to conversation. Judgment: fair Insight: fair Orientation: AAOX3 Mood: OK Affect: neutral, mildly anxious, appropriate DIAGNOSES: 1. Bipolar disorder, depressed 2. Opioid induced depression 3. Polysubstance use disorder. PLAN: - Admit to [facility] - Will continue initial psych medications - Will continue inhalants and steroids as directed by the medical team Vital Signs Vital Signs Date Time Temp Pulse Resp B/P (MAP) Pulse Ox O2 Delivery O2 Flow Rate FiO2 07/14/17 14:00 96.0 74 16 129/73 (91) 95 Room Air 07/13/17 16:00 2.0 Laboratory Data 24H Labs Laboratory Tests 2 07/14/17 05:25: Immature Granulocyte % (Auto) 0.9H, White Blood Count 14.2H, Red Blood Count 4.59, Hemoglobin 13.6, Hematocrit 41.2, Mean Corpuscular Volume 89.8, Mean Corpuscular Hemoglobin 29.6, Mean Corpuscular Hemoglobin Concent 33.0, Red Cell Distribution Width 13.6, Platelet Count 411, Neutrophils (%) (Auto) 79.5H, Lymphocytes (%) (Auto) 14.3L, Monocytes (%) (Auto) 5.1H, Eosinophils (%) (Auto) 0.0, Basophils (%) (Auto) 0.2, Neutrophils # (Auto) 11.3H, Lymphocytes # (Auto) 2.0, Monocytes # (Auto) 0.7, Eosinophils # (Auto) 0.0, Basophils # (Auto) 0.0, Immature Granulocyte # (Auto) 0.1H, Nucleated Red Blood Cells % (auto) 0.0, Anion Gap 7L, Glomerular Filtration Rate > 60.0, Blood Urea Nitrogen 16, Creatinine 0.88, Sodium Level 139, Potassium Level 3.6, Chloride Level 97L, Carbon Dioxide Level 35H, Calcium Level 8.7, C-Reactive Protein, Quantitative < 0.30 Home Medications Current Medications Current Medications Acetaminophen (Tylenol Tab) 650 mg Q6HP PRN PO PAIN / FEVER Last administered on 07/12/17 14:04; Start 07/12/17 at 04:30; Stop 08/11/17 at 04:29 Al Hydrox/Mg Hydrox/Simethicone (Mylanta) 30 ml Q4HP PRN PO HEARTBURN; Start 07/12/17 at 04:30; Stop 08/11/17 at 04:29 Albuterol/ Ipratropium (Duoneb (Ipr 0.5mg/Alb 2.5mg)) 3 ml Q4HP PRN NEB SOB/ WHEEZING; Start 07/11/17 at 22:15; Stop 08/10/17 at 22:14 Aripiprazole (AbiLIFY) 5 mg BID PO Last administered on 07/14/17 08:39; Start 07/12/17 at 09:00; Stop 08/11/17 at 08:59 Azithromycin 500 mg/IV Miscellaneous Supplies 1 each/ Dextrose 255 ml @ 255 mls /hr Q24H IV Last administered on 07/13/17 23:51; Start 07/11/17 at 23:00; Stop 07/14/17 at 13:35; Status DC Bismuth Subsalicylate (Pepto Bismol) 30 ml Q6HP PRN PO DIARRHEA; Start at 04:30; Stop 07/12/17 at 04:44; Status DC Buprenorphine/ Naloxone (Suboxone 2/ 0.5mg) 1 tab DAILY SL Last administered on 07/14/17 08:39; Start 07/12/17 at 09:00; Stop 07/19/17 at 08:59 Cefdinir (Omnicef) 300 mg BID PO Last administered on 07/14/17 14:53; Start 07/14/17 at 09:00; Stop 07/21/17 at 08:59 Ceftriaxone Sodium 1 gm/IV Miscellaneous Supplies 10 ml @ 20 mls/hr Q12H IV Last administered on 07/14/17 12:33; Start 07/12/17 at 00:00; Stop 07/14/17 at 13:35; Status DC Citalopram Hydrobromide (CeleXA) 10 mg DAILY PO Last administered on 07/14/17 08:38; Start 07/12/17 at 09:00; Stop 08/11/17 at 08:59 Citalopram Hydrobromide (CeleXA) 20 mg DAILY PO ; Start 07/12/17 at 09:00; Stop 07/12/17 at 09:00; Status DC Clonidine HCl (Catapres) 0.1 mg BID PO Last administered on 07/12/17 09:32; Start 07/12/17 at 09:00; Stop 07/12/17 at 13:40; Status DC Clonidine HCl (Catapres) 0.1 mg TIDP PRN PO WITHDRAWAL SYMPTOMS; Start at 04:30; Stop 07/12/17 at 13:40; Status DC Clonidine HCl (Bdvhkczp-Ice-0) 1 ea Q7D@09 TOP Last administered on 07/12/17 14:32; Start 07/12/17 at 09:00; Stop 08/11/17 at 08:59 Heparin Sodium (Porcine) (Heparin) 5,000 units Q12H SQ ; Start 07/12/17 at 21:00 ; Stop 07/17/17 at 20:59 Home Med (Med Rec Complete!) ASDIRECTED XX ; Start 07/11/17 at 23:15; Stop 07/11/17 at 23:15; Status DC Lorazepam (Ativan) 1 mg Q6HP PRN PO ANXIETY; Start 07/12/17 at 04:30; Stop 07/12/17 at 13:40; Status DC Magnesium Hydroxide (Milk Of Magnesia) 30 ml DAILYPRN PRN PO CONSTIPATION; Start 07/12/17 at 04:30; Stop 08/11/17 at 04:29 Methadone HCl (Dolophine) 5 mg DAILY PO ; Start 07/13/17 at 09:00; Stop at 09:00; Status DC Methadone HCl (Dolophine) 10 mg DAILY PO ; Start 07/12/17 at 09:00; Stop at 09:00; Status DC Methylprednisolone (SOLU medrol) 20 mg Q12H IV Last administered on 07/14/17 01:06; Start 07/13/17 at 14:00; Stop 07/14/17 at 09:45; Status DC Methylprednisolone (SOLU medrol) 40 mg Q12H IV Last administered on 07/13/17 01:42; Start 07/12/17 at 14:00; Stop 07/13/17 at 12:09; Status DC Naloxone HCl (Narcan) 0.2 mg STAT STAT IV Last administered on 07/12/17 06:53 ; Start 07/12/17 at 06:36; Stop 07/12/17 at 06:42; Status DC Nicotine (Nicoderm Cq 14mg) 1 patch DAILY TD Last administered on 07/14/17 08: 38; Start 07/12/17 at 09:00; Stop 08/11/17 at 08:59 Olanzapine (ZyPREXA) 5 mg Q4HP PRN PO AGITATION; Start 07/12/17 at 04:30; Stop 08/11/17 at 04:29 Ondansetron HCl (ZOFRAN INJection) 4 mg Q6HP PRN IV NAUSEA OR VOMITING Last administered on 07/12/17 15:46; Start 07/12/17 at 00:00; Stop 08/11/17 at 00:00 Ondansetron HCl (Zofran) 4 mg Q4HP PRN PO NAUSEA OR VOMITING; Start 07/12/17 at 04:30; Stop 08/11/17 at 04:29 Prednisone (Deltasone) 30 mg DAILY PO Last administered on 07/14/17 10:36; Start 07/14/17 at 09:00; Stop 08/13/17 at 08:59 Trazodone HCl (Desyrel) 50 mg QHSP PRN PO INSOMNIA Last administered on 20:14; Start 07/12/17 at 04:30; Stop 08/11/17 at 04:29 Scheduled ([facility] Mood [facility] Memory) 1 Tab Tab, 1 TAB PO DAILY, (Reported) Desvenlafaxine Succinate Monoh (Pristiq) 25 Mg Tab, 25 MG PO DAILY, (Reported) Mirtazapine (Mirtazapine) 15 Mg Tab, 15 MG PO QHS, (Reported) Allergies Coded Allergies: No Known Allergies (Unverified , 04/24/13) CONRAD GAMBOA MD Jul 14, 2017 16:07
--- NOTE | 2017-07-14 16:51 | DSES ---
DATE OF ADMISSION: 07/12/2017 DATE OF DISCHARGE: PRIMARY CARE PROVIDER: None. Attempt was made to arrange for primary care provider as an outpatient once the patient was ready for discharge by psychiatrist, Dr. Lindquist. FINAL DIAGNOSES: 1. Acute metabolic encephalopathy secondary to hypercarbic respiratory failure, possibly also narcotic overdose. 2. Pneumonia, possible aspiration pneumonia. 3. Reactive airway disease. 4. Acute hypoxic hypercarbic respiratory failure. 5. Bipolar and depression. 6. Leukocytosis. 7. Suicidal ideation. 8. Narcotic overdose. HISTORY OF PRESENT ILLNESS: This is a 52-year-old female patient with underlying medical history of depression, bipolar disease, anxiety, history of suicidal ideation and overdose, history of shingles and chronic leukocytosis, who was recently admitted to inpatient mental [facility] on 07/03/2017 under the care of Dr. Lindquist for depression. The patient was found by nursing staff around 2200 hours on the day of admission to be unarousable. As per nursing staff, the patient did wake up and seem very altered, unsure of her surroundings and unsure of where she was. She also complained of shortness of breath. Her oxygenation was in the 60s at the bedside reading and rapid assessment team was called. Upon examination, the patient was sitting in the bed in no apparent distress with nonlabored breathing patterns, and the patient seems to be confused, though is alert to person and place and thinking it was midday rather than night. She complained of some shortness of breath that just occurred and she denied history of lung disease, shortness of breath in the past, and she denies chest pain, nausea, vomiting, dizziness. She was given supplemental oxygen and oxygen saturation slowly improved to above 90 with improvement in respirations. Pupils were noted to be pinpoint bilaterally with minimal response to light and diminished lung sounds throughout. The patient subsequently was transferred from psychiatric unit to progressive care unit (PCU). HOSPITAL COURSE: In the progressive care unit (PCU), the patient was given Narcan. ABG showed hypercarbic respiratory failure on hypoxic respiratory failure. The patient was moved to the intensive care unit (ICU). Pending initiation of BiPAP, a repeat ABG showed resolution. The patient remained asymptomatic with improving mental status. Antibiotics were started for suspected pneumonia, possible aspiration pneumonia. Also, given the possibility of reactive airway disease and long-standing history of smoking, nebulizer treatment, as well as Solu-Medrol were started. The patient's benzodiazepine and methadone were discontinued. The patient was monitored in the intensive care unit (ICU) overnight and later moved to medical/surgical floor with clinical improvement, FiO2 was weaned. The patient is currently tolerating room air in no acute distress with mild cough with improving respiratory status, ready to be transferred back to inpatient mental health unit for further care. VITAL SIGNS: Temperature 96, pulse 74, respirations 16, blood pressure 129/73, pulse oximetry 95% on room air. GENERAL: The patient is obese, alert, in no acute distress. HEENT: Normocephalic, atraumatic. PULMONARY: Bilaterally clear to auscultation. No wheeze, rales or rhonchi. CARDIAC: Regular rate and rhythm. Normal S1, S2. ABDOMEN: Soft, nontender. Positive bowel sounds. EXTREMITIES: No clubbing, cyanosis or edema. LABORATORY DATA: WBC 14.2, hemoglobin and hematocrit 13.6/41.2, platelets 411. Chemistry: Sodium 139, potassium 3.6, chloride 97, bicarbonate 35, BUN 16, creatinine 0.8, C-reactive protein negative. Respiratory panel negative. DISCHARGE MEDICATIONS: - Cefdinir 200 mg by mouth twice a day for 5 more days - clonidine patch for opioid withdrawal, 0.1 over 24 hours, one patch for the next 7 days - nicotine patch 14 mg daily - Zofran 4 mg by mouth every 4 hours as needed - prednisone taper 10 mg tablet two tablets daily for 2 days, then one tablet daily for 2 days and then stop Further psychiatric medications as per psychiatry. DISCHARGE RECOMMENDATIONS: Followup with primary care provider in 7 days. Followup with psychiatry for further care. Avoid methadone. Avoid benzodiazepine and other narcotics if possible. Smoking cessation. The patient is discharged to inpatient mental health unit for further care as per psychiatry. Time spent arranging and coordinating discharge was 35 minutes.
== END 2017-07-14 16:35 | DRG 137 ==
LOC: M PCU 22:52 → INTOOBSV 22:52 → M ICU 07-12 08:19 → OBSVTOIN 07-12 13:40 → M MSPAV 07-13 17:30
PROVIDERS: ADMIT Internal Medicine; ATTEND Internal Medicine
DX: J69.0 Pneumonitis due to inhalation of food and vomit (principal); J96.01 Acute respiratory failure with hypoxia; J96.02 Acute respiratory failure with hypercapnia; G93.41 Metabolic encephalopathy; F11.94 Opioid use, unspecified with opioid-induced mood disorder; F17.210 Nicotine dependence, cigarettes, uncomplicated; F32.9 Major depressive disorder, single episode, unspecified; Z91.5 Personal history of self-harm; Z79.899 Other long term (current) drug therapy; Z90.710 Acquired absence of both cervix and uterus

== ENCOUNTER 2017-07-14 16:17 | Inpatient (IN) | payer BC ==
[~2017-07-14] VITALS: Ht 160 cm; Wt 95.0 kg
[~2017-07-14 16:17] MED LIST changes: +CATA0.1D TOP; +CEFD300CAP PO; +NICO14PA TD; +ONDA4TAB5 PO; +PRED10TA2 PO
[2017-07-14 16:54] VITALS: BP 171/90
--- NOTE | 2017-07-14 17:14 | MHHPEPDOC ---
[facility] History & Physical History and Physical DATE OF ADMISSION: Jul 14, 2017 at 16:54 LEGAL STATUS AT ADMISSION: .9.37 CHIEF COMPLAINT: depression and SI As per consult note by this provider today: "52 y/o F, PMH of shingles, chronic leukocytosis, PSH of bipolar d/o, anxiety, history of SA by OD, recently admitted to [facility] 07/03/17 for depression in the context of family stressors, admitted to Medicine for SOB, O2 desaturation to 60s, and subsequent LOC. By the time rapid assessment arrived, pt was sitting in bed in no apparent distress , with non-labored breathing, though confused." As per Dr. Hong's discharge summary today: "In the progressive care unit (PCU), the patient was given Narcan. ABG showed hypercarbic respiratory failure on hypoxic respiratory failure. The patient was moved to the intensive care unit (ICU). Pending initiation of BiPAP, a repeat ABG showed resolution. The patient remained asymptomatic with improving mental status. Antibiotics were started forsuspected pneumonia, possible aspiration pneumonia. Also, given thepossibilitof reactive airway disease and long-standing history of smoking, nebulizer treatment, as well as Solu-Medrol were started. The patient's benzodiazepine and methadone were discontinued. The patient was monitored in the intensive care unit (ICU) overnight and later moved to medical/surgical floor with clinical improvement, FiO2 was weaned." As per this provider's consult note: "By 07/14/17, the patient was breathing normally on room air, O2 sats in the mid 90s, and medically cleared by the Medicine team. Psych was consulted for a transfer back to the Psych unit. Upon examination, the patient reports OK mood, denies SI intent and plan. Was able to clearly and reasonable communicate with this provider without any signs of delirium. Patient endorses sleeping throughout the day, did not endorse manic and psychotic symptoms." After transfer to the psych floor, the patient's mood and symptoms remained the same, denying SI intent and plan. States that she has some nausea, feels slightly anxious, which she attributes to opioid withdrawal. Patient was convinced that it was Dr. Lindquist's plan to resume daily suboxone, but the medicine team discontinued her suboxone and methadone. of note, patient states methadone made her nauseous. PAST MEDICAL HISTORY: shingles, chronic leukocytosis ALLERGIES: Denies FAMILY HISTORY: mother has bipolar PERSONAL AND SOCIAL HISTORY: Born in [place], lives at home with her and grandchild near [facility]. SUBSTANCE ABUSE HISTORY: Smokin pack per week ETOH: denies Illicit Drugs: MJ twice a week, denies other drugs, has Geovany on oxycodone before MENTAL STATUS EXAMINATION: Behavior: sitting in bed calmly, cooperative Speech : normal RRVT Thought processes including: linear Thought content: appropriate to conversation. Judgment: fair Insight: fair Orientation: AAOX3 Mood: OK Affect: neutral, mildly anxious, appropriate VITAL SIGNS: Please see below. DIAGNOSES: 1. Bipolar disorder, depressed 2. Opioid induced depression 3. Polysubstance use disorder PLAN: As per Dr. Hong's discharge summary's recommendations: - Suboxone 2/0.5 mg once tomorrow morning, as patient was convinced that it was Dr. Lindquist's plan to resume suboxone. Dr. Linduqist on Sunday can decide whether to keep suboxone. - Cefdinir 200 mg po BID for 5 more days - clonidine patch for opioid withdrawal, 0.1 over 24 hours, one patch for the next 7 days - nicotine patch 14 mg daily - Zofran 4 mg by mouth every 4 hours as needed - prednisone taper 10 mg tablet two tablets daily for 2 days, then one tablet daily for 2 days and then stop - Will continue initial psych medications: - pristiq 25 mg daily for mood - estroven 1 tab op daily for menopausal symptoms ESTIMATED LENGTH OF STAY: 3 DAYS. TIME SPENT COUNSELING AND COORDINATING INITIAL CARE: 50 minutes. Vital Signs Vital Signs Date Time Temp Pulse Resp B/P (MAP) Pulse Ox O2 Delivery O2 Flow Rate FiO2 07/14/17 16:54 63 18 171/90 (117) 94 Room Air Medications Scheduled (Estroven Mood & Memory) 1 Tab Tab, 1 TAB PO DAILY, (Reported) Cefdinir (Cefdinir) 300 Mg Cap, 300 MG PO BID Clonidine Hydrochloride (Anyfnrnl-Gpf-6) 0.1 Mg/24 Hr Dis, 1 EA TOP Q7D@09 Desvenlafaxine Succinate Monoh (Pristiq) 25 Mg Tab, 25 MG PO DAILY, (Reported) Nicotine (Nicotine Transdermal Syst) 14 Mg/24 Hr Dis, 1 PATCH TD DAILY Prednisone (Prednisone) 10 Mg Tab, 10 MG PO ASDIRECTED Take 2 tabs daily for 2 days, then 1 tab daily for 2 days, then stop. Scheduled PRN Ondansetron HCl (Ondansetron HCl) 4 Mg Tab, 4 MG PO Q4HP PRN for NAUSEA OR VOMITING Allergies Coded Allergies: No Known Allergies (Unverified , 04/24/13) CONRAD GAMBOA MD Jul 14, 2017 17:14
[2017-07-14] MEDS ORDERED: ONDA4TAB5 PO (18:01)
[2017-07-14] MEDS ORDERED: cloNIDine 0.1 MG TAB PO PRN ×2 (18:15→18:30)
[2017-07-14] MEDS ORDERED: ONDANSETRON 4 MG TAB (S0181) PO PRN (18:30)
[2017-07-14] MEDS ORDERED: CEFDINIR 300 MG CAP (OMNICEF) PO SCH ×2 (21:00)
[2017-07-14] MEDS: CEFDINIR 300 MG CAP (OMNICEF) PO SCH (21:12)
[2017-07-15 06:55] VITALS: BP 145/80
[2017-07-15] MEDS: CEFDINIR 300 MG CAP (OMNICEF) PO SCH ×2 (08:08→20:16)
[2017-07-15] MEDS: DESVENLAFAXINE ER 50 MG TABLET (PRISTIQ) PO SCH (08:08)
[2017-07-15] MEDS: NICOTINE 14 MG/24 HR TRANSDERMAL TD PRN (08:15)
[2017-07-15] MEDS ORDERED: predniSONE 10 MG TAB PO SCH (09:00)
[2017-07-15] MEDS ORDERED: [UNRECOGNIZED DRUG - OTHER] PO SCH (09:00)
[2017-07-15] MEDS ORDERED: BUPRENORPHINE/NALOXONE 2-0.5MG SUBLINGUAL TABLET(SUBOXONE) SL SCH ×2 (09:00)
[2017-07-15] MEDS ORDERED: traZODone 50 MG TAB PO PRN (14:45)
--- NOTE | 2017-07-15 14:49 | MHIPNPDOC ---
[facility] Progress Note Progress Note DATE OF SERVICE: 07/15/17 HISTORY: Patient states her mood is good, denies SI intent and plan, states she had good sleep. Patient states she was on Abilify for her mood, which was not started this admission. Patient is walking around on the unit, socializing, breathing OK. VITAL SIGNS: See below. NEW TEST RESULTS: NA CURRENT MEDICATIONS: See below. MENTAL STATUS EXAMINATION: Behavior: talking to mother, cooperative, polite, related Speech: normal RRVT Thought processes including: linear Thought content: appropriate to conversation Judgment: fair Insight: fair Orientation: AAOX3 Mood: good Affect: euthymic DIAGNOSES: 1. Bipolar disorder, depressed 2. Opioid induced depression 3. Polysubstance use disorder PLAN: - Suboxone 2/0.5 mg once tomorrow morning, as patient was convinced that it was Dr. Lindquist's plan to resume suboxone. Dr. Lindquist on Sunday can decide whether to keep suboxone. - Cefdinir 300 mg po BID for 4 more days - clonidine patch for opioid withdrawal, 0.1 over 24 hours, one patch for the next 7 days. If patch not available, can used oral clonidine. - nicotine patch 14 mg daily - Zofran 4 mg by mouth every 4 hours as needed - prednisone taper 10 mg tablet two tablets daily for 2 days, then one tablet daily for 2 days and then stop - Will continue initial psych medications: - pristiq 25 mg daily for mood - estroven 1 tab op daily for menopausal symptoms - Abilify 5 mg BID for mood ESTIMATED LENGTH OF STAY: 3 DAYS. TIME SPENT COUNSELING AND COORDINATING INITIAL CARE: 50 minutes. Vital Signs Vital Signs Date Time Temp Pulse Resp B/P (MAP) Pulse Ox O2 Delivery O2 Flow Rate FiO2 07/15/17 06:55 97.4 73 12 145/80 (101) 07/14/17 16:54 94 Room Air Current Medications Current Medications Aripiprazole (AbiLIFY) 5 mg BID PO ; Start 07/15/17 at 21:00; Stop 08/14/17 at 20:59 Buprenorphine/ Naloxone (Suboxone 2/ 0.5mg) 1 tab DAILY SL ; Start 07/15/17 at 09:00; Stop 07/15/17 at 09:00; Status DC Buprenorphine/ Naloxone (Suboxone 2/ 0.5mg) 1 tab DAILY SL Last administered on 07/15/17 08:08; Start 07/15/17 at 09:00; Stop 07/15/17 at 14:00; Status DC Cefdinir (Omnicef) 200 mg BID PO ; Start 07/14/17 at 21:00; Stop 07/14/17 at 21: 00; Status DC Cefdinir (Omnicef) 300 mg BID PO Last administered on 07/15/17 08:08; Start 07/14/17 at 21:00; Stop 07/21/17 at 20:59 Cefdinir (Omnicef) 300 mg BID PO ; Start 07/14/17 at 21:00; Stop 07/14/17 at 21: 00; Status DC Clonidine HCl (Catapres) 0.1 mg TID PRN PO WITHDRAWAL SYMPTOMS; Start 07/14/17 at 18:15; Stop 07/14/17 at 18:15; Status DC Clonidine HCl (Catapres) 0.1 mg TID PRN PO WITHDRAWAL SYMPTOMS; Start 07/14/17 at 18:30; Stop 08/13/17 at 18:29 Desvenlafaxine Succinate (Pristiq) 25 mg DAILY PO Last administered on 08:08; Start 07/15/17 at 09:00; Stop 08/14/17 at 08:59 Miscellaneous (Unresolved Patient Own Med Order) SEE LABEL COMMENTS UNRESOLVED XX ; Start 07/14/17 at 00:01; Stop 08/13/17 at 00:00 Nicotine (Nicoderm Cq 14mg) 1 patch DAILY PRN TD WITHDRAWAL SYMPTOMS Last administered on 07/15/17 08:15; Start 07/14/17 at 18:30; Stop 08/13/17 at 18:29 Ondansetron HCl (Zofran) 4 mg Q4HP PRN PO NAUSEA OR VOMITING; Start 07/14/17 at 18:30; Stop 08/13/17 at 18:29 Patient Own Medication (Patient'S Own Med) Estroven Mood and Memory... DAILY PO ; Start 07/15/17 at 09:00; Stop 08/14/17 at 08:59; Status UNV Prednisone (Deltasone) 10 mg DAILY PO ; Start 07/17/17 at 09:00; Stop at 09:01 Prednisone (Deltasone) 20 mg DAILY PO ; Start 07/15/17 at 09:00; Stop at 09:00; Status DC Trazodone HCl (Desyrel) 50 mg QHSP PRN PO INSOMNIA; Start 07/15/17 at 14:45; Stop 08/14/17 at 14:44 Allergies Coded Allergies: No Known Allergies (Unverified , 04/24/13) CONRAD GAMBOA MD Jul 15, 2017 14:49
[2017-07-15 18:00] VITALS: BP 130/90
[2017-07-16 06:00] VITALS: BP 136/79
[2017-07-16] MEDS: DESVENLAFAXINE ER 50 MG TABLET (PRISTIQ) PO SCH (08:10)
[2017-07-16] MEDS: CEFDINIR 300 MG CAP (OMNICEF) PO SCH (08:10)
[2017-07-16] MEDS: NICOTINE 14 MG/24 HR TRANSDERMAL TD PRN (08:10)
--- NOTE | 2017-07-16 11:43 | HPE ---
DATE OF ADMISSION: 07/14/2017 HISTORY OF THE PRESENT ILLNESS: Please refer to psychiatric history and evaluation for further details on this admission. This examination and history is intended for medical issues which may need treatment, follow-up or consultation on this 52-year-old female who was initially on the inpatient mental health unit, developed shortness of breath, decreased respiratory status, altered mental status, was assessed and transferred to PCU. She was given Narcan and subsequently moved to ICU for possible BiPAP. Repeat ABG showed resolution. Antibiotics were started for suspected pneumonia. IV Solu-Medrol and DuoNebs were given. The patient's benzodiazepine and methadone were discontinued. The patient stabilized and was later moved to the medical surgical floor with continued clinical improvement. Oxygen was weaned. Patient was tolerating room air and has subsequently been transferred back to the inpatient mental health unit. SOCIAL HISTORY: She resided in [place]. She is . She cares for three grandchildren. She smokes one pack of cigarettes per day. She has been obtaining opiates and using them. Also smoking marijuana twice a week. EtOH denies. PAST MEDICAL HISTORY: Depression. Anxiety. Bipolar disorder. History of suicidal ideations. History of substance abuse of benzodiazepines and opiates. History of shingles. Decreasing hearing right ear. History of chronic leukocytosis. History of chronic knee pain right. PAST SURGICAL HISTORY: Hysterectomy. Oophorectomy times 1. section. FAMILY HISTORY: Noncontributory. REVIEW OF SYSTEMS: 10 systems review was done. She was feeling much better. She had no complaints. No cough. PHYSICAL EXAMINATION: GENERAL: 52-year-old female in no acute distress. Blood pressure 145/80, pulse 73, respirations 16, temperature 97. HEENT: Pupils equal and react to light. EOM's are intact. Cornea and sclerae are clear. Conjunctivae are normal. No facial asymmetry. Pharynx, tongue and gums are pink and moist. Tongue is midline. NECK: Supple without lymphadenopathy. No thyromegaly. No goiter. CHEST: Clear to auscultation without wheeze or retraction. HEART: Regular. ABDOMEN: Benign. Bowel sounds are positive. /RECTAL: Not done. EXTREMITIES: Show equal strength. Full bodsk-bu-lilvcu. No cyanosis, clubbing or edema. Peripheral pulses are equal and palpable bilaterally. SKIN: Warm and dry. IMPRESSION/PLAN: 1. Psychiatric plan per psychiatry. 2. History of chronic leukocytosis. Patient is afebrile. Peripheral smear done April 2017 negative for blasts. 3. Tobacco abuse. Patch available. 4. Borderline blood pressure. Monitor for hypertension. May need antihypertensive. 5. Monitor respiratory status. Antibiotics and prednisone as ordered. Patient will need primary care provider to followup with following discharge.
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
[2017-07-16] MEDS ORDERED: TRAZO50TA PO (13:21)
[2017-07-16] MEDS ORDERED: PRIS50TA PO (13:21)
[2017-07-16] MEDS ORDERED: PRED10TA2 PO (13:21)
[2017-07-16] MEDS ORDERED: CEFD300CAP PO (13:21)
[2017-07-16] MEDS ORDERED: ARIP5TA PO (13:21)
[2017-07-17] MEDS ORDERED: predniSONE 10 MG TAB PO SCH (09:00)
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
== END 2017-07-16 15:40 | disposition home or self-care (01) | DRG 753 ==
LOC: M PSY 16:54
PROVIDERS: ADMIT Psychiatry & Neurology Psychiatry; ATTEND Psychiatry & Neurology Psychiatry
DX: F31.9 Bipolar disorder, unspecified (principal); R45.851 Suicidal ideations; F19.90 Other psychoactive substance use, unspecified, uncomplicated; F17.210 Nicotine dependence, cigarettes, uncomplicated; R03.0 Elevated blood-pressure reading, without diagnosis of hypertension; Z79.899 Other long term (current) drug therapy; Z90.710 Acquired absence of both cervix and uterus

== ENCOUNTER → 2017-08-21 | Outpatient (REF) | payer BC ==
[2017-08-21 17:23] LABS: ALBUMIN 4.4 GM/DL (3.2-5.2); ALBUMIN/GLOBULIN RATIO 1.33 (1.00-1.93); ALKALINE PHOSPHATASE 107 U/L (45-117); ALT/SGPT 37 U/L (12-78); ANION GAP 6 MEQ/L (8-16); AST/SGOT 18 U/L (7-37); BILIRUBIN,TOTAL 0.2 MG/DL (0.2-1.0); BLOOD UREA NITROGEN 16 MG/DL (7-18); CALCIUM LEVEL 9.7 MG/DL (8.5-10.1); CARBON DIOXIDE LEVEL 28 MEQ/L (21-32); CHLORIDE LEVEL 107 MEQ/L (98-107); CREATININE FOR GFR 0.84 MG/DL (0.55-1.02); GLOMERULAR FILTRATION RATE > 60.0 (>51); GLUCOSE, FASTING 95 MG/DL (70-105); SODIUM LEVEL 141 MEQ/L (136-145); THYROID STIMULATING HORMONE 0.773 uIU/ML (0.358-3.740); TOTAL PROTEIN 7.7 GM/DL (6.4-8.2)
[2017-08-21 17:33] LABS: POTASSIUM SERUM 5.3 MEQ/L (3.5-5.1)
[2017-08-21 18:57] LABS: HEMATOCRIT 49.9 % (36.0-47.0); HEMOGLOBIN 16.1 g/dl (12.0-16.0); MEAN CORPUSCULAR HEMOGLOBIN 29.4 pg (27.0-33.0); MEAN CORPUSCULAR HGB CONC 32.3 g/dl (32.0-36.5); MEAN CORPUSCULAR VOLUME 91.1 fl (80.0-96.0); PLATELET COUNT, AUTOMATED 408 10^3/uL (150-450); RED BLOOD COUNT 5.48 10^6/uL (4.00-5.40); RED CELL DISTRIBUTION WIDTH 14.2 % (11.5-14.5); WHITE BLOOD COUNT 10.8 10^3/uL (4.0-10.0)
== END ==
LOC: M SFHCLERA 10:24
DX: F41.8 Other specified anxiety disorders (principal)
CPT/HCPCS: 84443

== ENCOUNTER → 2017-09-13 | Outpatient (REF) | payer BC ==
[2017-09-13 12:52] LABS: POTASSIUM SERUM 4.2 MEQ/L (3.5-5.1)
[2017-09-13 13:00] LABS: HEMATOCRIT 48.7 % (36.0-47.0); MEAN CORPUSCULAR HEMOGLOBIN 29.5 pg (27.0-33.0); MEAN CORPUSCULAR HGB CONC 32.9 g/dl (32.0-36.5); MEAN CORPUSCULAR VOLUME 89.9 fl (80.0-96.0); PLATELET COUNT, AUTOMATED 341 10^3/uL (150-450); RED BLOOD COUNT 5.42 10^6/uL (4.00-5.40); RED CELL DISTRIBUTION WIDTH 14.1 % (11.5-14.5); WHITE BLOOD COUNT 6.5 10^3/uL (4.0-10.0)
== END ==
LOC: M SFHCLERA 08:06
DX: E87.5 Hyperkalemia (principal)

== ENCOUNTER 2018-05-13 14:11 | Inpatient (IN) | payer BC ==
[~2018-05-13 14:11] MED LIST changes: -ABIL10TA PO; -ABIL5TAB PO; -ARIP1TAB4 PO; -BENZ-52 PO; -BUSP10TA PO; -CATA0.1D TOP; -CEFD300CAP PO; -EFFE75CA75 PO; -ESTRTAB6 PO; -GABA-282 PO; -HYDR-3363 PO; -HYDR-3713 PO; -IBUP-1114 PO; -LATU20TA PO; -METH20TA29 PO; -METH5TAB76 PO; -METHY10TA PO; -MINI1CAP PO; -MIRT15TA3 PO; -NICO14PA TD; +NICOTINE 21MG/24HR 1 EA TRANSDERMAL TD; -ONDA4TAB5 PO; -PRED10TA2 PO; -PRIS1TAB PO; -PRIS50TA PO; -PROP10TAB PO; -PROZ20CA11 PO; -PROZ40CA PO; -QUET1TAB7 PO; -SERT-138 PO; -TRAZO50TA PO; -TRIL600T PO; -ZOLP-187 PO
[2018-05-13 14:43] LABS: HEMATOCRIT 49.3 % (36.0-47.0); HEMOGLOBIN 16.5 g/dl (12.0-15.5); MEAN CORPUSCULAR HEMOGLOBIN 29.9 pg (27.0-33.0); MEAN CORPUSCULAR HGB CONC 33.5 g/dl (32.0-36.5); MEAN CORPUSCULAR VOLUME 89.3 fl (80.0-96.0); PLATELET COUNT, AUTOMATED 391 10^3/uL (150-450); RED BLOOD COUNT 5.52 10^6/uL (4.00-5.40); RED CELL DISTRIBUTION WIDTH 14.6 % (11.5-14.5)
[2018-05-13] MEDS: LORazepam 2 MG TAB PO (15:01)
[2018-05-13 15:12] LABS: AMPHETAMINES LEVEL URINE NEGATIVE (NEGATIVE); BARBITURATES URINE NEGATIVE (NEGATIVE); BENZODIAZEPINES URINE NEGATIVE (NEGATIVE); CANNABINOIDS URINE POSITIVE (NEGATIVE); COCAINE METABOLITE URINE NEGATIVE (NEGATIVE); METHADONE URINE NEGATIVE (NEGATIVE); OPIATES URINE NEGATIVE (NEGATIVE); PHENCYCLIDINE URINE NEGATIVE (NEGATIVE)
[2018-05-13 15:19] LABS: ACETAMINOPHEN LEVEL < 2.0 UG/ML (10.0-30.0); ALBUMIN 4.1 GM/DL (3.2-5.2); ALKALINE PHOSPHATASE 99 U/L (45-117); ALT/SGPT 27 U/L (12-78); ANION GAP 7 MEQ/L (8-16); AST/SGOT 13 U/L (7-37); BILIRUBIN,DIRECT < 0.1 MG/DL (0.0-0.2); BILIRUBIN,TOTAL 0.4 MG/DL (0.2-1.0); BLOOD UREA NITROGEN 16 MG/DL (7-18); CARBON DIOXIDE LEVEL 27 MEQ/L (21-32); CHLORIDE LEVEL 107 MEQ/L (98-107); CREATININE FOR GFR 0.92 MG/DL (0.55-1.30); ETHYL ALCOHOL (ETHANOL) < 0.003 % (0.000-0.010); GLOMERULAR FILTRATION RATE > 60.0 (>51); GLUCOSE, FASTING 118 MG/DL (70-100); POTASSIUM SERUM 4.3 MEQ/L (3.5-5.1); SALICYLATE LEVEL 6.2 MG/DL (5.0-30.0); SODIUM LEVEL 141 MEQ/L (136-145); TOTAL PROTEIN 8.2 GM/DL (6.4-8.2)
[2018-05-13] MEDS ORDERED: ACETAMINOPHEN TAB 650MG DOSE (2X325MG) PO (18:00)
[2018-05-13] MEDS ORDERED: MOM 30ML SUSPENSION UDC PO (18:00)
[2018-05-13] MEDS ORDERED: MAALOX 30 ML SUSP *UDC PO (18:00)
[2018-05-13] MEDS: BUPRENORPHINE/NALOXONE 2-0.5MG SUBLINGUAL TABLET(SUBOXONE) SL (20:18)
[2018-05-13] MEDS: traZODone 50 MG TAB PO (21:01)
[2018-05-14] MEDS: BUPRENORPHINE/NALOXONE 2-0.5MG SUBLINGUAL TABLET(SUBOXONE) SL (08:40)
[2018-05-14] MEDS: FLUoxetine 10 MG CAP PO (08:40)
[2018-05-14] MEDS: NICOTINE 21MG/24HR 1 EA TRANSDERMAL TD (08:40)
[2018-05-14] MEDS ORDERED: FLUoxetine 20 MG CAP PO (09:00)
[2018-05-14] MEDS ORDERED: FLUoxetine 10 MG CAP PO (09:00)
[2018-05-14] MEDS ORDERED: BUPRENORPHINE/NALOXONE 8-2MG SUBLINGUAL TABLET(SUBOXONE) SL (09:00)
[2018-05-14] MEDS: PREVNAR 13 VACCINE SYRINGE (CPT CODE:90670) IM (09:54)
[2018-05-14] MEDS: GABAPENTIN 300 MG CAP PO (20:16)
[2018-05-14] MEDS: traZODone 50 MG TAB PO (20:17)
[2018-05-15 07:27] LABS: BASO % 0.4 % (0.0-1.0); EOS # 0.3 10^3/uL (0.0-0.50); EOS % 3.2 % (0.0-3.0); HEMATOCRIT 42.1 % (36.0-47.0); IMMATURE GRANULOCYTE % 0.6 % (0-3.0); LYMPH # 4.3 10^3/uL (1.5-4.5); LYMPH % 41.2 % (24.0-44.0); MEAN CORPUSCULAR HEMOGLOBIN 29.5 pg (27.0-33.0); MEAN CORPUSCULAR HGB CONC 33.3 g/dl (32.0-36.5); MEAN CORPUSCULAR VOLUME 88.8 fl (80.0-96.0); MONO # 0.8 10^3/uL (0.0-0.8); MONO % 7.8 % (0.0-5.0); NEUTROPHILS # 4.9 10^3/uL (1.8-7.7); NEUTROPHILS % 46.8 % (36.0-66.0); PLATELET COUNT, AUTOMATED 322 10^3/uL (150-450); RED BLOOD COUNT 4.74 10^6/uL (4.00-5.40); RED CELL DISTRIBUTION WIDTH 14.4 % (11.5-14.5); WHITE BLOOD COUNT 10.5 10^3/uL (4.0-10.0)
[2018-05-15 08:03] LABS: C REACTIVE PROTEIN QUANTITATIV 1.07 MG/DL (0.00-0.30)
[2018-05-15 08:28] LABS: ERYTHROCYTE SEDIMENTATION RATE 15 mm/hr (0-30)
[2018-05-15] MEDS: FLUoxetine 20 MG CAP PO (08:32)
[2018-05-15] MEDS: BUPRENORPHINE/NALOXONE 2-0.5MG SUBLINGUAL TABLET(SUBOXONE) SL (08:32)
[2018-05-15] MEDS: NICOTINE 21MG/24HR 1 EA TRANSDERMAL TD (08:33)
[2018-05-15] MEDS: traZODone 50 MG TAB PO (20:29)
[2018-05-15] MEDS: GABAPENTIN 300 MG CAP PO (20:29)
[2018-05-16] MEDS: FLUoxetine 20 MG CAP PO (08:12)
[2018-05-16] MEDS: BUPRENORPHINE/NALOXONE 2-0.5MG SUBLINGUAL TABLET(SUBOXONE) SL (08:12)
[2018-05-16] MEDS: NICOTINE 21MG/24HR 1 EA TRANSDERMAL TD (08:13)
[2018-05-16] MEDS: buPROPion **XL** TABLET 150MG (WELLBUTRIN XL) PO (09:05)
[2018-05-16] MEDS: GABAPENTIN 300 MG CAP PO (20:28)
[2018-05-16] MEDS: traZODone 50 MG TAB PO (20:29)
[2018-05-17] MEDS: buPROPion **XL** TABLET 150MG (WELLBUTRIN XL) PO (08:41)
[2018-05-17] MEDS: BUPRENORPHINE/NALOXONE 2-0.5MG SUBLINGUAL TABLET(SUBOXONE) SL (08:41)
[2018-05-17] MEDS: FLUoxetine 20 MG CAP PO (08:41)
[2018-05-17] MEDS: NICOTINE 21MG/24HR 1 EA TRANSDERMAL TD (08:42)
[2018-05-17] MEDS: GABAPENTIN 300 MG CAP PO (20:13)
[2018-05-17] MEDS: traZODone 50 MG TAB PO (20:13)
[2018-05-18] MEDS: NICOTINE 21MG/24HR 1 EA TRANSDERMAL TD (09:42)
[2018-05-18] MEDS: BUPRENORPHINE/NALOXONE 2-0.5MG SUBLINGUAL TABLET(SUBOXONE) SL (09:42)
[2018-05-18] MEDS: FLUoxetine 20 MG CAP PO (09:42)
[2018-05-18] MEDS: buPROPion **XL** TABLET 150MG (WELLBUTRIN XL) PO (09:42)
[2018-05-18] MEDS: traZODone 50 MG TAB PO (20:12)
[2018-05-18] MEDS: GABAPENTIN 300 MG CAP PO (20:12)
[2018-05-19] MEDS: FLUoxetine 20 MG CAP PO (08:33)
[2018-05-19] MEDS: NICOTINE 21MG/24HR 1 EA TRANSDERMAL TD (08:33)
[2018-05-19] MEDS: BUPRENORPHINE/NALOXONE 2-0.5MG SUBLINGUAL TABLET(SUBOXONE) SL (08:33)
[2018-05-19] MEDS: buPROPion **XL** TABLET 150MG (WELLBUTRIN XL) PO (08:33)
[2018-05-19] MEDS: GABAPENTIN 300 MG CAP PO (21:10)
[2018-05-19] MEDS: traZODone 50 MG TAB PO (21:10)
[2018-05-20] MEDS: NICOTINE 21MG/24HR 1 EA TRANSDERMAL TD (08:47)
[2018-05-20] MEDS: buPROPion **XL** TABLET 150MG (WELLBUTRIN XL) PO (08:47)
[2018-05-20] MEDS: FLUoxetine 20 MG CAP PO (08:47)
[2018-05-20] MEDS ORDERED: UNRESOLVED CLARIFICATION ENTRY XX (09:00)
[2018-05-20] MEDS: BUPRENORPHINE/NALOXONE 2-0.5MG SUBLINGUAL TABLET(SUBOXONE) SL (09:36)
== END 2018-05-20 15:40 | disposition home or self-care (01) | DRG 751 ==
LOC: M ED 14:11 → M ED INP 17:53 → M PSY 19:00
DX: F33.9 Major depressive disorder, recurrent, unspecified (principal); F17.200 Nicotine dependence, unspecified, uncomplicated; F11.90 Opioid use, unspecified, uncomplicated; Z79.899 Other long term (current) drug therapy; F90.9 Attention-deficit hyperactivity disorder, unspecified type; F41.9 Anxiety disorder, unspecified; D72.829 Elevated white blood cell count, unspecified

== ENCOUNTER → 2018-07-12 | Outpatient (CLI) | payer BC | LOC: M LRY 11:33 | DX: R06.09 Other forms of dyspnea (principal) | CPT/HCPCS: 71046 ==

== ENCOUNTER → 2019-05-11 | Outpatient (REF) | payer BC ==
[~2019-05-11] MED LIST changes: +ABIL10TA PO; +ABIL5TAB PO; +ARIP1TAB4 PO; +ARIP1TAB6 PO; +BENZ-52 PO; +BUPR150T3 PO; +BUSP10TA PO; +CATA0.1D TOP; +CEFD300CAP PO; +EFFE75CA2 PO; +ESTRTAB6 PO; +FLUO40CA PO; +GABA-843 PO; +HYDR-3363 PO; +HYDR-3713 PO; +IBUP-1114 PO; +LATU20TA PO; +METH-1022 PO; +METH20TA29 PO; +METH5TAB76 PO; +MINI1CAP PO; +MIRT15TA3 PO; +NICO14PA TD; +NICO21PAT TD; -NICOTINE 21MG/24HR 1 EA TRANSDERMAL TD; +ONDA4TAB5 PO; +PRED10TA2 PO; +PRIS1TAB PO; +PRIS50TA PO; +PROP10TA55 PO; +PROZ10CA7 PO; +PROZ20CA11 PO; +PROZ40CA PO; +QUET1TAB7 PO; +SERT-138 PO; +SUBO2MIS SL; +TRAZ1TAB10 PO; +TRIL600T PO; +ZOLP-187 PO
[2019-05-14 08:19] LABS: Lyme Disease IgG/IgM Antibodie <0.91 ISR (0.00-0.90); Lyme Disease IgM Ab Quantitati <0.80 index (0.00-0.79)
== END ==
LOC: M SFHCLERA 11:58
PROVIDERS: ATTEND Physician Assistant
DX: M25.50 Pain in unspecified joint (principal)

== ENCOUNTER → 2019-06-10 | Outpatient (REF) | payer BC ==
[2019-06-10 17:29] LABS: HEMOGLOBIN A1c 5.9 %
[2019-06-10 17:55] LABS: FOLLICLE STIMULATING HORMONE 62.8 mIU/mL; LUTEINIZING HORMONE 9.9 mIU/mL; THYROID STIMULATING HORMONE 1.19 uIU/ML (0.358-3.740)
== END ==
LOC: M SFHCLERA 12:45
PROVIDERS: ATTEND Family Medicine
DX: R73.09 Other abnormal glucose (principal); R23.2 Flushing

== ENCOUNTER → 2019-07-09 | Outpatient (REF) | payer BC | LOC: M SFHCLERA 09:34 | PROVIDERS: ATTEND Family Medicine | DX: Z78.0 Asymptomatic menopausal state (principal); Z53.9 Procedure and treatment not carried out, unspecified reason ==

== ENCOUNTER 2019-09-04 16:36 | Emergency (ER) | payer BC ==
[~2019-09-04] VITALS: Ht 160 cm; Wt 83.0 kg
[~2019-09-04 16:36] MED LIST changes: +ONDA-83 PO; -ONDA4TAB5 PO
[2019-09-04] MEDS ORDERED: LORazepam 2 MG TAB PO ONE ×2 (17:30→19:45)
[2019-09-04] MEDS ORDERED: traZODone 50 MG TAB PO ONE (18:15)
[2019-09-04 19:53] VITALS: BP 141/75
[2019-09-05] MEDS ORDERED: FLUO40CA PO (16:52)
[2019-09-05] MEDS ORDERED: IBUP-1720 PO (16:52)
[2019-09-05] MEDS ORDERED: GABA600T4 PO (16:52)
[2019-09-05] MEDS ORDERED: BUPR150T3 PO (16:52)
[2019-09-05] MEDS ORDERED: TRAZ-186 PO (16:52)
== END 2019-09-04 19:57 | disposition home or self-care (01) ==
LOC: M ED 16:36
DX: F41.9 Anxiety disorder, unspecified (principal); F17.200 Nicotine dependence, unspecified, uncomplicated; Z79.899 Other long term (current) drug therapy

== ENCOUNTER 2019-09-05 09:54 | Inpatient (IN) | payer BC ==
[~2019-09-05] VITALS: Ht 160 cm; Wt 83.1 kg
[2019-09-05 10:47] LABS: HEMATOCRIT 47.6 % (36.0-47.0); HEMOGLOBIN 15.9 g/dl (12.0-15.5); MEAN CORPUSCULAR HEMOGLOBIN 29.8 pg (27.0-33.0); MEAN CORPUSCULAR HGB CONC 33.4 g/dl (32.0-36.5); MEAN CORPUSCULAR VOLUME 89.1 fl (80.0-96.0); PLATELET COUNT, AUTOMATED 370 10^3/uL (150-450); RED BLOOD COUNT 5.34 10^6/uL (4.00-5.40); WHITE BLOOD COUNT 12.8 10^3/uL (4.0-10.0)
[2019-09-05 11:13] LABS: AMPHETAMINES LEVEL URINE NEGATIVE (NEGATIVE); BARBITURATES URINE NEGATIVE (NEGATIVE); BENZODIAZEPINES URINE NEGATIVE (NEGATIVE); CANNABINOIDS URINE NEGATIVE (NEGATIVE); COCAINE METABOLITE URINE NEGATIVE (NEGATIVE); METHADONE URINE NEGATIVE (NEGATIVE); OPIATES URINE NEGATIVE (NEGATIVE); PHENCYCLIDINE URINE NEGATIVE (NEGATIVE)
[2019-09-05 11:20] LABS: ALT/SGPT 24 U/L (12-78); BILIRUBIN,DIRECT < 0.1 MG/DL (0.0-0.2); BILIRUBIN,TOTAL 0.3 MG/DL (0.2-1.0); BLOOD UREA NITROGEN 16 MG/DL (7-18); CALCIUM LEVEL 9.4 MG/DL (8.5-10.1); CARBON DIOXIDE LEVEL 28 MEQ/L (21-32); CHLORIDE LEVEL 104 MEQ/L (98-107); ETHYL ALCOHOL (ETHANOL) < 0.003 % (0.000-0.010); GLOMERULAR FILTRATION RATE > 60.0 (>51); GLUCOSE, FASTING 88 MG/DL (70-100); POTASSIUM SERUM 4.6 MEQ/L (3.5-5.1); SALICYLATE LEVEL 3.7 MG/DL (5.0-30.0); SODIUM LEVEL 138 MEQ/L (136-145); TOTAL PROTEIN 7.8 GM/DL (6.4-8.2)
[2019-09-05 11:21] LABS: ACETAMINOPHEN LEVEL < 2.0 UG/ML (10.0-30.0)
[2019-09-05] MEDS ORDERED: hydrOXYzine 25 MG TAB PO STA (11:35)
[2019-09-05] MEDS ORDERED: IBUPROFEN 400 MG TAB PO ONE (11:45)
[2019-09-05] MEDS ORDERED: MOM 30ML SUSPENSION UDC PO PRN (13:45)
[2019-09-05] MEDS ORDERED: hydrOXYzine 50 MG TAB PO PRN (13:45)
[2019-09-05] MEDS ORDERED: MAALOX 30 ML SUSP *UDC PO PRN (13:45)
[2019-09-05] MEDS ORDERED: LORazepam 2 MG TAB PO ONE (16:45)
[2019-09-05] MEDS ORDERED: BUPR150T3 PO (16:52)
[2019-09-05] MEDS ORDERED: TRAZ-186 PO (16:52)
[2019-09-05] MEDS ORDERED: IBUP-1720 PO (16:52)
[2019-09-05] MEDS ORDERED: GABA600T4 PO (16:52)
[2019-09-05] MEDS ORDERED: FLUO40CA PO (16:52)
[2019-09-05] MEDS: BUPRENORPHINE/NALOXONE 2-0.5MG SUBLINGUAL TABLET(SUBOXONE) SL SCH (19:37)
[2019-09-05] MEDS: traZODone 50 MG TAB PO PRN (20:38)
[2019-09-06 06:10] VITALS: BP 111/60
[2019-09-06] MEDS: ACETAMINOPHEN TAB 650MG DOSE (2X325MG) PO PRN (07:49)
[2019-09-06] MEDS: FLUoxetine 20 MG CAP PO SCH (09:51)
[2019-09-06] MEDS: NICOTINE 21MG/24HR 1 EA TRANSDERMAL TD SCH (09:51)
[2019-09-06] MEDS: BUPRENORPHINE/NALOXONE 2-0.5MG SUBLINGUAL TABLET(SUBOXONE) SL SCH (09:51)
[2019-09-06] MEDS: buPROPion 75 MG TAB PO SCH (09:51)
[2019-09-06] MEDS: GABAPENTIN 300 MG CAP PO SCH ×2 (12:57→20:44)
[2019-09-06 15:33] VITALS: BP 120/85
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
[2019-09-06] MEDS: traZODone 50 MG TAB PO PRN (20:44)
[2019-09-07] MEDS: ACETAMINOPHEN TAB 650MG DOSE (2X325MG) PO PRN (02:53)
[2019-09-07 06:16] VITALS: BP 110/74
[2019-09-07] MEDS: BUPRENORPHINE/NALOXONE 2-0.5MG SUBLINGUAL TABLET(SUBOXONE) SL SCH (09:31)
[2019-09-07] MEDS: FLUoxetine 20 MG CAP PO SCH (09:31)
[2019-09-07] MEDS: buPROPion 75 MG TAB PO SCH (09:32)
[2019-09-07] MEDS: GABAPENTIN 300 MG CAP PO SCH ×2 (09:32→20:38)
[2019-09-07] MEDS: NICOTINE 21MG/24HR 1 EA TRANSDERMAL TD SCH (09:33)
--- NOTE | 2019-09-07 14:30 | MHIPN ---
DATE OF SERVICE: 09/07/2019 The patient today states that she is doing "much better". She is calmer. Her anxiety is under better control. She is feeling less depressed. She says that she and her have talked about the fact that she is really too stressed out with all of her grandchildren and she is trying to find ways to help decrease that stress at home. MENTAL STATUS EXAMINATION: She is alert and oriented times three. She is pleasant and cooperative, verbally spontaneous. She is not psychotic, suicidal or homicidal. There is no formal thought disorder noted. Concentration is much better, memory intact. Insight and judgment fair. DIAGNOSIS: Other specified depressive disorder. Other specified anxiety disorder. Opioid use disorder, in remission. Rule out bipolar disorder, type 2. TREATMENT PLAN: At this point, we will continue to monitor the patient for continued elevation and stabilization of her mood and continued resolution of suicidal ideations.
[2019-09-07 16:05] VITALS: BP 132/74
[2019-09-07] MEDS: traZODone 50 MG TAB PO PRN (20:38)
[2019-09-08] MEDS: ACETAMINOPHEN TAB 650MG DOSE (2X325MG) PO PRN (05:29)
[2019-09-08 06:49] VITALS: BP 97/54
[2019-09-08] MEDS ORDERED: **UNRESOLVED NON-FORMULARY MED ORDER XX SCH (09:00)
[2019-09-08] MEDS ORDERED: busPIRone 5 MG TAB PO ONE (09:45)
[2019-09-08] MEDS ORDERED: FLUoxetine 20 MG CAP PO ONE (09:45)
[2019-09-08] MEDS: GABAPENTIN 300 MG CAP PO SCH ×2 (09:48→20:19)
[2019-09-08] MEDS: buPROPion 75 MG TAB PO SCH (09:48)
[2019-09-08] MEDS: BUPRENORPHINE/NALOXONE 2-0.5MG SUBLINGUAL TABLET(SUBOXONE) SL SCH (09:49)
[2019-09-08] MEDS: NICOTINE 21MG/24HR 1 EA TRANSDERMAL TD SCH (09:49)
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
[2019-09-08] MEDS: FLUoxetine 20 MG CAP PO SCH (11:59)
[2019-09-08 16:00] VITALS: BP 121/81
[2019-09-08] MEDS: busPIRone 5 MG TAB PO SCH ×2 (16:56→20:20)
[2019-09-08] MEDS: traZODone 50 MG TAB PO PRN (20:19)
[2019-09-08] MEDS: IBUPROFEN 800 MG TAB PO SCH (20:20)
[2019-09-09] MEDS: IBUPROFEN 800 MG TAB PO SCH ×5 (06:00→23:21)
[2019-09-09 06:16] VITALS: BP 106/56
[2019-09-09] MEDS ORDERED: FLUoxetine 20 MG CAP PO SCH (09:00)
[2019-09-09] MEDS: busPIRone 5 MG TAB PO SCH ×3 (09:25→20:51)
[2019-09-09] MEDS: BUPRENORPHINE/NALOXONE 2-0.5MG SUBLINGUAL TABLET(SUBOXONE) SL SCH (09:25)
[2019-09-09] MEDS: FLUoxetine 20 MG CAP PO SCH (09:25)
[2019-09-09] MEDS: buPROPion 75 MG TAB PO SCH (09:25)
[2019-09-09] MEDS: GABAPENTIN 300 MG CAP PO SCH ×2 (09:25→20:51)
[2019-09-09] MEDS: NICOTINE 21MG/24HR 1 EA TRANSDERMAL TD SCH (09:26)
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
[2019-09-09 16:06] VITALS: BP 126/65
[2019-09-09] MEDS: traZODone 50 MG TAB PO PRN (20:52)
[2019-09-10] MEDS: IBUPROFEN 800 MG TAB PO SCH (06:03)
[2019-09-10 07:23] VITALS: BP 93/51
[2019-09-10] MEDS: busPIRone 5 MG TAB PO SCH (08:06)
[2019-09-10] MEDS: GABAPENTIN 300 MG CAP PO SCH (08:06)
[2019-09-10] MEDS: FLUoxetine 20 MG CAP PO SCH (08:06)
[2019-09-10] MEDS: buPROPion 75 MG TAB PO SCH (08:06)
[2019-09-10] MEDS: NICOTINE 21MG/24HR 1 EA TRANSDERMAL TD SCH (08:07)
[2019-09-10] MEDS: BUPRENORPHINE/NALOXONE 2-0.5MG SUBLINGUAL TABLET(SUBOXONE) SL SCH (08:51)
[2019-09-10] MEDS ORDERED: BUPR150T3 PO (08:53)
[2019-09-10] MEDS ORDERED: GABA600T4 PO (08:53)
[2019-09-10] MEDS ORDERED: FLUO20CA19 PO (08:53)
[2019-09-10] MEDS ORDERED: TRAZ-186 PO (08:53)
[2019-09-10] MEDS ORDERED: HYDR50TA70 PO (08:53)
[2019-09-10] MEDS ORDERED: BUSP5TA PO (08:53)
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
== END 2019-09-10 10:11 | disposition home or self-care (01) | DRG 754 ==
LOC: M ED 09:54 → M ED INP 13:39 → M PSY 17:00
PROVIDERS: ADMIT Psychiatry & Neurology Psychiatry; ATTEND Psychiatry & Neurology Psychiatry
DX: F32.9 Major depressive disorder, single episode, unspecified (principal); F41.9 Anxiety disorder, unspecified; F31.81 Bipolar II disorder; F11.21 Opioid dependence, in remission; Z91.14 Patient's other noncompliance with medication regimen; Z91.5 Personal history of self-harm; N95.1 Menopausal and female climacteric states; Z62.810 Personal history of physical and sexual abuse in childhood; F90.9 Attention-deficit hyperactivity disorder, unspecified type; Z79.899 Other long term (current) drug therapy; G47.00 Insomnia, unspecified

== ENCOUNTER → 2024-05-27 | Outpatient (CLI) | payer OTHER ==
[~2024-05-27] MED LIST changes: -BENZ-52 PO; +BENZ1TAB5 PO; +BUPR150T12 PO; -BUPR150T3 PO; +BUSP5TA PO; -CATA0.1D TOP; +CLON1PAT3 TOP; +FLUO-365 PO; +GABA-1172 PO; +GABA-1490 PO; -GABA-843 PO; +HYDR50TA70 PO; +IBUP-1720 PO; +QUET1TAB17 PO; -QUET1TAB7 PO; +TRAZ-186 PO
== END ==
LOC: M RAD 14:45
PROVIDERS: ATTEND Family Medicine
DX: Z12.2 Encounter for screening for malignant neoplasm of respiratory organs (principal); F17.210 Nicotine dependence, cigarettes, uncomplicated; R91.8 Other nonspecific abnormal finding of lung field

== ENCOUNTER → 2024-11-20 | Outpatient (CLI) | payer OTHER | LOC: M WHC 08:11 | PROVIDERS: ATTEND Family Medicine | DX: R92.8 Other abnormal and inconclusive findings on diagnostic imaging of breast (principal); Z53.9 Procedure and treatment not carried out, unspecified reason ==